=== PATIENT | female | born 1990 | race African-American/Black ===

== ENCOUNTER 2017-05-09 09:21 | Emergency (ER) | payer OTHER ==
[~2017-05-09] VITALS: Ht 172.7 cm; Wt 90.7 kg
[~2017-05-09 09:21] MED LIST: HYDR-971 PO; HYDR12.58 PO; TRAM50TA PO
--- NOTE | 2017-05-09 09:47 | PHYS DOC ---
Past History Past Medical History: Hypertension, Other Past Surgical History: Other Smoking: Cigarettes Alcohol Use: Occasionally Drug Use: None Adult General HPI HPI Patient is a 26-year-old female who was walking down stairs in the dark and slipped and fell and landed on her bottom and then fell all the way down 10 steps on her bottom. She is G1 approximately 18 weeks and is following with Dr. Franco as her OB. She says that her right lower back hurts and that she feels pelvic cramping. She denies any loss of fluids vaginal bleeding dysuria hematuria nausea vomiting. She has no difficulty ambulating and no unilateral weakness numbness or tingling. She has a history of hypertension for which she takes nifedipine for. She also has a history of trigeminal neuralgia and says that it has been hurting the left side of her face more. She has been taking Tylenol without much relief in symptoms. Review of Systems Review of Systems Constitutional: Denies fever or chills [] Eyes: Denies change in visual acuity, redness, or eye pain [] Respiratory: Denies cough or shortness of breath [] Cardiovascular: No chest pain GI: Denies abdominal pain, nausea, vomiting, bloody stools or diarrhea [] : Denies dysuria or hematuria [] Musculoskeletal: Denies back pain or joint pain [] Integument: Denies abrasion or laceration Neurologic: Denies headache, focal weakness or sensory changes [] Allergies Allergies Allergies Coded Allergies Type Severity Reaction Last Updated Verified Milk Containing Products Allergy Unknown 01/27/16 Yes lisinopril Allergy Unknown 01/27/16 No Physical Exam Physical Exam Constitutional: Well developed, well nourished, no acute distress, non-toxic appearance. [] HENT: Normocephalic, atraumatic, bilateral external ears normal, oropharynx moist, no oral exudates, nose normal. [] Eyes: PERRLA, EOMI, conjunctiva normal, no discharge. [] Neck: Normal range of motion, no tenderness, supple, no stridor. [] Cardiovascular:Heart rate regular rhythm, no murmur [] Lungs & Thorax: Bilateral breath sounds clear to auscultation [] Abdomen: Bowel sounds normal, soft, no tenderness, no masses, no pulsatile masses. [] Skin: Warm, dry, no erythema, no rash. [] Back: No tenderness, no CVA tenderness. [] Extremities: No tenderness, no cyanosis, no clubbing, ROM intact, no edema. [] Neurologic: Alert and oriented X 3, normal motor function, normal sensory function, no focal deficits noted. [] Psychologic: Affect normal, judgement normal, mood normal. [] EKG EKG [] Radiology/Procedures Radiology/Procedures [] Course & Med Decision Making Course & Med Decision Making Patient has mild right lumbar tenderness to palpation. No abdominal tenderness on examination and she has a normal bedside ultrasound. I spoke to Dr. Henderson who is on-call for patient's OB and he said if there is no bleeding that patient could be discharged with reassurance. He looked up her blood type and it is O+. I will refer patient to neurology for her trigeminal neuralgia and provide her Tylenol with Codeine for her pain for now. Patient aware and agreeable with plan for discharge and verbalized understanding of the need for short-term follow-up in the strict ER return precautions discussed worsening pain bleeding or other general concerns. Dragon Disclaimer Dragon Disclaimer This chart was dictated in whole or in part using Voice Recognition software in a busy, high-work load, and often noisy Emergency Department environment. It may contain unintended and wholly unrecognized errors or omissions. Departure Departure: Impression: Primary Impression: Lumbar strain Additional Impression: Trigeminal neuralgia Disposition: 01 HOME, SELF-CARE Condition: GOOD Referrals: PCP,CHRIS (PCP) Barby OLIVEIRA MD Patient Instructions: Abdominal Pain During Scripts Acetaminophen With Codeine (TYLENOL WITH CODEINE #3 TABLET) 1 Each Tablet 1 TAB PO Q6HRS Y for PAIN, #20 TAB Prov: BENJA TURNER DO 05/09/17 Acetaminophen With Codeine (TYLENOL WITH CODEINE #3 TABLET) 1 Each Tablet 1 TAB PO Q6HRS Y for PAIN, #20 TAB Prov: BENJA TURNER DO 05/09/17 Problem Qualifiers Primary Impression: Lumbar strain Encounter type: initial encounter Qualified Codes: S39.012A - Strain of muscle, fascia and tendon of lower back, initial encounter BENJA TURNER DO May 09, 2017 09:47
[2017-05-09] MEDS ORDERED: ACET-704 PO ×2 (10:03→10:08)
[2017-05-09 10:20] VITALS: BP 157/100
[2017-05-09] MEDS ORDERED: ACETAMINOPHEN/CODEINE 300/30MG TABLET PO ONE (10:30)
== END 2017-05-09 10:20 | disposition home or self-care (01) ==
LOC: ER 09:21
DX: O9A.212 Injury, poisoning and certain other consequences of external causes complicating pregnancy, second trimester (principal); S39.012A Strain of muscle, fascia and tendon of lower back, initial encounter; O99.352 Diseases of the nervous system complicating pregnancy, second trimester; O16.2 Unspecified maternal hypertension, second trimester; G50.0 Trigeminal neuralgia; O99.332 Smoking (tobacco) complicating pregnancy, second trimester; Z3A.18 18 weeks gestation of pregnancy; Z88.8 Allergy status to other drugs, medicaments and biological substances; Z91.011 Allergy to milk products; W10.8XXA Fall (on) (from) other stairs and steps, initial encounter; Y93.01 Activity, walking, marching and hiking; Y99.8 Other external cause status; Y92.89 Other specified places as the place of occurrence of the external cause
CPT/HCPCS: 99283

== ENCOUNTER 2017-10-17 12:56 | Emergency (ER) | payer OTHER ==
[~2017-10-17] VITALS: Ht 160 cm; Wt 94.3 kg
[~2017-10-17 12:56] MED LIST changes: +ACET-704 PO
[2017-10-17] MEDS ORDERED: IPRATRPIUM/ALBUTEROL 0.5/2.5MG 3 ML NEBU. NEB ONE (13:45)
--- NOTE | 2017-10-17 13:49 | RAD ---
Chest, 2 views, 10/17/2017: History: Cough, back pain Comparison is made to a study from 09/01/2014. The heart size and pulmonary vascularity are normal. There is a surgical clip projected over the right hilum. No pulmonary infiltrate is seen. There is no evidence of pleural fluid. There is a mild right convexity thoracic scoliosis. IMPRESSION: No acute cardiopulmonary abnormality is detected.
--- NOTE | 2017-10-17 13:53 | RAD ---
Lumbar spine, 3 views, 10/17/2017: History: Back pain The lumbar vertebral heights and intervertebral disc spaces are well-maintained. No fracture or dislocation is evident. There is a mild left convexity thoracolumbar scoliosis. There is a small radiopacity projected over the right paraspinous region at the renal level. The appearance raises the possibility of an intrarenal calculus. This was also evident on the 07/13/2016 exam. IMPRESSION: 1. Mild lumbar scoliosis. 2. No acute lumbar spine abnormality is detected. 3. Persistent right paraspinous calcification raising the possibility of a urinary tract calculus versus a phlebolith.
--- NOTE | 2017-10-17 14:05 | PHYS DOC ---
Past History Past Medical History: Hypertension, Other Past Surgical History: Other Smoking: Non-smoker Alcohol Use: Occasionally Drug Use: None Adult General Chief Complaint Chief Complaint: MULTIPLE COMPLAINTS, BACK PAIN, COUGH HPI HPI 27-year-old female patient with normal vaginal delivery 4 weeks ago at [facility] states she had an accidental fall while she was at Hospital and was told that everything was fine but her chronic back pain getting worse since she was discharged from hospital. Patient states she had another accidental fall while was at shower and since then her back pain getting worse. Patient denies radiation of pain and states her pain is sharp without neurodeficit and urine and bowel incontinence. Patient also complaining of productive cough for the last one week and earache and nasal congestion and subjective fever. Patient complaining of pain in bilateral side of her chest during episodes of cough and rated her pain 9/10 as a sharp pain. Patient denied sick contacts at home, shortness of breath, severe vaginal bleeding or discharge. Patient currently is not breast-feeding her baby. Review of Systems Review of Systems Constitutional: Reports fever and chills [] Eyes: Denies change in visual acuity, redness, or eye pain [] HENT: Reports nasal congestion, denies sore throat [] Respiratory: Denies shortness of breath, reports cough [] Cardiovascular: No additional information not addressed in HPI [] GI: Denies abdominal pain, nausea, vomiting, bloody stools or diarrhea [] : Denies dysuria or hematuria [] Musculoskeletal: Reports back pain, denies joint pain [] Integument: Denies rash or skin lesions [] Neurologic: Denies headache, focal weakness or sensory changes [] Endocrine: Denies polyuria or polydipsia [] All other systems were reviewed and found to be within normal limits, except as documented in this note. Current Medications Current Medications Current Medications Medications (Trade) Dose Ordered Sig/Andrzej Start Time Stop Time Status Last Admin Dose Admin Albuterol/ Ipratropium (Duoneb) 3 ml 1X ONCE 10/17/17 13:45 10/17/17 13:46 UNV Allergies Allergies Allergies Coded Allergies Type Severity Reaction Last Updated Verified Milk Containing Products Allergy Unknown 01/27/16 Yes lisinopril Allergy Unknown 01/27/16 No Physical Exam Physical Exam Constitutional: Well nourished, mild distress, non-toxic appearance,looks depress. [] HENT: Normocephalic, atraumatic, bilateral external ears normal, oropharynx moist, no oral exudates, nose normal. [] Eyes: PERRLA, EOMI, conjunctiva normal, no discharge. [] Neck: Normal range of motion, no tenderness, supple, no stridor. [] Cardiovascular:Heart rate regular rhythm, no murmur [] Lungs & Thorax: Bilateral breath sounds clear to auscultation [] Abdomen: Bowel sounds normal, soft, no tenderness, no masses, no pulsatile masses. [] Skin: Warm, dry, no erythema, no rash. [] Back: No tenderness, no CVA tenderness. [] Extremities: No tenderness, no cyanosis, no clubbing, ROM intact, no edema. [] Neurologic: Alert and oriented X 3, normal motor function, normal sensory function, no focal deficits noted. [] Psychologic: Affect normal, judgement normal, depressed mood. EKG EKG [] Radiology/Procedures Radiology/Procedures X-ray of lumbar spine and chest x-ray did not show acute finding.[] Course & Med Decision Making Course & Med Decision Making Pertinent Imaging studies reviewed. (See chart for details) Evaluation of patient in ER showed 27-year-old female patient with complaining of several medical problems including chronic back pain exacerbation and cough with pain in her chest during episodes of cough. Patient had unremarkable physical exam except for depression but denies suicidal and homicidal ideation or hallucination. Lumbar x-ray was unremarkable except for possible phlebitis or kidney stone. Patient did not have hematuria or history of kidney stone and her pain was chronic for almost one month without concern for kidney stone. Patient felt better with treatment in ER. Plan discharge patient home with diagnosis of bronchitis and chronic back pain exacerbation. [] Dragon Disclaimer Dragon Disclaimer This electronic medical record was generated, in whole or in part, using a voice recognition dictation system. Departure Departure: Impression: Primary Impression: Exacerbation of chronic back pain Additional Impressions: Acute bronchiolitis Uncontrolled hypertension Fall at home Disposition: HOME, SELF-CARE (At 1425) Condition: IMPROVED Referrals: PCP,NO (PCP) Patient Instructions: Back Pain, Adult, Bronchitis Additional Instructions: Apply ice on your back Getting plenty of liquids Scripts Benzonatate (TESSALON PERLE) 100 Mg Capsule 1 CAP PO TID, #21 CAP Prov: GABE ALBA MD 10/17/17 Naproxen (NAPROSYN) 500 Mg Tablet 500 MG PO BID Y for PAIN, #14 TAB Prov: GABE ALBA MD 10/17/17 Azithromycin (ZITHROMAX) 250 Mg Tablet 1 PKG PO UD, #6 TAB Prov: GABE ALBA MD 10/17/17 Problem Qualifiers GABE ALBA MD Oct 17, 2017 14:05
[2017-10-17 14:10] VITALS: BP 158/95
[2017-10-17] MEDS ORDERED: AZIT250T PO (14:29)
[2017-10-17] MEDS ORDERED: BENZ100C PO (14:29)
[2017-10-17] MEDS ORDERED: NAPR-683 PO (14:29)
== END 2017-10-17 14:34 | disposition home or self-care (01) ==
LOC: ER 12:56
DX: O90.89 Other complications of the puerperium, not elsewhere classified (principal); O99.53 Diseases of the respiratory system complicating the puerperium; M54.89 Other dorsalgia; G89.29 Other chronic pain; J21.9 Acute bronchiolitis, unspecified; I10 Essential (primary) hypertension; W19.XXXA Unspecified fall, initial encounter; Y93.89 Activity, other specified; Y99.8 Other external cause status; Y92.89 Other specified places as the place of occurrence of the external cause
CPT/HCPCS: 71020; 72100; 94640; 99284; J7620

== ENCOUNTER 2019-05-15 14:21 | Emergency (ER) | payer OTHER ==
[~2019-05-15] VITALS: Ht 160 cm; Wt 79.5 kg
[~2019-05-15 14:21] MED LIST changes: +AZIT250T PO; +BENZ100C PO; +HYDR-3165 PO; -HYDR-971 PO; +NAPR-683 PO
[2019-05-15 14:35] VITALS: BP 128/77
[2019-05-15 15:07] LABS: AMPHETAMINE/METHAMPHETAMINE NEG (NEG); BARBITURATES NEG (NEG); BENZODIAZEPINES NEG (NEG); CANNABINOIDS NEG (NEG); COCAINE NEG (NEG); METHADONE NEG (NEG); OPIATES NEG (NEG); PHENCYCLIDINE NEG (NEG)
[2019-05-15 15:12] LABS: AMORPHOUS SEDIMENT,UR PRESENT /HPF; BACTERIA,URINE FEW /HPF (0-FEW); BILIRUBIN,URINE NEG (NEG); CLARITY,URINE TURBID; COLOR,URINE AMBER; GLUCOSE,URINE NEG (NEG); NITRITE,URINE NEG (NEG); RBC,URINE OCC /HPF (0-2); SQUAMOUS EPITHELIAL CELL,UR FEW /LPF; UROBILINOGEN,URINE 4 mg/dL (0.2 mg/dL)
[2019-05-15 15:13] LABS: BASO % 1 % (0-3); EOS % 0 % (0-3); HEMATOCRIT 36.6 % (36.0-47.0); HEMOGLOBIN 12.1 g/dL (12.0-15.5); LYMPH # 0.9 x10^3/uL (1.0-4.8); LYMPH % 23 % (24-48); MEAN CORPUSCULAR HEMOGLOBIN 29 pg (25-35); MEAN CORPUSCULAR HGB CONC 33 g/dL (31-37); MEAN CORPUSCULAR VOLUME 87 fL (79-100); MONO # 0.4 x10^3/uL (0.0-1.1); MONO % 10 % (0-9); NEUT # 2.5 x10^3uL (1.8-7.7); NEUT % 66 % (31-73); PLATELET COUNT 190 x10^3/uL (140-400); RED BLOOD COUNT 4.19 x10^6/uL (3.50-5.40); RED CELL DISTRIBUTION WIDTH 14.5 % (11.5-14.5); WHITE BLOOD COUNT 3.8 x10^3/uL (4.0-11.0)
--- NOTE | 2019-05-15 15:19 | PHYS DOC ---
Past History Past Medical History: Anxiety, Depression, Hypertension (KAUSHAL BOWER Jr., DO) Past Surgical History: Other (KAUSHAL BOWER Jr., DO) Smoking: Non-smoker Alcohol Use: Occasionally Drug Use: None (KAUSHAL BOWER Jr., DO) Adult General Chief Complaint Chief Complaint: PSYCH EVALUATION HPI HPI Patient is a 29-year-old female who presents with report of severe anxiety and history of auditory hallucinations. She indicates that she is not been having any hallucinations today. She states that she had gone over to the [facility] and would like to be admitted for mental health evaluation and management. She denies any suicidal or homicidal ideations.[] (KAUSHAL BOWER Jr., DO) Review of Systems Review of Systems Constitutional: Denies fever or chills [] Respiratory: Denies cough or shortness of breath [] Cardiovascular: No additional information not addressed in HPI [] GI: Denies abdominal pain, nausea, vomiting, bloody stools or diarrhea [] Musculoskeletal: Admits to chronic back pain [] Integument: Denies rash or skin lesions [] All other systems were reviewed and found to be within normal limits, except as documented in this note. (KAUSHAL BOWER Jr., DO) Allergies Allergies Allergies Coded Allergies Type Severity Reaction Last Updated Verified Milk Containing Products Allergy Unknown 01/27/16 Yes lisinopril Allergy Unknown 01/27/16 No (KAUSHAL BOWER Jr., DO) Physical Exam Physical Exam Constitutional: Well developed, well nourished, no acute distress, non-toxic appearance. [] HENT: Normocephalic, atraumatic, bilateral external ears normal, oropharynx moist, no oral exudates, nose normal. [] Eyes: PERRLA, EOMI, conjunctiva normal, no discharge. [] Neck: Normal range of motion, no tenderness, supple, no stridor. [] Cardiovascular:Heart rate regular rhythm, no murmur [] Lungs & Thorax: Bilateral breath sounds clear to auscultation [] Abdomen: Bowel sounds normal, soft. [] Skin: Warm, dry, no erythema, no rash. [] Extremities: No tenderness, no cyanosis, no clubbing, ROM intact, no edema. [] Neurologic: Alert and oriented X 3, no focal deficits noted. [] Psychologic: Flattened affect with depressed mood. [] (KAUSHAL BOWER Jr. DO) Current Patient Data Vital Signs Vital Signs Date Time Temp Pulse Resp B/P (MAP) Pulse Ox O2 Delivery O2 Flow Rate FiO2 05/15/19 14:35 98.2 100 18 98 Room Air Lab Results Laboratory Tests Test 05/15/19 14:44 Urine Collection Type Unknown Urine Color Hort[place]ia Urine Clarity Turbid Urine pH 8.0 Urine Specific [place] 1.020 Urine Protein 30 mg/dl (NEG-TRACE) Urine Glucose (UA) Neg mg/dL (NEG) Urine Ketones (Stick) Trace mg/dL (NEG) Urine Blood Neg (NEG) Urine Nitrite Neg (NEG) Urine Bilirubin Neg (NEG) Urine Urobilinogen Dipstick 4 mg/dL (0.2 mg/dL) Urine Leukocyte Esterase Neg (NEG) Urine RBC Occ /HPF (0-2) Urine WBC 1-4 /HPF (0-4) Urine Squamous Epithelial Cells Few /LPF Urine Amorphous Sediment Present /HPF Urine Bacteria Few /HPF (0-FEW) Urine Mucus Slight /LPF Urine Opiates Screen Neg (NEG) Urine Methadone Screen Neg (NEG) Urine Barbiturates Neg (NEG) Urine Phencyclidine Screen Neg (NEG) Urine Amphetamine/Methamphetamine Neg (NEG) Urine Benzodiazepines Screen Neg (NEG) Urine Cocaine Screen Neg (NEG) Urine Cannabinoids Screen Neg (NEG) Urine Ethyl Alcohol Neg (NEG) (KAUSHAL BOWER Jr. DO) EKG EKG [] (KAUSHAL BOWER Jr. DO) Radiology/Procedures Radiology/Procedures [] (KAUSHAL BOWER Jr., DO) Course & Med Decision Making Course & Med Decision Making Pertinent Labs and Imaging studies reviewed. (See chart for details) Patient moved to room upon arrival was evaluated by your medical staff after which mental health workup has been initiated on this patient. Upon completion of workup, patient cleared medically and Norberto from [facility] has come to evaluate patient. Patient is requesting voluntary admission for further management of her anxiety and hallucinations. At this time, we are awaiting accepting facility and patient is being signed out to oncoming ER physician at 6:00 PM. (KAUSHAL BOWER Jr., DO) Course & Med Decision Making Impression: 1. Anxiety Disorder 2. Schizoaffective Disorder 3. Hallucinations Wanting for placement - 1800 Waiting for placement- request crackers and a drink. Very flat affect. 1900 hrs. 2000 hrs. unable to find placement for pt. [facility] requested pt to be discharge and to follow with them lst thing in the AM . Discussed this plan with pt. Pt. denies any suicidal or suicidal ideation. Pt. states the voices are not telling her to do " anything bad". They are just irritating. Pt. does agree to on low dose of Zyprexa before discharge. (TRAM HOWARD MD) Dragon Disclaimer Dragon Disclaimer This electronic medical record was generated, in whole or in part, using a voice recognition dictation system. (KAUSHAL BOWER Jr. DO) Departure Departure: Impression: Primary Impression: Hallucinations Disposition: HOME, SELF-CARE Condition: STABLE Referrals: ALBERTO COLON (PCP) Discharge Summary Visit Information Final Diagnosis Problems Medical Problems: (1) Hallucinations Status: Acute (TRAM HOWARD MD) Final Diagnosis Problems Medical Problems: (1) Hallucinations Status: Acute (KAUSHAL BOWER Jr., DO) Brief Hospital Course Allergies Allergies Coded Allergies Type Severity Reaction Last Updated Verified Milk Containing Products Allergy Unknown 01/27/16 Yes lisinopril Allergy Unknown 01/27/16 No Vital Signs Vital Signs Date Time Temp Pulse Resp B/P (MAP) Pulse Ox O2 Delivery O2 Flow Rate FiO2 05/15/19 14:35 98.2 100 18 98 Room Air Lab Results Laboratory Tests Test 05/15/19 14:44 05/15/19 15:00 Urine Collection Type Unknown Urine Color Hort[place]ia Urine Clarity Turbid Urine pH 8.0 Urine Specific [place] 1.020 Urine Protein 30 mg/dl (NEG-TRACE) Urine Glucose (UA) Neg mg/dL (NEG) Urine Ketones (Stick) Trace mg/dL (NEG) Urine Blood Neg (NEG) Urine Nitrite Neg (NEG) Urine Bilirubin Neg (NEG) Urine Urobilinogen Dipstick 4 mg/dL (0.2 mg/dL) Urine Leukocyte Esterase Neg (NEG) Urine RBC Occ /HPF (0-2) Urine WBC 1-4 /HPF (0-4) Urine Squamous Epithelial Cells Few /LPF Urine Amorphous Sediment Present /HPF Urine Bacteria Few /HPF (0-FEW) Urine Mucus Slight /LPF Urine Opiates Screen Neg (NEG) Urine Methadone Screen Neg (NEG) Urine Barbiturates Neg (NEG) Urine Phencyclidine Screen Neg (NEG) Urine Amphetamine/Methamphetamine Neg (NEG) Urine Benzodiazepines Screen Neg (NEG) Urine Cocaine Screen Neg (NEG) Urine Cannabinoids Screen Neg (NEG) Urine Ethyl Alcohol Neg (NEG) White Blood Count 3.8 x10^3/uL (4.0-11.0) Red Blood Count 4.19 x10^6/uL (3.50-5.40) Hemoglobin 12.1 g/dL (12.0-15.5) Hematocrit 36.6 % (36.0-47.0) Mean Corpuscular Volume 87 fL (79-100) Mean Corpuscular Hemoglobin 29 pg (25-35) Mean Corpuscular Hemoglobin Concent 33 g/dL (31-37) Red Cell Distribution Width 14.5 % (11.5-14.5) Platelet Count 190 x10^3/uL (140-400) Neutrophils (%) (Auto) 66 % (31-73) Lymphocytes (%) (Auto) 23 % (24-48) Monocytes (%) (Auto) 10 % (0-9) Eosinophils (%) (Auto) 0 % (0-3) Basophils (%) (Auto) 1 % (0-3) Neutrophils # (Auto) 2.5 x10^3uL (1.8-7.7) Lymphocytes # (Auto) 0.9 x10^3/uL (1.0-4.8) Monocytes # (Auto) 0.4 x10^3/uL (0.0-1.1) Eosinophils # (Auto) 0.0 x10^3/uL (0.0-0.7) Basophils # (Auto) 0.0 x10^3/uL (0.0-0.2) Sodium Level 142 mmol/L (136-145) Potassium Level 3.5 mmol/L (3.5-5.1) Chloride Level 107 mmol/L (98-107) Carbon Dioxide Level 28 mmol/L (21-32) Anion Gap 7 (6-14) Blood Urea Nitrogen 9 mg/dL (7-20) Creatinine 0.8 mg/dL (0.6-1.0) Estimated GFR (Cockcroft-Gault) 103.3 BUN/Creatinine Ratio 11 (6-20) Glucose Level 103 mg/dL (70-99) Calcium Level 8.9 mg/dL (8.5-10.1) Magnesium Level 2.0 mg/dL (1.8-2.4) Total Bilirubin 0.5 mg/dL (0.2-1.0) Aspartate Amino Transf (AST/SGOT) 10 U/L (15-37) Alanine Aminotransferase (ALT/SGPT) 20 U/L (14-59) Alkaline Phosphatase 63 U/L (46-116) Total Protein 7.1 g/dL (6.4-8.2) Albumin 3.7 g/dL (3.4-5.0) Albumin/Globulin Ratio 1.1 (1.0-1.7) Ethyl Alcohol Level < 10 mg/dL (0-10) Brief Hospital Course Ms. Herbert is a 29 old female who presented with anxiety and schizoaffective disorder. Discharged home with follow up in AM at [facility]. Pt. has establish care at the clinic. (TRAM HOWARD MD) Allergies Allergies Coded Allergies Type Severity Reaction Last Updated Verified Milk Containing Products Allergy Unknown 01/27/16 Yes lisinopril Allergy Unknown 01/27/16 No Vital Signs Vital Signs Date Time Temp Pulse Resp B/P (MAP) Pulse Ox O2 Delivery O2 Flow Rate FiO2 05/15/19 14:35 98.2 100 18 98 Room Air Lab Results Laboratory Tests Test 05/15/19 14:44 05/15/19 15:00 Urine Collection Type Unknown Urine Color [place]ia Urine Clarity Turbid Urine pH 8.0 Urine Specific [place] 1.020 Urine Protein 30 mg/dl (NEG-TRACE) Urine Glucose (UA) Neg mg/dL (NEG) Urine Ketones (Stick) Trace mg/dL (NEG) Urine Blood Neg (NEG) Urine Nitrite Neg (NEG) Urine Bilirubin Neg (NEG) Urine Urobilinogen Dipstick 4 mg/dL (0.2 mg/dL) Urine Leukocyte Esterase Neg (NEG) Urine RBC Occ /HPF (0-2) Urine WBC 1-4 /HPF (0-4) Urine Squamous Epithelial Cells Few /LPF Urine Amorphous Sediment Present /HPF Urine Bacteria Few /HPF (0-FEW) Urine Mucus Slight /LPF Urine Opiates Screen Neg (NEG) Urine Methadone Screen Neg (NEG) Urine Barbiturates Neg (NEG) Urine Phencyclidine Screen Neg (NEG) Urine Amphetamine/Methamphetamine Neg (NEG) Urine Benzodiazepines Screen Neg (NEG) Urine Cocaine Screen Neg (NEG) Urine Cannabinoids Screen Neg (NEG) Urine Ethyl Alcohol Neg (NEG) White Blood Count 3.8 x10^3/uL (4.0-11.0) Red Blood Count 4.19 x10^6/uL (3.50-5.40) Hemoglobin 12.1 g/dL (12.0-15.5) Hematocrit 36.6 % (36.0-47.0) Mean Corpuscular Volume 87 fL (79-100) Mean Corpuscular Hemoglobin 29 pg (25-35) Mean Corpuscular Hemoglobin Concent 33 g/dL (31-37) Red Cell Distribution Width 14.5 % (11.5-14.5) Platelet Count 190 x10^3/uL (140-400) Neutrophils (%) (Auto) 66 % (31-73) Lymphocytes (%) (Auto) 23 % (24-48) Monocytes (%) (Auto) 10 % (0-9) Eosinophils (%) (Auto) 0 % (0-3) Basophils (%) (Auto) 1 % (0-3) Neutrophils # (Auto) 2.5 x10^3uL (1.8-7.7) Lymphocytes # (Auto) 0.9 x10^3/uL (1.0-4.8) Monocytes # (Auto) 0.4 x10^3/uL (0.0-1.1) Eosinophils # (Auto) 0.0 x10^3/uL (0.0-0.7) Basophils # (Auto) 0.0 x10^3/uL (0.0-0.2) Sodium Level 142 mmol/L (136-145) Potassium Level 3.5 mmol/L (3.5-5.1) Chloride Level 107 mmol/L (98-107) Carbon Dioxide Level 28 mmol/L (21-32) Anion Gap 7 (6-14) Blood Urea Nitrogen 9 mg/dL (7-20) Creatinine 0.8 mg/dL (0.6-1.0) Estimated GFR (Cockcroft-Gault) 103.3 BUN/Creatinine Ratio 11 (6-20) Glucose Level 103 mg/dL (70-99) Calcium Level 8.9 mg/dL (8.5-10.1) Magnesium Level 2.0 mg/dL (1.8-2.4) Total Bilirubin 0.5 mg/dL (0.2-1.0) Aspartate Amino Transf (AST/SGOT) 10 U/L (15-37) Alanine Aminotransferase (ALT/SGPT) 20 U/L (14-59) Alkaline Phosphatase 63 U/L (46-116) Total Protein 7.1 g/dL (6.4-8.2) Albumin 3.7 g/dL (3.4-5.0) Albumin/Globulin Ratio 1.1 (1.0-1.7) Ethyl Alcohol Level < 10 mg/dL (0-10) Brief Hospital Course Ms. Herbert is a 29 old [sex] who presented with [ ] (KAUSHAL BOWER Jr. DO) Discharge Information Condition at Discharge: Improved, Stable Disposition/Orders: D/C to Home Dischare Medications Current Medications Olanzapine (ZyPREXA) 2.5 mg 1X ONCE PO Last administered on 05/15/19at 20:42; Start 05/15/19 at 20:45; Stop 05/15/19 at 20:46; Status DC Active Scripts Active Tessalon Perle (Benzonatate) 100 Mg Capsule 1 Cap PO TID Naprosyn (Naproxen) 500 Mg Tablet 500 Mg PO BID PRN Zithromax (Azithromycin) 250 Mg Tablet 1 Pkg PO UD Tylenol With Codeine #3 Tablet (Acetaminophen With Codeine) 1 Each Tablet 1 Tab PO Q6HRS PRN Tylenol With Codeine #3 Tablet (Acetaminophen With Codeine) 1 Each Tablet 1 Tab PO Q6HRS PRN Tramadol Hcl (Tramadol HCl) 50 Mg Tablet 50 Mg PO PRN Q6HRS PRN (TRAM HOWARD MD) Dischare Medications Current Medications Olanzapine (ZyPREXA) 2.5 mg 1X ONCE PO Last administered on 05/15/19at 20:42; Start 05/15/19 at 20:45; Stop 05/15/19 at 20:46; Status DC Active Scripts Active Tessalon Perle (Benzonatate) 100 Mg Capsule 1 Cap PO TID Naprosyn (Naproxen) 500 Mg Tablet 500 Mg PO BID PRN Zithromax (Azithromycin) 250 Mg Tablet 1 Pkg PO UD Tylenol With Codeine #3 Tablet (Acetaminophen With Codeine) 1 Each Tablet 1 Tab PO Q6HRS PRN Tylenol With Codeine #3 Tablet (Acetaminophen With Codeine) 1 Each Tablet 1 Tab PO Q6HRS PRN Tramadol Hcl (Tramadol HCl) 50 Mg Tablet 50 Mg PO PRN Q6HRS PRN (AKUSHAL BOWER Jr. DO) Dragon Disclaimer This chart was dictated in whole or in part using Voice Recognition software in a busy, high-work load, and often noisy Emergency Department environment. It may contain unintended and wholly unrecognized errors or omissions. (TRAM HOWARD MD) Dragon Disclaimer This chart was dictated in whole or in part using Voice Recognition software in a busy, high-work load, and often noisy Emergency Department environment. It may contain unintended and wholly unrecognized errors or omissions. (KAUSHAL BOWER Jr. DO) KAUSHAL BOWER Jr., DO May 15, 2019 15:19 TRAM HOWARD MD May 15, 2019 18:13
[2019-05-15 15:29] LABS: ALBUMIN 3.7 g/dL (3.4-5.0); ALBUMIN/GLOBULIN RATIO 1.1 (1.0-1.7); CALCIUM 8.9 mg/dL (8.5-10.1); CREATININE 0.8 mg/dL (0.6-1.0); GFR 103.3; POTASSIUM 3.5 mmol/L (3.5-5.1); TOTAL BILIRUBIN 0.5 mg/dL (0.2-1.0); TOTAL PROTEIN 7.1 g/dL (6.4-8.2)
[2019-05-15] MEDS ORDERED: OLANZapine 2.5 MG TABLET PO ONE (20:45)
== END 2019-05-15 21:17 | disposition home or self-care (01) ==
LOC: ER 14:21
DX: F20.9 Schizophrenia, unspecified (principal); F41.9 Anxiety disorder, unspecified; G89.29 Other chronic pain; M54.89 Other dorsalgia; F32.9 Major depressive disorder, single episode, unspecified; I10 Essential (primary) hypertension; Z88.8 Allergy status to other drugs, medicaments and biological substances; Z91.011 Allergy to milk products
CPT/HCPCS: 36415; 80053; 80307; 81001; 83735; 85025; 99284; G0480

== ENCOUNTER 2019-05-20 09:12 | Emergency (ER) | payer OTHER ==
[2019-05-20 10:05] LABS: BASO % 1 % (0-3); EOS % 1 % (0-3); HEMATOCRIT 38.7 % (36.0-47.0); HEMOGLOBIN 12.8 g/dL (12.0-15.5); LYMPH # 0.9 x10^3/uL (1.0-4.8); LYMPH % 24 % (24-48); MEAN CORPUSCULAR HEMOGLOBIN 29 pg (25-35); MEAN CORPUSCULAR HGB CONC 33 g/dL (31-37); MEAN CORPUSCULAR VOLUME 88 fL (79-100); MONO # 0.3 x10^3/uL (0.0-1.1); MONO % 9 % (0-9); NEUT # 2.4 x10^3uL (1.8-7.7); NEUT % 65 % (31-73); PLATELET COUNT 201 x10^3/uL (140-400); RED BLOOD COUNT 4.41 x10^6/uL (3.50-5.40); RED CELL DISTRIBUTION WIDTH 14.6 % (11.5-14.5); WHITE BLOOD COUNT 3.7 x10^3/uL (4.0-11.0)
[2019-05-20 10:14] LABS: AMPHETAMINE/METHAMPHETAMINE NEG (NEG); BARBITURATES NEG (NEG); BENZODIAZEPINES NEG (NEG); CANNABINOIDS NEG (NEG); COCAINE NEG (NEG); METHADONE NEG (NEG); OPIATES NEG (NEG); PHENCYCLIDINE NEG (NEG)
[2019-05-20 10:17] LABS: BACTERIA,URINE FEW /HPF (0-FEW); BILIRUBIN,URINE SMALL (NEG); CLARITY,URINE HAZY; COLOR,URINE YELLOW; GLUCOSE,URINE NEG (NEG); NITRITE,URINE NEG (NEG); SQUAMOUS EPITHELIAL CELL,UR MANY /LPF; UROBILINOGEN,URINE 2 mg/dL (0.2 mg/dL)
[2019-05-20 10:18] LABS: ALBUMIN 3.8 g/dL (3.4-5.0); CALCIUM 8.7 mg/dL (8.5-10.1); CREATININE 0.7 mg/dL (0.6-1.0); DIRECT BILIRUBIN 0.1 mg/dL (0.0-0.2); GFR 120.6; POTASSIUM 3.7 mmol/L (3.5-5.1); TOTAL BILIRUBIN 0.3 mg/dL (0.2-1.0); TOTAL PROTEIN 7.4 g/dL (6.4-8.2)
[2019-05-20 10:18] LABS: AMORPHOUS SEDIMENT,UR PRESENT /HPF; U PREG PATIENT NEGATIVE (NEG)
[2019-05-20] MEDS ORDERED: ACETAMINOPHEN 500 MG TABLET PO ONE (16:15)
--- NOTE | 2019-05-20 16:47 | PHYS DOC ---
Past History Past Medical History: Anxiety, Depression (GABE ALBA MD) Past Surgical History: No Surgical History (GABE ALBA MD) Smoking: Non-smoker Alcohol Use: None Drug Use: None (GABE ALBA MD) Adult General Chief Complaint Chief Complaint: ANXIETY/PANIC ATTACK HPI HPI Patient is a 29 year old female who presents with complaining of anxiety. Patient complaining of slightly for the last 2 years that getting worse gradually and she states he has" mental health emergency" and needs to come to the hospital. She denies suicidal and homicidal ideation and hallucination but states she feels hopeless. Patient states she was admitted to [facility] for the same problem on May and discharged home with prescription for Paxil and blood pressure medication. Patient denies history of suicidal ideation or attempt regnancy, using drugs or alcohol. (GABE ALBA MD) Review of Systems Review of Systems Constitutional: Denies fever or chills [] Eyes: Denies change in visual acuity, redness, or eye pain [] HENT: Denies nasal congestion or sore throat [] Respiratory: Denies cough or shortness of breath [] Cardiovascular: No additional information not addressed in HPI [] GI: Denies abdominal pain, nausea, vomiting, bloody stools or diarrhea [] : Denies dysuria or hematuria [] Musculoskeletal: Reports chronic back pain, denies joint pain [] Integument: Denies rash or skin lesions [] Neurologic: Denies headache, focal weakness or sensory changes [] Endocrine: Denies polyuria or polydipsia [] All other systems were reviewed and found to be within normal limits, except as documented in this note. (GABE ALBA MD) Current Medications Current Medications Current Medications Medications (Trade) Dose Ordered Sig/Andrzej Start Time Stop Time Status Last Admin Dose Admin Acetaminophen (Tylenol) 1,000 mg 1X ONCE 05/20/19 16:15 05/20/19 16:16 DC (GABE ALBA MD) Allergies Allergies Allergies Coded Allergies Type Severity Reaction Last Updated Verified Milk Containing Products Allergy Unknown 01/27/16 Yes lisinopril Allergy Unknown 01/27/16 No (GABE ALBA MD) Physical Exam Physical Exam Constitutional: Well nourished, no acute distress, non-toxic appearance, avoid eye contact. [] HENT: Normocephalic, atraumatic, bilateral external ears normal, oropharynx moist, no oral exudates, nose normal. [] Eyes: PERRLA, EOMI, conjunctiva normal, no discharge. [] Neck: Normal range of motion, no tenderness, supple, no stridor. [] Cardiovascular:Heart rate regular rhythm, no murmur [] Lungs & Thorax: Bilateral breath sounds clear to auscultation [] Abdomen: Bowel sounds normal, soft, no tenderness, no masses, no pulsatile masses. [] Skin: Warm, dry, no erythema, no rash. [] Back: No tenderness, no CVA tenderness. [] Extremities: No tenderness, no cyanosis, no clubbing, ROM intact, no edema. [] Neurologic: Alert and oriented X 3, normal motor function, normal sensory function, no focal deficits noted. [] Psychologic: Affect depressed, judgement normal, mood normal. [] (GABE ALBA MD) Current Patient Data Vital Signs Vital Signs Date Time Temp Pulse Resp B/P (MAP) Pulse Ox O2 Delivery O2 Flow Rate FiO2 05/20/19 09:38 87 18 100 Room Air Lab Results Laboratory Tests Test 05/20/19 09:30 05/20/19 09:53 Urine Collection Type Unknown Urine Color Yellow Urine Clarity Hazy Urine pH 7.5 Urine Specific [place] 1.020 Urine Protein 30 mg/dl (NEG-TRACE) Urine Glucose (UA) Neg mg/dL (NEG) Urine Ketones (Stick) Trace mg/dL (NEG) Urine Blood Neg (NEG) Urine Nitrite Neg (NEG) Urine Bilirubin Small (NEG) Urine Urobilinogen Dipstick 2 mg/dL (0.2 mg/dL) Urine Leukocyte Esterase Trace (NEG) Urine RBC 1-2 /HPF (0-2) Urine WBC 1-4 /HPF (0-4) Urine Squamous Epithelial Cells Many /LPF Urine Amorphous Sediment Present /HPF Urine Bacteria Few /HPF (0-FEW) Urine Mucus Marked /LPF Urine Test Negative (NEG) Urine Opiates Screen Neg (NEG) Urine Methadone Screen Neg (NEG) Urine Barbiturates Neg (NEG) Urine Phencyclidine Screen Neg (NEG) Urine Amphetamine/Methamphetamine Neg (NEG) Urine Benzodiazepines Screen Neg (NEG) Urine Cocaine Screen Neg (NEG) Urine Cannabinoids Screen Neg (NEG) Urine Ethyl Alcohol Neg (NEG) White Blood Count 3.7 x10^3/uL (4.0-11.0) L Red Blood Count 4.41 x10^6/uL (3.50-5.40) Hemoglobin 12.8 g/dL (12.0-15.5) Hematocrit 38.7 % (36.0-47.0) Mean Corpuscular Volume 88 fL (79-100) Mean Corpuscular Hemoglobin 29 pg (25-35) Mean Corpuscular Hemoglobin Concent 33 g/dL (31-37) Red Cell Distribution Width 14.6 % (11.5-14.5) H Platelet Count 201 x10^3/uL (140-400) Neutrophils (%) (Auto) 65 % (31-73) Lymphocytes (%) (Auto) 24 % (24-48) Monocytes (%) (Auto) 9 % (0-9) Eosinophils (%) (Auto) 1 % (0-3) Basophils (%) (Auto) 1 % (0-3) Neutrophils # (Auto) 2.4 x10^3uL (1.8-7.7) Lymphocytes # (Auto) 0.9 x10^3/uL (1.0-4.8) L Monocytes # (Auto) 0.3 x10^3/uL (0.0-1.1) Eosinophils # (Auto) 0.0 x10^3/uL (0.0-0.7) Basophils # (Auto) 0.0 x10^3/uL (0.0-0.2) Sodium Level 142 mmol/L (136-145) Potassium Level 3.7 mmol/L (3.5-5.1) Chloride Level 107 mmol/L (98-107) Carbon Dioxide Level 26 mmol/L (21-32) Anion Gap 9 (6-14) Blood Urea Nitrogen 14 mg/dL (7-20) Creatinine 0.7 mg/dL (0.6-1.0) Estimated GFR (Cockcroft-Gault) 120.6 Glucose Level 90 mg/dL (70-99) Calcium Level 8.7 mg/dL (8.5-10.1) Total Bilirubin 0.3 mg/dL (0.2-1.0) Direct Bilirubin 0.1 mg/dL (0.0-0.2) Aspartate Amino Transferase (AST) 11 U/L (15-37) L Alanine Aminotransferase (ALT) 28 U/L (14-59) Alkaline Phosphatase 89 U/L (46-116) Total Protein 7.4 g/dL (6.4-8.2) Albumin 3.8 g/dL (3.4-5.0) Ethyl Alcohol Level < 10 mg/dL (0-10) (GABE ALBA MD) EKG EKG [] (GABE ALBA MD) Radiology/Procedures Radiology/Procedures [] (GABE ALBA MD) Course & Med Decision Making Course & Med Decision Making Pertinent Labs reviewed. (See chart for details) Evaluation of patient in ER showed 29-year-old female patient with complaining of anxiety and hopelessness without suicidal and homicidal ideation. Patient had unremarkable physical exam and labs. Patient was evaluated by [facility] staff who contacted her mother and her mother was concerned that she is not eating and doesn't do anything and locks herself inside a room. She has criteria for inpatient treatment. Waiting for involuntary placement. Sign out given to at 1800 for further evaluation and final disposition. Discussed current findings and plan with patient and family, who acknowledge understanding and agreement. (GABE ALBA MD) Course & Med Decision Making 2330: Took over care of patient at 1800. Awaiting confirmation of bed at OSH. Patient with complaint of back soreness. Given Tylenol and Ibuprofen in the ED for treatment. Vital signs stable. 0553: Patient remains in stable condition and cooperative. Care of patient signed out to [facility]. (POLLO RAMIREZ MD) Course & Med Decision Making I spoke with Dr. Tian at [facility] and he has accepted the patient. She will be transferred by ambulance. (DONNIE SHELTON DO) Dragon Disclaimer Dragon Disclaimer This electronic medical record was generated, in whole or in part, using a voice recognition dictation system. (GABE ALBA MD) Departure Departure: Impression: Primary Impression: Hopelessness Referrals: ALBERTO COLON (PCP) GABE ALBA MD May 20, 2019 16:47 POLLO RAMIREZ MD May 20, 2019 23:32 DONNIE SHELTON DO May 21, 2019 10:12
[2019-05-20] MEDS ORDERED: IBUPROFEN 600 MG TABLET. PO ONE (23:15)
[2019-05-21 09:24] VITALS: BP 137/76
== END 2019-05-21 11:25 ==
LOC: ER 09:12
DX: R45.89 Other symptoms and signs involving emotional state (principal); F41.9 Anxiety disorder, unspecified; F32.9 Major depressive disorder, single episode, unspecified; Z88.8 Allergy status to other drugs, medicaments and biological substances; Z91.011 Allergy to milk products
CPT/HCPCS: 36415; 80048; 80076; 80307; 81001; 81025; 85025; 87086; 99285; G0480

== ENCOUNTER 2019-06-26 13:41 | Emergency (ER) | payer MEDICAID, OTHER ==
[~2019-06-26] VITALS: Ht 160 cm; Wt 79.5 kg
[2019-06-26 14:13] VITALS: BP 135/100
--- NOTE | 2019-06-26 14:21 | PHYS DOC ---
Past History Past Medical History: Anxiety, Depression Past Surgical History: No Surgical History Smoking: Non-smoker Alcohol Use: None Drug Use: None Adult General Chief Complaint Chief Complaint: BACK PAIN OR INJURY HPI HPI Patient is a 29-year-old female presents complaining of right-sided low back pain after falling in the bathtub last night she also complains of bilateral knee pain. She has been able to walk on her own feet. No loss of bowel or bladder control. No syncopal episode. No chest pain or palpitations. No nausea or vomiting. No home medicines been taken. Increased pain with movement. Pain is getting worse over time. Pain is moderate in intensity.[] Review of Systems Review of Systems Constitutional: Denies fever or chills [] Eyes: Denies change in visual acuity, redness, or eye pain [] HENT: Denies nasal congestion or sore throat [] Respiratory: No difficulty breathing or cough[] Cardiovascular: No chest pain or palpitations[] GI: Denies abdominal pain, nausea, vomiting, bloody stools or diarrhea [] : Denies dysuria or hematuria [] Musculoskeletal: See history of present illness[] Integument: Denies rash or skin lesions [] Neurologic: Denies headache, focal weakness or sensory changes [] Endocrine: Denies polyuria or polydipsia [] All other systems were reviewed and found to be within normal limits, except as documented in this note. Allergies Allergies Allergies Coded Allergies Type Severity Reaction Last Updated Verified Milk Containing Products Allergy Unknown 01/27/16 Yes lisinopril Allergy Unknown 01/27/16 No Physical Exam Physical Exam Constitutional: Well developed, well nourished, no acute distress, non-toxic appearance. [] HENT: Normocephalic, atraumatic, bilateral external ears normal, oropharynx moist, no oral exudates, nose normal. [] Eyes: PERRLA, EOMI, conjunctiva normal, no discharge. [] Neck: Normal range of motion, no tenderness, supple, no stridor. [] Cardiovascular:Heart rate regular rhythm, no murmur [] Lungs & Thorax: Bilateral breath sounds clear to auscultation [] Abdomen: Bowel sounds normal, soft, no tenderness, no masses, no pulsatile masses. [] Skin: Warm, dry, no erythema, no rash. [] Back: Tenderness of the left sided paraspinal musculature. Normal gait, slightly decreased range of motion with rotation and side bending to the right. Normal rotation and side bending to the left as well as forward bending. Normal gait, no CVA tenderness. [] Extremities: Bilateral knees have diffuse tenderness, no focal bony tenderness, no varus or valgus laxity, negative drawer, negative Mirella test. A joint above and a joined below were evaluated and were normal. Distally Neurovascularly int act The other 2 extremities show: No tenderness, no cyanosis, no clubbing, ROM intact, no edema. [] Neurologic: Alert and oriented X 3, normal motor function, normal sensory function, no focal deficits noted. [] Psychologic: Affect normal, judgement normal, mood normal. [] Current Patient Data Vital Signs Vital Signs Date Time Temp Pulse Resp B/P (MAP) Pulse Ox O2 Delivery O2 Flow Rate FiO2 06/26/19 14:13 101.7 90 18 98 Room Air EKG EKG [] Radiology/Procedures Radiology/Procedures [] Course & Med Decision Making Course & Med Decision Making Pertinent Labs and Imaging studies reviewed. (See chart for details) ED course and medical decision making: Patient arrived, was placed in bed, and tolerated exam well. She was able to provide a urine sample and will treat for UTI based on this. There is no evidence of a fracture or neurologic compromise either in her back nor her knees. We will treat with outpatient pain medicines as well as antibiotics for the urinary tract infection. There is no evidence of pyelonephritis. Findings were discussed with the patient voiced understanding. All questions were answered. She was discharged in improved condition.[] Dragon Disclaimer Dragon Disclaimer This electronic medical record was generated, in whole or in part, using a voice recognition dictation system. Departure Departure: Impression: Primary Impression: Back contusion Additional Impressions: Urinary tract infection Knee contusion Disposition: 01 HOME, SELF-CARE Condition: IMPROVED Referrals: ALBERTO COLON (PCP) Follow-up in 2 days Patient Instructions: Contusion, Urinary Tract Infection Additional Instructions: Drink plenty of fluids. Take medication as prescribed. Follow-up with your regular doctor in 2 days. Return to the ER if worsening pain, loss of bowel or bladder control, or any other concerns. Scripts Orphenadrine Citrate (ORPHENADRINE CITRATE) 100 Mg Tablet.er 100 MG PO BID for BACK PAIN, #20 TAB.SR Prov: RAFAEL ABBOTT DO 06/26/19 Meloxicam (MELOXICAM) 7.5 Mg Tablet 7.5 MG PO DAILY for PAIN, #20 TAB Prov: RAFAEL ABBOTT DO 06/26/19 Cephalexin (KEFLEX) 500 Mg Capsule 500 MG PO TID for UTI for 10 Days, #30 CAP Prov: RAFAEL ABBOTT DO 06/26/19 Problem Qualifiers Primary Impression: Back contusion Encounter type: initial encounter Laterality: left Qualified Codes: S20.222A - Contusion of left back wall of thorax, initial encounter Additional Impressions: Urinary tract infection Urinary tract infection type: site unspecified Hematuria presence: without hematuria Qualified Codes: N39.0 - Urinary tract infection, site not specified Knee contusion Encounter type: initial encounter Laterality: unspecified laterality Qualified Codes: S80.00XA - Contusion of unspecified knee, initial encounter RAFAEL ABBOTT DO Jun 26, 2019 14:21
[2019-06-26] MEDS ORDERED: MELO7.5T29 PO (14:57)
[2019-06-26] MEDS ORDERED: CEPH-264 PO (14:57)
[2019-06-26] MEDS ORDERED: ORPH-16 PO (14:57)
[2019-06-26 15:06] LABS: BILIRUBIN,URINE NEG (NEG); CLARITY,URINE CLEAR; COLOR,URINE YELLOW; GLUCOSE,URINE NEG (NEG); NITRITE,URINE NEG (NEG); UROBILINOGEN,URINE 1 mg/dL (0.2 mg/dL)
== END 2019-06-26 15:12 | disposition home or self-care (01) ==
LOC: ER 13:41
DX: S30.0XXA Contusion of lower back and pelvis, initial encounter (principal); S80.02XA Contusion of left knee, initial encounter; S80.01XA Contusion of right knee, initial encounter; N39.0 Urinary tract infection, site not specified; W18.2XXA Fall in (into) shower or empty bathtub, initial encounter; Y93.89 Activity, other specified; Y92.89 Other specified places as the place of occurrence of the external cause; Y99.8 Other external cause status
CPT/HCPCS: 81003; 81025; 99283

== ENCOUNTER 2019-08-26 11:20 | Emergency (ER) | payer MEDICAID ==
[~2019-08-26] VITALS: Ht 160 cm; Wt 79.5 kg
[~2019-08-26 11:20] MED LIST changes: +CEPH-264 PO; +MELO7.5T29 PO; +ORPH-16 PO
[2019-08-26] MEDS ORDERED: IV NORMAL SALINE 1,000ML 1,000 ML IV SCH (11:58)
[2019-08-26] MEDS ORDERED: ONDANSETRON PF 4 MG/2 ML VIAL. IVP ONE (12:00)
[2019-08-26 12:40] LABS: BACTERIA,URINE FEW /HPF (0-FEW); BILIRUBIN,URINE NEG (NEG); CLARITY,URINE CLOUDY; COLOR,URINE YELLOW; GLUCOSE,URINE NEG (NEG); NITRITE,URINE NEG (NEG); RBC,URINE OCC /HPF (0-2); SQUAMOUS EPITHELIAL CELL,UR MANY /LPF; UROBILINOGEN,URINE 0.2 mg/dL (0.2 mg/dL)
[2019-08-26 12:41] LABS: AMORPHOUS SEDIMENT,UR PRESENT /HPF
[2019-08-26 12:55] LABS: BASO % 1 % (0-3); EOS % 1 % (0-3); HEMATOCRIT 43.1 % (36.0-47.0); HEMOGLOBIN 14.4 g/dL (12.0-15.5); LYMPH # 1.3 x10^3/uL (1.0-4.8); LYMPH % 34 % (24-48); MEAN CORPUSCULAR HEMOGLOBIN 30 pg (25-35); MEAN CORPUSCULAR HGB CONC 33 g/dL (31-37); MEAN CORPUSCULAR VOLUME 90 fL (79-100); MONO # 0.4 x10^3/uL (0.0-1.1); MONO % 10 % (0-9); NEUT # 2.2 x10^3uL (1.8-7.7); NEUT % 55 % (31-73); PLATELET COUNT 156 x10^3/uL (140-400); RED BLOOD COUNT 4.81 x10^6/uL (3.50-5.40); RED CELL DISTRIBUTION WIDTH 16.1 % (11.5-14.5)
[2019-08-26 12:57] LABS: ALBUMIN 3.7 g/dL (3.4-5.0); CALCIUM 8.7 mg/dL (8.5-10.1); CREATININE 0.7 mg/dL (0.6-1.0); GFR 120.6; POTASSIUM 4.1 mmol/L (3.5-5.1); TOTAL BILIRUBIN 0.5 mg/dL (0.2-1.0); TOTAL PROTEIN 7.3 g/dL (6.4-8.2)
[2019-08-26] MEDS ORDERED: IOHEXOL 300 MG/ML 75 ML VIAL. IV ONE (13:30)
--- NOTE | 2019-08-26 14:55 | RAD ---
CT ABD PELV W/ IV CONTRST ONLY Indication: Lower abdominal pain. Exposure: One or more of the following individualized dose reduction techniques were utilized for this examination: 1. Automated exposure control 2. Adjustment of the mA and/or kV according to patient size 3. Use of iterative reconstruction technique. Technique: Intravenous contrast was given. No oral contrast per request. Comparison: August 24, 2014. FINDINGS: Small pleural effusions are identified in lung bases as well as mild atelectasis. The upper dome of the right lobe of liver is not included in the [id number]. Visualized liver appears unremarkable spleen unremarkable. Spleen borderline enlarged measuring 12.2 cm length. Pancreas difficult to distinguish from adjacent unopacified bowel loops but no definite acute finding. No evidence of adrenal mass. Kidneys demonstrate symmetric enhancement without mass lesion or hydronephrosis. Tiny nonobstructive calculus in the upper pole the right kidney. No calcified gallstone. Aorta is nonaneurysmal. Mildly enlarged retroperitoneal aortocaval lymph nodes are identified as well as mildly enlarged mesenteric lymph nodes. These measure up to 1 cm in short axis. Overall these appear similar to the prior study. Mildly enlarged iliac lymph nodes are identified bilaterally measuring up to 12 mm in short axis. These appear roughly similar as prior. Mildly enlarged inguinal lymph nodes are identified. Right inguinal lymph node measures 12 mm diameter, slightly larger than prior study at which time it measured 9 mm. No significant small bowel distention. No evidence of acute colitis. The appendix appears within normal limits, and contains some gas within the lumen. Mild free pelvic fluid. Cystic lesion or lesions within the right adnexa. Largest of these measures 5.5 cm diameter, and 23 Hounsfield units, slightly greater than would be expected with a simple cyst. There is also mild irregular noncystic density within the inferior aspect of the larger lesion. There may be a several very small left adnexal cystic structures. Urinary bladder appears unremarkable. Vertebral body height and alignment appears stable as does a thoracic scoliosis with sclerotic density within the T8 vertebral body. IMPRESSION: 1. Small pleural effusions. 2. Mild pelvic free fluid. Lesions within the right adnexa, could represent complex/hemorrhagic cysts, versus cystic mass. Recommend pelvic ultrasound for further evaluation. 3. Mildly enlarged mesenteric, retroperitoneal, iliac and inguinal lymph nodes. For the most part this appears similar to the study of 2013 although some nodes may be slightly larger. Correlate for any clinical history or clinical signs to suggest neoplastic etiology, otherwise these could be of chronic reactive nature. 4. Tiny nonobstructive right renal calculus. Electronically signed by: José Miguel Ramirez MD (08/26/2019 2:52 PM) [id number]
--- NOTE | 2019-08-26 15:04 | PHYS DOC ---
Past History Past Medical History: Anxiety, Depression, Hypertension Past Surgical History: Other Additional Past Surgical Histo: lymph node removed right lung Smoking: Non-smoker Alcohol Use: None Drug Use: None Adult General Chief Complaint Chief Complaint: BACK PAIN OR INJURY [facility] HPI Patient is a 29-year-old female who presents with complaint of chronic lower back pain and an acute onset of lower abdominal pain that started a couple of days ago. Patient rates her pain to be a 9 out of 10. She denies any nausea, vomiting or diarrhea. She indicates that the pain in her lower abdomen as sharp and stabbing in nature. She states that the pain in her back is like a deep ache. She states the pain in her back is worsened with bending over. She states that nothing is improving her symptoms.[] Review of Systems Review of Systems Constitutional: Denies fever or chills [] Respiratory: Denies cough or shortness of breath [] Cardiovascular: No additional information not addressed in HPI [] GI: Complains of lower abdominal pain without vomiting or diarrhea [] : Denies dysuria or hematuria [] Musculoskeletal: Complains of lower back pain [] All other systems were reviewed and found to be within normal limits, except as documented in this note. Current Medications Current Medications Current Medications Medications (Trade) Dose Ordered Sig/Andrzej Start Time Stop Time Status Last Admin Dose Admin Fentanyl Citrate (Fentanyl 2ml Vial) 25 mcg PRN Q15MIN PRN 08/26/19 12:00 08/27/19 11:59 08/26/19 14:01 25 MCG Iohexol (Omnipaque 300 Mg/ml) 75 ml 1X ONCE 08/26/19 13:30 08/26/19 13:35 DC 08/26/19 13:47 75 ML Ondansetron HCl (Zofran) 4 mg 1X ONCE 08/26/19 12:00 08/26/19 12:05 DC 08/26/19 12:35 4 MG Sodium Chloride 1,000 ml @ 1,000 mls/hr Q1H 08/26/19 11:58 08/26/19 12:57 DC 08/26/19 12:34 1,000 MLS/HR Allergies Allergies Allergies Coded Allergies Type Severity Reaction Last Updated Verified Milk Containing Products Allergy Unknown 08/26/19 Yes lisinopril Allergy Unknown 08/26/19 No Physical Exam Physical Exam Constitutional: Well developed, well nourished, no acute distress, non-toxic appearance. [] HENT: Normocephalic, atraumatic, bilateral external ears normal, oropharynx moist, no oral exudates, nose normal. [] Eyes: PERRLA, EOMI, conjunctiva normal, no discharge. [] Neck: Normal range of motion, no tenderness, supple. [] Cardiovascular: Regular rate and rhythm[] Lungs & Thorax: Bilateral breath sounds clear to auscultation [] Abdomen: Bowel sounds normal, soft, with suprapubic and right sided adnexal tenderness. [] Skin: Warm, dry, no erythema, no rash. [] Back: There is tenderness to palpation in the bilateral lumbar paraspinal musc ulature. [] Extremities: No tenderness, no cyanosis, no clubbing, ROM intact. [] Neurologic: Alert and oriented X 3, no focal deficits noted. [] Current Patient Data Vital Signs Vital Signs Date Time Temp Pulse Resp B/P (MAP) Pulse Ox O2 Delivery O2 Flow Rate FiO2 08/26/19 14:03 62 16 157/112 (127) 100 Room Air 08/26/19 11:49 98.8 Lab Results Laboratory Tests Test 08/26/19 12:10 08/26/19 12:19 08/26/19 12:31 Urine Collection Type Void Urine Color Yellow Urine Clarity Cloudy Urine pH 8.0 Urine Specific [place] 1.015 Urine Protein Neg (NEG-TRACE) Urine Glucose (UA) Neg mg/dL (NEG) Urine Ketones (Stick) Neg mg/dL (NEG) Urine Blood Neg (NEG) Urine Nitrite Neg (NEG) Urine Bilirubin Neg (NEG) Urine Urobilinogen Dipstick 0.2 mg/dL (0.2 mg/dL) Urine Leukocyte Esterase Neg (NEG) Urine RBC Occ /HPF (0-2) Urine WBC 1-4 /HPF (0-4) Urine Squamous Epithelial Cells Many /LPF Urine Amorphous Sediment Present /HPF Urine Bacteria Few /HPF (0-FEW) Urine Mucus Slight /LPF POC Urine HCG, Qualitative hcg negative (Negative) White Blood Count 4.0 x10^3/uL (4.0-11.0) Red Blood Count 4.81 x10^6/uL (3.50-5.40) Hemoglobin 14.4 g/dL (12.0-15.5) Hematocrit 43.1 % (36.0-47.0) Mean Corpuscular Volume 90 fL (79-100) Mean Corpuscular Hemoglobin 30 pg (25-35) Mean Corpuscular Hemoglobin Concent 33 g/dL (31-37) Red Cell Distribution Width 16.1 % (11.5-14.5) H Platelet Count 156 x10^3/uL (140-400) Neutrophils (%) (Auto) 55 % (31-73) Lymphocytes (%) (Auto) 34 % (24-48) Monocytes (%) (Auto) 10 % (0-9) H Eosinophils (%) (Auto) 1 % (0-3) Basophils (%) (Auto) 1 % (0-3) Neutrophils # (Auto) 2.2 x10^3uL (1.8-7.7) Lymphocytes # (Auto) 1.3 x10^3/uL (1.0-4.8) Monocytes # (Auto) 0.4 x10^3/uL (0.0-1.1) Eosinophils # (Auto) 0.0 x10^3/uL (0.0-0.7) Basophils # (Auto) 0.0 x10^3/uL (0.0-0.2) Sodium Level 139 mmol/L (136-145) Potassium Level 4.1 mmol/L (3.5-5.1) Chloride Level 104 mmol/L (98-107) Carbon Dioxide Level 28 mmol/L (21-32) Anion Gap 7 (6-14) Blood Urea Nitrogen 8 mg/dL (7-20) Creatinine 0.7 mg/dL (0.6-1.0) Estimated GFR (Cockcroft-Gault) 120.6 BUN/Creatinine Ratio 11 (6-20) Glucose Level 79 mg/dL (70-99) Calcium Level 8.7 mg/dL (8.5-10.1) Total Bilirubin 0.5 mg/dL (0.2-1.0) Aspartate Amino Transferase (AST) 17 U/L (15-37) Alanine Aminotransferase (ALT) 19 U/L (14-59) Alkaline Phosphatase 66 U/L (46-116) Total Protein 7.3 g/dL (6.4-8.2) Albumin 3.7 g/dL (3.4-5.0) Albumin/Globulin Ratio 1.0 (1.0-1.7) Lipase 63 U/L (73-393) L EKG EKG [] Radiology/Procedures Radiology/Procedures [] Impressions: PROCEDURE: CT ABD PELV W/ IV CONTRST ONLY CT ABD PELV W/ IV CONTRST ONLY Indication: Lower abdominal pain. Exposure: One or more of the following individualized dose reduction techniques were utilized for this examination: 1. Automated exposure control 2. Adjustment of the mA and/or kV according to patient size 3. Use of iterative reconstruction technique. Technique: Intravenous contrast was given. No oral contrast per request. Comparison: August 24, 2014. FINDINGS: Small pleural effusions are identified in lung bases as well as mild atelectasis. The upper dome of the right lobe of liver is not included in the [id number]. Visualized liver appears unremarkable spleen unremarkable. Spleen borderline enlarged measuring 12.2 cm length. Pancreas difficult to distinguish from adjacent unopacified bowel loops but no definite acute finding. No evidence of adrenal mass. Kidneys demonstrate symmetric enhancement without mass lesion or hydronephrosis. Tiny nonobstructive calculus in the upper pole the right kidney. No calcified gallstone. Aorta is nonaneurysmal. Mildly enlarged retroperitoneal aortocaval lymph nodes are identified as well as mildly enlarged mesenteric lymph nodes. These measure up to 1 cm in short axis. Overall these appear similar to the prior study. Mildly enlarged iliac lymph nodes are identified bilaterally measuring up to 12 mm in short axis. These appear roughly similar as prior. Mildly enlarged inguinal lymph nodes are identified. Right inguinal lymph node measures 12 mm diameter, slightly larger than prior study at which time it measured 9 mm. No significant small bowel distention. No evidence of acute colitis. The appendix appears within normal limits, and contains some gas within the lumen. Mild free pelvic fluid. Cystic lesion or lesions within the right adnexa. Largest of these measures 5.5 cm diameter, and 23 Hounsfield units, slightly greater than would be expected with a simple cyst. There is also mild irregular noncystic density within the inferior aspect of the larger lesion. There may be a several very small left adnexal cystic structures. Urinary bladder appears unremarkable. Vertebral body height and alignment appears stable as does a thoracic scoliosis with sclerotic density within the T8 vertebral body. IMPRESSION: 1. Small pleural effusions. 2. Mild pelvic free fluid. Lesions within the right adnexa, could represent complex/hemorrhagic cysts, versus cystic mass. Recommend pelvic ultrasound for further evaluation. 3. Mildly enlarged mesenteric, retroperitoneal, iliac and inguinal lymph nodes. For the most part this appears similar to the study of 2014 although some nodes may be slightly larger. Correlate for any clinical history or clinical signs to suggest neoplastic etiology, otherwise these could be of chronic reactive nature. 4. Tiny nonobstructive right renal calculus. Electronically signed by: José Miguel Ramirez MD (08/26/2019 2:52 PM) [facility] DICTATED AND SIGNED BY: JOSÉ MIGUEL RAMIREZ MD DATE: 08/26/19 1453 CC: KAUSHAL BOWER Jr. DO; ALBERTO COLON ~ PROCEDURE: PELVIS COMPLETE Exam: Ultrasound pelvis Indication: Low back pain, pelvic pain for one month Technique: Real-time grayscale and color Doppler images of the pelvis were obtained by the department chairman & ceo. Transabdominal images only. Comparisons: CT same day FINDINGS: Uterus measures 7.6 x 3.6 x 4.2 cm. Endometrium measures 7 mm in thickness. Right ovary measures 9.1 x 4.7 x 7.0 cm. Blood flow is noted within the right ovary. Within the right ovary there is a 5.1 x 4.9 cm complex cystic lesion. Left ovary measures 3.3 x 2.0 x 2.7 cm. Blood flow is noted within the left ovary. No free fluid. IMPRESSION: 1. Within the right ovary there is a 5.1 x 4.9 cm complex cystic lesion, favored represent hemorrhagic cyst based off of sonographic appearance. Follow-up sonogram in 6-12 weeks is recommended. 2. Otherwise, normal sonographic appearance of the uterus and ovaries. Electronically signed by: Hector Barnes MD (08/26/2019 4:11 PM) [facility] Course & Med Decision Making Course & Med Decision Making Pertinent Labs and Imaging studies reviewed. (See chart for details) [] Dragon Disclaimer Dragon Disclaimer This electronic medical record was generated, in whole or in part, using a voice recognition dictation system. Departure Departure: Impression: Primary Impression: Chronic back pain Additional Impression: Hemorrhagic cyst of right ovary Disposition: 01 HOME, SELF-CARE Condition: STABLE Referrals: ALBERTO COLON (PCP) Patient Instructions: Chronic Back Pain, Ovarian Cyst Scripts Ondansetron Hcl (ZOFRAN) 4 Mg Tablet 4 MG PO Q6HRS PRN for NAUSEA, #12 TAB Prov: KAUSHAL BOWER Jr. DO 08/26/19 Hydrocodone Bit/Acetaminophen (NORCO 7.5-325 TABLET) 1 Each Tablet 1 TAB PO PRN Q6HRS PRN for PAIN, #12 TAB 0 Refills Prov: KAUSHAL BOWER Jr. DO 08/26/19 Problem Qualifiers Primary Impression: Chronic back pain Back pain location: low back pain Back pain laterality: unspecified Sciatica presence: without sciatica Qualified Codes: M54.5 - Low back p ain; G89.29 - Other chronic pain KAUSHAL BOWER Jr. DO Aug 26, 2019 15:04
--- NOTE | 2019-08-26 16:14 | RAD ---
Exam: Ultrasound pelvis Indication: Low back pain, pelvic pain for one month Technique: Real-time grayscale and color Doppler images of the pelvis were obtained by the department early childhood. Transabdominal images only. Comparisons: CT same day FINDINGS: Uterus measures 7.6 x 3.6 x 4.2 cm. Endometrium measures 7 mm in thickness. Right ovary measures 9.1 x 4.7 x 7.0 cm. Blood flow is noted within the right ovary. Within the right ovary there is a 5.1 x 4.9 cm complex cystic lesion. Left ovary measures 3.3 x 2.0 x 2.7 cm. Blood flow is noted within the left ovary. No free fluid. IMPRESSION: 1. Within the right ovary there is a 5.1 x 4.9 cm complex cystic lesion, favored represent hemorrhagic cyst based off of sonographic appearance. Follow-up sonogram in 6-12 weeks is recommended. 2. Otherwise, normal sonographic appearance of the uterus and ovaries. Electronically signed by: Hector Barnes MD (08/26/2019 4:11 PM) [facility]
[2019-08-26] MEDS ORDERED: HYDR-3166 PO (16:43)
[2019-08-26] MEDS ORDERED: ONDA4TAB7 PO (16:43)
[2019-08-26 17:15] VITALS: BP 174/109
== END 2019-08-26 17:15 | disposition home or self-care (01) ==
LOC: ER 11:20
DX: N83.201 Unspecified ovarian cyst, right side (principal); G89.29 Other chronic pain; I10 Essential (primary) hypertension; Z91.018 Allergy to other foods; Z88.8 Allergy status to other drugs, medicaments and biological substances
CPT/HCPCS: 36415; 74177; 76856; 80053; 81001; 81025; 83690; 85025; 96374; 96375; 99285; J2405; J3010; Q9967; J7030

== ENCOUNTER 2019-08-28 21:29 | Emergency (ER) | payer MEDICAID ==
[~2019-08-28] VITALS: Ht 160 cm; Wt 79.5 kg
[~2019-08-28 21:29] MED LIST changes: +HYDR-3166 PO; +ONDA4TAB7 PO
[2019-08-28 21:56] VITALS: BP 160/105
--- NOTE | 2019-08-28 21:57 | PHYS DOC ---
Past History Past Medical History: Anxiety, Depression, Hypertension Additional Past Medical Histor: Castleman's disease Past Surgical History: Other Additional Past Surgical Histo: lymph node removed right lung Smoking: Non-smoker Alcohol Use: None Drug Use: None Adult General Chief Complaint Chief Complaint: ABDOMINAL PAIN HPI HPI Patient is a 29-year-old female who presents to the emergency department for evaluation. She states the past month she has been having right-sided back and pelvic pain, on and off, which has gradually been worsening. She was seen in the emergency department here 2 days ago, and had a CT scan and a pelvic ultrasound, reports of which have been reviewed, as have the ER records. She states that the pain got worse over the past 24 hours, and is sharp, which is what caused her to come to the emergency department. She has not had any vaginal discharge, dysuria, she does admit to having some nausea or vomiting. There are no alleviating or exacerbating factors to her symptoms. Patient states she was prescribed #12 hydrocodone pills during her last ER visit, which have not really been managing her pain very well. Review of Systems Review of Systems Constitutional: Denies fever or chills [] Eyes: Denies change in visual acuity, redness, or eye pain [] HENT: Denies nasal congestion or sore throat [] Respiratory: Denies cough or shortness of breath [] Cardiovascular: The patient denies any shortness of breath, chest pain, palpitations, or orthopnea [] GI: No additional information not addressed in HPI[] : Denies dysuria or hematuria [] Musculoskeletal: Denies back pain or joint pain, other than as noted in the history of present illness [] Integument: Denies rash or skin lesions [] Neurologic: Denies headache, focal weakness or sensory changes [] Endocrine: Denies polyuria or polydipsia [] All other systems were reviewed and found to be within normal limits, except as documented in this note. Allergies Allergies Allergies Coded Allergies Type Severity Reaction Last Updated Verified Milk Containing Products Allergy Unknown 08/26/19 Yes lisinopril Allergy Unknown 08/26/19 No Physical Exam Physical Exam PHYSICAL EXAM: CONSTITUTIONAL: Well developed, well nourished HEAD: normocephalic, atraumatic EENT: PERRL, EOMI. Conjunctivae normal color, sclerae non-icteric; moist mucous membranes. NECK: Supple, non-tender; no meningismus. LUNGS: Lungs CTA, breathing even and unlabored. Normal air movement. HEART: Regular rate and rhythm, no murmur CHEST: No deformity; non-tender ABDOMEN: The abdomen is soft, there is tenderness to palpation diffusely in the right mid and lower abdomen, just superior to the pelvic brim without any definite pelvic tenderness, without rebound or guarding. The remainder the abdomen is soft and non-tender, no masses or bruits. EXTREM: Normal ROM; no deformity, no calf tenderness. Normal pulses palpable in all extremities. There is no pedal edema. SKIN: No rash; no diaphoresis NEURO: Alert; normal speech and cognition; CN's grossly intact; strength grossly intact without focal deficit. BACK: No CVA TTP. PELVIC EXAM: Normal external genitalia. There is a small amount of thin white frothy vaginal discharge, the cervix otherwise appears normal. There is no significant cervical motion tenderness. There is tenderness to palpation in the right adnexa with there is a slight sensation of a mass present, the patient's body habitus does limit the exam somewhat. Exam was performed in the presence of ER nurse, Amanda. Current Patient Data Lab Results Laboratory Tests Test 08/28/19 21:36 08/28/19 22:00 Urine Collection Type Unknown Urine Color Straw Urine Clarity Hazy Urine pH 6.5 Urine Specific [place] 1.020 Urine Protein Neg Urine Glucose (UA) Neg mg/dL Urine Ketones (Stick) Neg mg/dL Urine Blood Trace Urine Nitrite Neg Urine Bilirubin Neg Urine Urobilinogen Dipstick 0.2 mg/dL Urine Leukocyte Esterase Small Urine RBC Occ /HPF Urine WBC 1-4 /HPF Urine Squamous Epithelial Cells Mod /LPF Urine Bacteria Many /HPF Urine Test Negative Current Medications Medications (Trade) Dose Ordered Sig/Andrzej Route PRN Reason Start Time Stop Time Status Last Admin Dose Admin Oxycodone/ Acetaminophen (Percocet 5/325) 1 tab 1X ONCE PO 08/28/19 22:15 08/28/19 22:16 DC 08/28/19 22:10 WET PREP Final YEAST NONE SEEN TRICHOMONAS NONE SEEN CLUE CELLS CLUE CELLS PRESENT ALTERED SHAQUILLE ALTERED SHAQUILLE PRESENT SUGGESTIVE OF BACTERIAL VAGINOSIS WBCS FEW RBCS MODERATE SQUAMOUS EPS MODERATE EKG EKG [] Radiology/Procedures Radiology/Procedures [] Course & Med Decision Making Course & Med Decision Making Pertinent Labs and Imaging studies reviewed. (See chart for details) []10:35 AM: The patient's condition remains stable. Awaiting wet prep results. I discussed the possibility of repeating an ultrasound for her at this ER visit, we discussed the differential diagnosis to include ovarian torsion although the clinical suspicion that this is present is very low, and thus the yield of ultrasound was felt to be low. After discussing this the patient and I both agreed that doing another ultrasound 2 days after her initial ultrasound was not warranted at this time. This seems to have been ongoing for quite some time with the patient and I discussed importance of close gynecological follow-up, and return precautions were discussed in detail. She will be given additional pain medication, and possible antibiotics pending the wet prep result which will be reviewed when available. Dragon Disclaimer Dragon Disclaimer This electronic medical record was generated, in whole or in part, using a voice recognition dictation system. Departure Departure: Impression: Primary Impression: Pelvic pain in female Additional Impression: Bacterial vaginosis Disposition: HOME, SELF-CARE Condition: STABLE Referrals: ALBERTO COLON (PCP) Patient Instructions: Bacterial Vaginosis, Ovarian Cyst, Pelvic Pain, Female Additional Instructions: Follow-up with a special client bus driver is important for further diagnostic evaluation and treatment of your condition. Please call Dr. Vigil, at [phone] tomorrow m ornivan to schedule follow-up appointment. Scripts Oxycodone Hcl/Acetaminophen (PERCOCET 5-325 MG TABLET ) 1 Each Tablet 1 TAB PO Q6HRS PRN for PAIN MDD 2 Tablet(s), #15 TAB 0 Refills Prov: BENJA ENCINAS MD 08/28/19 Metronidazole (FLAGYL) 500 Mg Tablet 1 TAB PO BID for -, #14 TAB Prov: BENJA ENCINAS MD 08/28/19 Problem Qualifiers BENJA ENCINAS MD Aug 28, 2019 21:57
[2019-08-28 22:12] LABS: BILIRUBIN,URINE NEG (NEG); CLARITY,URINE HAZY; COLOR,URINE STRAW; GLUCOSE,URINE NEG (NEG)
[2019-08-28 22:13] LABS: BACTERIA,URINE MANY /HPF (0-FEW); NITRITE,URINE NEG (NEG); RBC,URINE OCC /HPF (0-2); SQUAMOUS EPITHELIAL CELL,UR MOD /LPF; UROBILINOGEN,URINE 0.2 mg/dL (0.2 mg/dL)
[2019-08-28 22:15] LABS: U PREG PATIENT NEGATIVE (NEG)
[2019-08-28] MEDS ORDERED: oxyCODONE/APAP 5/325 1 TAB TABLET PO ONE (22:15)
[2019-08-28] MEDS ORDERED: METR500T PO (22:40)
[2019-08-28] MEDS ORDERED: OXYC1TAB15 PO (22:40)
[2019-09-01 16:07] LABS: CHLAMYDIA PROBE Negative (Negative)
== END 2019-08-28 22:45 | disposition home or self-care (01) ==
LOC: ER 21:29
DX: N76.0 Acute vaginitis (principal); B96.89 Other specified bacterial agents as the cause of diseases classified elsewhere; I10 Essential (primary) hypertension; Z88.8 Allergy status to other drugs, medicaments and biological substances; Z91.011 Allergy to milk products
CPT/HCPCS: 36415; 81001; 81025; 87086; 87491; 87591; 99284; Q0111

== ENCOUNTER 2019-09-07 21:18 | Emergency (ER) | payer MEDICAID ==
[~2019-09-07] VITALS: Ht 160 cm; Wt 104.0 kg
[~2019-09-07 21:18] MED LIST changes: +METR500T PO; +OXYC1TAB15 PO
--- NOTE | 2019-09-07 21:23 | ED.ADGEN ---
Past History Past Medical History: Anxiety, Depression, Hypertension, Ovarian Cyst Additional Past Medical Histor: Castleman's disease Past Surgical History: Other Additional Past Surgical Histo: lymph node removed right lung Smoking: Non-smoker Alcohol Use: None Drug Use: None, Marijuana Adult General Chief Complaint Chief Complaint ".. I know I got an Ovarian cyst.. I been follow with Dr. Vigil.. he says I need surgery.. and we are to schedule .. it... but my pain got a lot worse tonight...".." I was to see him lst thing this coming morning.. .but my pain is so much worse.." HPI HPI Patient is a 29 year old female who presents with above hx and complaints severe diffuse burning abdomen pain. Some localization to Rt. at site of prior diagnosed ovarian cyst. Pt. rate her pain as 9-10/10. Nothing makes the pain better. Pt. denies and trauma. No vaginal discharge. No history of STDs. 4 -5 lifetime sexual partners. Did have a full Sunday meal at 1400 hrs.. The patient states her pain became quite severe acutely tonight. Patient has had previous CT and ultrasound and has planned surgery this coming week or 2 for her complex ovarian cysts. 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 Patient denies any history of immunosuppression. Denies travel or specific ill contacts. Review of Systems Review of Systems Constitutional: Denies fever or chills [] Eyes: Denies change in visual acuity, redness, or eye pain [] HENT: Denies nasal congestion or sore throat [] Respiratory: Denies cough or shortness of breath [] Cardiovascular: No additional information not addressed in HPI [] GI:Complaints of severe abdominal pain, nausea,. Denies vomiting, bloody stools or diarrhea [] : Denies dysuria or hematuria [] Musculoskeletal: Denies back pain or joint pain [] Integument: Denies rash or skin lesions [] Neurologic: Denies headache, focal weakness or sensory changes [] Endocrine: Denies polyuria or polydipsia [] All other systems were reviewed and found to be within normal limits, except as documented in this note. Family History Family History Noncontributory Current Medications Current Medications Current Medications Medications (Trade) Dose Ordered Sig/Andrzej Start Time Stop Time Status Last Admin Dose Admin Famotidine (Pepcid Vial) 20 mg 1X ONCE 09/07/19 22:30 09/07/19 22:31 DC 09/07/19 22:28 20 MG Ketorolac Tromethamine (Toradol 30mg Vial) 30 mg 1X ONCE 09/07/19 22:00 09/07/19 22:27 DC 09/07/19 22:27 30 MG Lactated Ringer's 1,000 ml @ 1,000 mls/hr Q1H 09/07/19 22:15 09/07/19 23:14 DC 09/07/19 23:09 1,000 MLS/HR Lidocaine HCl (Xylocaine 2% Topical 5gm Tube) 5 gloria STK-MED ONCE 09/08/19 00:58 09/08/19 00:58 DC Morphine Sulfate (Morphine 10mg Syringe) 10 mg 1X ONCE 09/08/19 00:30 09/08/19 00:32 DC 09/08/19 01:06 10 MG Ondansetron HCl (Zofran) 8 mg 1X ONCE 09/07/19 22:30 09/07/19 22:31 DC 09/07/19 22:28 8 MG Allergies Allergies Allergies Coded Allergies Type Severity Reaction Last Updated Verified Milk Containing Products Allergy Unknown 08/26/19 Yes lisinopril Allergy Unknown 08/26/19 No Physical Exam Physical Exam Constitutional: in acute distress, non-toxic appearance. [] HENT: Normocephalic, atraumatic, bilateral external ears normal, oropharynx moist, no oral exudates, nose normal. [] Eyes: PERRLA, EOMI, conjunctiva normal, no discharge. [] Neck: Normal range of motion, no tenderness, supple, no stridor. [] Cardiovascular:Heart rate regular rhythm, no murmur [] Lungs & Thorax: Bilateral breath sounds equal at apexes with few scattered wheeze on auscultation [] Old surgery scar. Abdomen: Bowel sounds decreased, soft, diffuse tenderness, no masses, no pulsatile masses. [] Some localization to Rt on rebound. Skin: Warm, dry, no erythema, no rash. [] Back: No tenderness, Rt. CVA tenderness. [] Extremities: No tenderness, no cyanosis, no clubbing, ROM intact, no edema. [] Mild psoas on Rt. Neurologic: Alert and oriented X 3, normal motor function, normal sensory function, no focal deficits noted. [] Psychologic: Affect anxious, judgement normal, mood normal. [] Current Patient Data Vital Signs Vital Signs Date Time Temp Pulse Resp B/P (MAP) Pulse Ox O2 Delivery O2 Flow Rate FiO2 09/08/19 01:06 16 96 09/07/19 22:39 98.8 103 Room Air Lab Results Laboratory Tests Test 09/07/19 22:05 09/07/19 22:15 09/07/19 23:09 Urine Collection Type Unknown Urine Color Yellow Urine Clarity Hazy Urine pH 7.0 Urine Specific [place] 1.015 Urine Protein Neg (NEG-TRACE) Urine Glucose (UA) Neg mg/dL (NEG) Urine Ketones (Stick) Neg mg/dL (NEG) Urine Blood Neg (NEG) Urine Nitrite Neg (NEG) Urine Bilirubin Neg (NEG) Urine Urobilinogen Dipstick 0.2 mg/dL (0.2 mg/dL) Urine Leukocyte Esterase Small (NEG) Urine RBC Occ /HPF (0-2) Urine WBC 1-4 /HPF (0-4) Urine Squamous Epithelial Cells Many /LPF Urine Bacteria 0 /HPF (0-FEW) Urine Opiates Screen Neg (NEG) Urine Methadone Screen Neg (NEG) Urine Barbiturates Neg (NEG) Urine Phencyclidine Screen Neg (NEG) Urine Amphetamine/Methamphetamine Neg (NEG) Urine Benzodiazepines Screen Neg (NEG) Urine Cocaine Screen Neg (NEG) Urine Cannabinoids Screen Pos (NEG) Urine Ethyl Alcohol Neg (NEG) White Blood Count 4.8 x10^3/uL (4.0-11.0) Red Blood Count 4.38 x10^6/uL (3.50-5.40) Hemoglobin 13.4 g/dL (12.0-15.5) Hematocrit 39.7 % (36.0-47.0) Mean Corpuscular Volume 91 fL (79-100) Mean Corpuscular Hemoglobin 31 pg (25-35) Mean Corpuscular Hemoglobin Concent 34 g/dL (31-37) Red Cell Distribution Width 15.7 % (11.5-14.5) H Platelet Count 146 x10^3/uL (140-400) Neutrophils (%) (Auto) 58 % (31-73) Lymphocytes (%) (Auto) 32 % (24-48) Monocytes (%) (Auto) 8 % (0-9) Eosinophils (%) (Auto) 1 % (0-3) Basophils (%) (Auto) 1 % (0-3) Neutrophils # (Auto) 2.8 x10^3uL (1.8-7.7) Lymphocytes # (Auto) 1.5 x10^3/uL (1.0-4.8) Monocytes # (Auto) 0.4 x10^3/uL (0.0-1.1) Eosinophils # (Auto) 0.1 x10^3/uL (0.0-0.7) Basophils # (Auto) 0.0 x10^3/uL (0.0-0.2) Prothrombin Time 10.2 SEC (9.4-11.4) Prothrombin Time INR 1.0 (0.9-1.1) Activated Partial Thromboplast Time 23 SEC (23-33) Sodium Level 141 mmol/L (136-145) Potassium Level 3.6 mmol/L (3.5-5.1) Chloride Level 106 mmol/L (98-107) Carbon Dioxide Level 28 mmol/L (21-32) Anion Gap 7 (6-14) Blood Urea Nitrogen 13 mg/dL (7-20) Creatinine 0.8 mg/dL (0.6-1.0) Estimated GFR (Cockcroft-Gault) 103.3 Glucose Level 87 mg/dL (70-99) Calcium Level 8.0 mg/dL (8.5-10.1) L Total Bilirubin 0.3 mg/dL (0.2-1.0) Direct Bilirubin 0.1 mg/dL (0.0-0.2) Aspartate Amino Transferase (AST) 18 U/L (15-37) Alanine Aminotransferase (ALT) 27 U/L (14-59) Alkaline Phosphatase 62 U/L (46-116) Total Protein 6.8 g/dL (6.4-8.2) Albumin 3.4 g/dL (3.4-5.0) Amylase Level 56 U/L (25-115) Lipase 71 U/L (73-393) L POC Urine HCG, Qualitative hcg negative (Negative) EKG EKG My interpretation EKG shows a sinus rhythm at 93 bpm. No findings acute STEMI of contralateral changes.[] Radiology/Procedures Radiology/Procedures [][address], [place], [place] [id number] IMAGING REPORT Signed PATIENT: SYDE OAKLEY ACCOUNT: [id number] : 1990 LOCATION: ER AGE: 29 SEX: F EXAM STATUS: REG ER ORD. PHYSICIAN: TRAM HOWARD MD REASON: Hx. of large Ovarian cyst.--Rt. PROCEDURE: TRANSVAGINAL Exam: Ultrasound pelvis Indication: Ovarian cyst Technique: Real-time grayscale and color Doppler images of the pelvis were obtained by the department surveillance inspector. Comparisons: 06/26/2019 FINDINGS: Uterus measures 7.7 x 4.7 x 3.5 cm. Endometrium measures 6 mm in thickness. Right ovary measures 4.2 x 2.8 x 2.5 cm. Left ovary measures 2.6 x 2.1 x 2.0 cm. Flow is noted within the ovaries bilaterally. IMPRESSION: 1. Previously seen hemorrhagic cyst within the right ovary has resolved. 2. Normal sonographic appearance of the uterus and ovaries. Electronically signed by: Hector Moreland MD (09/07/2019 11:15 PM) [facility] DICTATED AND SIGNED BY: HECTOR MORELAND MD DATE: 09/07/19 0911 CC: TRAM HOWARD MD; ALBERTO COLON ~ Course & Med Decision Making Course & Med Decision Making Pertinent Labs and Imaging studies reviewed. (See chart for details) Discussed presentation, testing and tx. plan with Dr. Alberto.. will accept pt. at [facility]. Consult with Dr. Donaldson. [] Final Impression Final Impression 1. Severe Abdomen Pain 2. Hx. of ovarian cysts Dragon Disclaimer Dragon Disclaimer This electronic medical record was generated, in whole or in part, using a voice recognition dictation system. TRAM HOWARD MD Sep 07, 2019 21:22
[2019-09-07] MEDS ORDERED: KETOROLAC 30 MG/ML VIAL. IVP ONE (22:00)
--- NOTE | 2019-09-07 22:13 | EKG ---
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
[2019-09-07] MEDS ORDERED: IV RINGERS SOLUTION,LACTATED 1,000 ML IV SCH (22:15)
[2019-09-07] MEDS ORDERED: FAMOTIDINE 20 MG/2 ML VIAL IVP ONE (22:30)
[2019-09-07] MEDS ORDERED: ONDANSETRON PF 4 MG/2 ML VIAL. IVP ONE (22:30)
[2019-09-07 22:33] LABS: BASO % 1 % (0-3); EOS # 0.1 x10^3/uL (0.0-0.7); EOS % 1 % (0-3); HEMATOCRIT 39.7 % (36.0-47.0); HEMOGLOBIN 13.4 g/dL (12.0-15.5); LYMPH # 1.5 x10^3/uL (1.0-4.8); LYMPH % 32 % (24-48); MEAN CORPUSCULAR HEMOGLOBIN 31 pg (25-35); MEAN CORPUSCULAR HGB CONC 34 g/dL (31-37); MEAN CORPUSCULAR VOLUME 91 fL (79-100); MONO # 0.4 x10^3/uL (0.0-1.1); MONO % 8 % (0-9); NEUT # 2.8 x10^3uL (1.8-7.7); NEUT % 58 % (31-73); PLATELET COUNT 146 x10^3/uL (140-400); RED BLOOD COUNT 4.38 x10^6/uL (3.50-5.40); RED CELL DISTRIBUTION WIDTH 15.7 % (11.5-14.5); WHITE BLOOD COUNT 4.8 x10^3/uL (4.0-11.0)
[2019-09-07 22:39] VITALS: BP 150/117
[2019-09-07 22:41] LABS: BACTERIA,URINE 0 /HPF (0-FEW); BILIRUBIN,URINE NEG (NEG); CLARITY,URINE HAZY; COLOR,URINE YELLOW; GLUCOSE,URINE NEG (NEG); NITRITE,URINE NEG (NEG); RBC,URINE OCC /HPF (0-2); SQUAMOUS EPITHELIAL CELL,UR MANY /LPF; UROBILINOGEN,URINE 0.2 mg/dL (0.2 mg/dL)
[2019-09-07 22:42] LABS: BARBITURATES NEG (NEG); BENZODIAZEPINES NEG (NEG); CANNABINOIDS POS (NEG); COCAINE NEG (NEG); METHADONE NEG (NEG); OPIATES NEG (NEG); PHENCYCLIDINE NEG (NEG)
[2019-09-07 22:43] LABS: AMPHETAMINE/METHAMPHETAMINE NEG (NEG)
[2019-09-07 22:45] LABS: ALBUMIN 3.4 g/dL (3.4-5.0); CREATININE 0.8 mg/dL (0.6-1.0); DIRECT BILIRUBIN 0.1 mg/dL (0.0-0.2); GFR 103.3; POTASSIUM 3.6 mmol/L (3.5-5.1); TOTAL BILIRUBIN 0.3 mg/dL (0.2-1.0); TOTAL PROTEIN 6.8 g/dL (6.4-8.2)
--- NOTE | 2019-09-07 23:00 | RAD ---
Three-view acute abdominal series. HISTORY: Pain, history right ovarian cyst 3 views were taken for an acute abdominal series. Lungs are clear. Heart is normal in size. There is no pleural effusion. There is mild scoliosis. There is no free air under the diaphragms. There are no abnormal air-fluid levels. There is a calcification on the right side of the abdomen possibly a renal or ureteral calculus versus a gallstone. Bowel pattern is normal. There are phleboliths on the left side of the pelvis. IMPRESSION: 1. Rounded gallstone versus calculus at the renal pelvis or proximal ureter. Electronically signed by: Toan Sparrow MD (09/07/2019 10:56 PM) [facility]
--- NOTE | 2019-09-07 23:18 | RAD ---
Exam: Ultrasound pelvis Indication: Ovarian cyst Technique: Real-time grayscale and color Doppler images of the pelvis were obtained by the department peoplesoft analyst. Comparisons: 06/26/2019 FINDINGS: Uterus measures 7.7 x 4.7 x 3.5 cm. Endometrium measures 6 mm in thickness. Right ovary measures 4.2 x 2.8 x 2.5 cm. Left ovary measures 2.6 x 2.1 x 2.0 cm. Flow is noted within the ovaries bilaterally. IMPRESSION: 1. Previously seen hemorrhagic cyst within the right ovary has resolved. 2. Normal sonographic appearance of the uterus and ovaries. Electronically signed by: Hector Barnes MD (09/07/2019 11:15 PM) [facility]
[2019-09-08] MEDS ORDERED: MORPHINE SULFATE 10 MG/ML SYRINGE. SQ ONE (00:30)
[2019-09-08] MEDS ORDERED: LIDOCAINE 2% TOPICAL JELLY 5GM TUBE. TP ONE (00:58)
== END 2019-09-08 01:25 | disposition short-term general hospital (02) ==
LOC: ER 21:18
DX: R10.84 Generalized abdominal pain (principal); R11.0 Nausea; I10 Essential (primary) hypertension; F41.9 Anxiety disorder, unspecified; F32.9 Major depressive disorder, single episode, unspecified; Z88.8 Allergy status to other drugs, medicaments and biological substances; Z91.011 Allergy to milk products
CPT/HCPCS: 36415; 74022; 76830; 80048; 80076; 80307; 81001; 81025; 82150; 83690; 85025; 85610; 85730; 87086; 93005; 96372; 96374; 96375; 99285; J1885; J2270; J2405; J3490; J7120

== ENCOUNTER 2019-10-03 23:30 | Emergency (ER) | payer MEDICAID ==
[~2019-10-03] VITALS: Ht 160 cm; Wt 105.5 kg
--- NOTE | 2019-10-03 23:34 | PHYS DOC ---
Past History Past Medical History: Anxiety, Depression, Hypertension, Ovarian Cyst Additional Past Medical Histor: Castleman's disease, Lymphoproliferateive disorder Past Surgical History: Oophorectomy, Other Additional Past Surgical Histo: lymph node removed right lung Past Surgical History Rt Ovary cyst and mass removed 09/09/18 Smoking: Non-smoker Alcohol Use: None Drug Use: None, Marijuana Adult General Chief Complaint Chief Complaint: ".. I had surgery on my Rt. side... for my ovrian and lymph node.. Dr. Vigil.. but now I am having problems on my Lt. side... and flank.. 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 flank and abdomen pain. Pt. has hx of Lymphoproliferative - Casteman syndrome. Pt. was seen by me on and was transfer to [facility] Dr. Vigil for surgery on 09/09 for Rt. Ovarian cyst and mass. Patient has had previous pulmonary surgery for a adenopathy mass at [facility] when she was a child. She rates her pain from 9-10/10 out of 10. Nothing makes the pain better. Patient been persistent throughout the day. Patient denies any trauma. Patient denies any specific ill contacts. Patient denies history history of immunosuppression. No recent travel or specific ill contacts. Patient has had 1 previous and one vaginal delivery. Hx 5 lifetime sexual partners. No history of trauma.. Denies bad food. Pt. did eat prior to arrival. Normally follows Dr. Waldron and Dr. Vigil. Review of Systems Review of Systems Constitutional: Denies fever or chills [] Eyes: Denies change in visual acuity, redness, or eye pain [] HENT: Denies nasal congestion or sore throat [] Respiratory: Denies cough or shortness of breath [] Cardiovascular: No additional information not addressed in HPI [] GI: Complaints of Lt flank abdominal pain,. Pt. denies nausea., vomiting, bloody stools or diarrhea [] : Denies dysuria or hematuria [] Musculoskeletal: Complaints of Lt flank back pain Integument: Denies rash or skin lesions [] Neurologic: Denies headache, focal weakness or sensory changes [] Endocrine: Denies polyuria or polydipsia [] All other systems were reviewed and found to be within normal limits, except as documented in this note. Family History Family History Noncontributory Current Medications Current Medications See nursing for home meds Allergies Allergies Allergies Coded Allergies Type Severity Reaction Last Updated Verified Milk Containing Products Allergy Unknown 08/26/19 Yes lisinopril Allergy Unknown 08/26/19 No Physical Exam Physical Exam Constitutional: Moderate acute distress, non-toxic appearance. [] HENT: Normocephalic, atraumatic, bilateral external ears normal, oropharynx moist, no oral exudates, nose normal. [] Eyes: PERRLA, EOMI, conjunctiva normal, no discharge. [] Neck: Normal range of motion, no tenderness, supple, no stridor. [] Cardiovascular:Heart rate regular rhythm, no murmur [] Lungs & Thorax: Bilateral breath sounds clear to auscultation [. Patient has]old surgery scar. Abdomen: Bowel sounds normal, soft, left upper quadrant tenderness, no masses, no pulsatile masses. [] Old surgery scars. Mild distention. Rebound to left upper quadrant. Patient declines rectal pelvic exam this time. Skin: Warm, dry, no erythema, no rash. [] Back: No tenderness, left CVA CVA tenderness. [] Extremities: No tenderness, no cyanosis, no clubbing, ROM intact, no edema. [] No psoas sign. Neurologic: Alert and oriented X 3, normal motor function, normal sensory function, no focal deficits noted. [] Psychologic: Affect flat, judgement normal, mood normal. [] EKG EKG [] Radiology/Procedures Radiology/Procedures [][address] [address] IMAGING REPORT Signed PATIENT: SYED OAKLEY ACCOUNT: [id number] : 1990 LOCATION: ER AGE: 29 SEX: F EXAM STATUS: REG ER ORD. PHYSICIAN: TRAM HOWARD MD REASON: Omni 300,75ml IV.Omni 240,30ml PO.Lt flank,low abd pain PROCEDURE: CT ABD PELV W/ORAL&IV CONTRAST INDICATION: Abdomen pain COMPARISON: August 26, 2019 TECHNIQUE: Axial CT images obtained through the abdomen and pelvis with contrast. One or more of the following individualized dose reduction techniques were utilized for this examination: 1. Automated exposure control; 2. Adjustment of the mA and/or kV according to patient size; 3. Use of iterative reconstruction technique. FINDINGS: Trace right pleural effusion. Abdominal aorta is not aneurysmal. No intrahepatic bile duct dilation. No peripancreatic fluid collection. Spleen unremarkable. No left-sided hydronephrosis. Urinary bladder is largely decompressed with minimal urine within. No right-sided hydronephrosis. Calcifications in left hemipelvis again seen and could be phleboliths. Tiny nonobstructive right renal stone. Scattered prominent lymph nodes are again seen. For example right external iliac region measuring 22 x 12 mm. The appendix does not appear inflamed. Previously identified cystic lesions of the right adnexa have improved when compared to prior. Small free fluid in the pelvis. There is a possible complex cystic lesion within the left adnexa with a hematocrit fluid level. Scattered sclerotic foci in the osseous structures. IMPRESSION: * No evidence of appendicitis. * Decrease in right adnexal cystic lesions compared to prior with a suspected lesion within the left adnexa now seen with a fluid hematocrit level. Could be from causes such as hemorrhagic cyst but if more accurate clarification is desired pelvic ultrasound could further evaluate. * Scattered sclerotic foci are again seen within the osseous structures. Could be related to bone island formation unless the patient has a history of neoplasm. This is more than typically seen. Electronically signed by: Divina Gardiner MD (10/04/2019 2:58 AM) [facility] DICTATED AND SIGNED BY: DIVINA GARDINER MD DATE: 10/04/19 0258 CC: TRAM HOWARD MD; ALBERTO COLON ~ Course & Med Decision Making Course & Med Decision Making Pertinent Labs and Imaging studies reviewed. (See chart for details) Patient's stay on clear fluid diet for the next 2 days. Must allow bowel rest. Patient push fluids. Patient follow-up primary care. Patient follow-up with [facility] Dr. Vigil. . Patient for marked pain may take Vicoprofen up 4 times a day. Patient may treat nausea with Zofran 8 mg up 4 times a day. Follow-up primary care. Follow-up OB. Return if any concerns. Impression: 1. Abdomen Pain 2. Left hemorrhagic cyst 3. Hx. of Lymphoproliferative Disorder- Castleman Dz 4. HTN [] Dragon Disclaimer Dragon Disclaimer This electronic medical record was generated, in whole or in part, using a voice recognition dictation system. Departure Departure: Disposition: 01 HOME/RESIDENCE PRIOR TO ADM Condition: STABLE Referrals: ALBERTO COLON (PCP) Scripts Hydrocodone/Ibuprofen (HYDROCODONE-IBUPROFEN 7.5-200 ) 1 Each Tablet 1 TAB PO PRN Q6HRS PRN for PAIN, #30 TAB 0 Refills Prov: TRAM HOWARD MD 10/04/19 Ondansetron Hcl (ZOFRAN) 8 Mg Tablet 8 MG PO QIDPRN PRN for NAUSEA/VOMITING, #30 BOTTLE Prov: TRAM HOWARD MD 10/04/19 Yuriy Disclaimer This chart was dictated in whole or in part using Voice Recognition software in a busy, high-work load, and often noisy Emergency Department environment. It may contain unintended and wholly unrecognized errors or omissions. Dragon Disclaimer This chart was dictated in whole or in part using Voice Recognition software in a busy, high-work load, and often noisy Emergency Department environment. It may contain unintended and wholly unrecognized errors or omissions. TRAM HOWARD MD Oct 03, 2019 23:34
[2019-10-03] MEDS ORDERED: IV RINGERS SOLUTION,LACTATED 1,000 ML IV SCH (23:55)
[2019-10-04] MEDS ORDERED: FAMOTIDINE 20 MG/2 ML VIAL IVP ONE
[2019-10-04] MEDS ORDERED: ONDANSETRON PF 4 MG/2 ML VIAL. IVP ONE
[2019-10-04] MEDS ORDERED: metoprolol (00:21)
[2019-10-04] MEDS ORDERED: MORPHINE SULFATE 10 MG/ML SYRINGE. SQ ONE ×2 (00:30→04:00)
[2019-10-04] MEDS ORDERED: KETOROLAC 30 MG/ML VIAL. IVP ONE (00:30)
[2019-10-04 00:44] LABS: BARBITURATES NEG (NEG); BASO % 1 % (0-3); BENZODIAZEPINES NEG (NEG); CANNABINOIDS NEG (NEG); COCAINE NEG (NEG); EOS # 0.1 x10^3/uL (0.0-0.7); EOS % 2 % (0-3); HEMATOCRIT 42.2 % (36.0-47.0); HEMOGLOBIN 14.3 g/dL (12.0-15.5); LYMPH % 42 % (24-48); MEAN CORPUSCULAR HEMOGLOBIN 31 pg (25-35); MEAN CORPUSCULAR HGB CONC 34 g/dL (31-37); MEAN CORPUSCULAR VOLUME 91 fL (79-100); METHADONE NEG (NEG); MONO # 0.4 x10^3/uL (0.0-1.1); MONO % 9 % (0-9); NEUT # 2.2 x10^3uL (1.8-7.7); NEUT % 47 % (31-73); OPIATES NEG (NEG); PHENCYCLIDINE NEG (NEG); PLATELET COUNT 163 x10^3/uL (140-400); RED BLOOD COUNT 4.65 x10^6/uL (3.50-5.40); RED CELL DISTRIBUTION WIDTH 14.2 % (11.5-14.5); WHITE BLOOD COUNT 4.7 x10^3/uL (4.0-11.0)
[2019-10-04 00:47] LABS: ALBUMIN 3.7 g/dL (3.4-5.0); CREATININE 1.2 mg/dL (0.6-1.0); DIRECT BILIRUBIN 0.1 mg/dL (0.0-0.2); GFR 64.7; POTASSIUM 3.5 mmol/L (3.5-5.1); TOTAL BILIRUBIN 0.3 mg/dL (0.2-1.0); TOTAL PROTEIN 7.1 g/dL (6.4-8.2)
[2019-10-04 00:50] LABS: AMPHETAMINE/METHAMPHETAMINE NEG (NEG)
[2019-10-04 00:51] LABS: BACTERIA,URINE FEW /HPF (0-FEW); BILIRUBIN,URINE NEG (NEG); CLARITY,URINE HAZY; COLOR,URINE YELLOW; GLUCOSE,URINE NEG (NEG); NITRITE,URINE NEG (NEG); RBC,URINE >40 /HPF (0-2); UROBILINOGEN,URINE 0.2 mg/dL (0.2 mg/dL); WBC,URINE 0 /HPF (0-4)
[2019-10-04 00:52] LABS: SQUAMOUS EPITHELIAL CELL,UR OCC /LPF
[2019-10-04] MEDS ORDERED: IOHEXOL 240 MG/ML 50ML VIAL. PO ONE (01:00)
[2019-10-04] MEDS ORDERED: CONTRAST GIVEN MC PRN (01:00)
[2019-10-04] MEDS ORDERED: IOHEXOL 300 MG/ML 75 ML VIAL. IV ONE (01:00)
--- NOTE | 2019-10-04 03:01 | RAD ---
INDICATION: Abdomen pain COMPARISON: August 26, 2019 TECHNIQUE: Axial CT images obtained through the abdomen and pelvis with contrast. One or more of the following individualized dose reduction techniques were utilized for this examination: 1. Automated exposure control; 2. Adjustment of the mA and/or kV according to patient size; 3. Use of iterative reconstruction technique. FINDINGS: Trace right pleural effusion. Abdominal aorta is not aneurysmal. No intrahepatic bile duct dilation. No peripancreatic fluid collection. Spleen unremarkable. No left-sided hydronephrosis. Urinary bladder is largely decompressed with minimal urine within. No right-sided hydronephrosis. Calcifications in left hemipelvis again seen and could be phleboliths. Tiny nonobstructive right renal stone. Scattered prominent lymph nodes are again seen. For example right external iliac region measuring 22 x 12 mm. The appendix does not appear inflamed. Previously identified cystic lesions of the right adnexa have improved when compared to prior. Small free fluid in the pelvis. There is a possible complex cystic lesion within the left adnexa with a hematocrit fluid level. Scattered sclerotic foci in the osseous structures. IMPRESSION: * No evidence of appendicitis. * Decrease in right adnexal cystic lesions compared to prior with a suspected lesion within the left adnexa now seen with a fluid hematocrit level. Could be from causes such as hemorrhagic cyst but if more accurate clarification is desired pelvic ultrasound could further evaluate. * Scattered sclerotic foci are again seen within the osseous structures. Could be related to bone island formation unless the patient has a history of neoplasm. This is more than typically seen. Electronically signed by: Steven Gardiner MD (10/04/2019 2:58 AM) [facility]
[2019-10-04] MEDS ORDERED: ONDA8TAB9 PO (04:01)
[2019-10-04] MEDS ORDERED: HYDR-1179 PO (04:01)
[2019-10-04] MEDS ORDERED: cloNIDine TTS-2 1 PATCH PATCH TD ONE ×2 (04:20→04:30)
[2019-10-04] MEDS ORDERED: cloNIDine HCL 0.1 MG TABLET ONE (04:21)
[2019-10-04] MEDS ORDERED: cloNIDine HCL 0.1 MG TABLET PO ONE (04:30)
[2019-10-04 05:15] VITALS: BP 163/100
--- NOTE | 2019-10-04 07:27 | RAD ---
INDICATION: Abdomen pain COMPARISON: September 07, 2019 IMPRESSION: 4 views of the chest and abdomen obtained. Hypoexpanded examination of the lungs. There is a linear high density structure at the right hilum again seen. Possible cause would include surgical clip if the patient has had a procedure to the region. No definite focal airspace consolidation. Cardiac silhouette is similar to prior. No intraperitoneal free air. Air scattered throughout the large and small bowel in a grossly nonobstructive pattern. Moderate stool within the colon. Mild scoliotic curvature of the spine Electronically signed by: Steven Gardiner MD (10/04/2019 7:24 AM) [facility]
== END 2019-10-04 05:20 | disposition home or self-care (01) ==
LOC: ER 23:30
DX: N83.202 Unspecified ovarian cyst, left side (principal); I10 Essential (primary) hypertension; Z90.721 Acquired absence of ovaries, unilateral; Z88.8 Allergy status to other drugs, medicaments and biological substances; Z91.011 Allergy to milk products
CPT/HCPCS: 36415; 74022; 74177; 80048; 80076; 80307; 81001; 81025; 83690; 85025; 85610; 85730; 96372; 96374; 96375; 99285; J1885; J2270; J2405; J3490; J7120; Q9967

== ENCOUNTER 2019-10-09 00:28 | Emergency (ER) | payer MEDICAID ==
[~2019-10-09] VITALS: Ht 160 cm; Wt 111.3 kg
[~2019-10-09 00:28] MED LIST changes: +HYDR-1179 PO; +ONDA8TAB9 PO; +metoprolol
[2019-10-09 01:44] LABS: BASO % 1 % (0-3); EOS # 0.1 x10^3/uL (0.0-0.7); EOS % 2 % (0-3); HEMATOCRIT 42.1 % (36.0-47.0); HEMOGLOBIN 14.3 g/dL (12.0-15.5); LYMPH # 1.7 x10^3/uL (1.0-4.8); LYMPH % 43 % (24-48); MEAN CORPUSCULAR HEMOGLOBIN 31 pg (25-35); MEAN CORPUSCULAR HGB CONC 34 g/dL (31-37); MEAN CORPUSCULAR VOLUME 91 fL (79-100); MONO # 0.4 x10^3/uL (0.0-1.1); MONO % 10 % (0-9); NEUT # 1.8 x10^3uL (1.8-7.7); NEUT % 45 % (31-73); PLATELET COUNT 153 x10^3/uL (140-400); RED BLOOD COUNT 4.62 x10^6/uL (3.50-5.40); RED CELL DISTRIBUTION WIDTH 14.2 % (11.5-14.5); WHITE BLOOD COUNT 3.9 x10^3/uL (4.0-11.0)
[2019-10-09] MEDS ORDERED: MORPHINE SULFATE 4 MG/ML DISP.SYRIN. IV ONE (01:45)
[2019-10-09] MEDS ORDERED: ONDANSETRON PF 4 MG/2 ML VIAL. IVP ONE (01:45)
[2019-10-09] MEDS ORDERED: IV NORMAL SALINE 1,000ML 1,000 ML IV ONE (01:45)
[2019-10-09 01:53] LABS: ALBUMIN 3.4 g/dL (3.4-5.0); CALCIUM 8.3 mg/dL (8.5-10.1); CREATININE 0.7 mg/dL (0.6-1.0); GFR 120.6; POTASSIUM 3.8 mmol/L (3.5-5.1); TOTAL BILIRUBIN 0.2 mg/dL (0.2-1.0); TOTAL PROTEIN 6.8 g/dL (6.4-8.2)
[2019-10-09 01:54] LABS: BACTERIA,URINE 0 /HPF (0-FEW); BILIRUBIN,URINE NEG (NEG); CLARITY,URINE CLEAR; COLOR,URINE YELLOW; GLUCOSE,URINE NEG (NEG); NITRITE,URINE NEG (NEG); RBC,URINE 0 /HPF (0-2); SQUAMOUS EPITHELIAL CELL,UR OCC /LPF; UROBILINOGEN,URINE 0.2 mg/dL (0.2 mg/dL); WBC,URINE OCC /HPF (0-4)
[2019-10-09 01:55] LABS: U PREG PATIENT NEGATIVE (NEG)
[2019-10-09] MEDS ORDERED: HYDR-3165 PO (02:37)
--- NOTE | 2019-10-09 02:37 | PHYS DOC ---
Past History Past Medical History: Anxiety, Depression, Hypertension, Ovarian Cyst, Other Additional Past Medical Histor: Castleman's disease, Lymphoproliferateive disorder Past Surgical History: Oophorectomy, Other Additional Past Surgical Histo: lymph node removed right lung; mass removed on rt by the rt ovary Smoking: Non-smoker Alcohol Use: None Drug Use: Marijuana Adult General Chief Complaint Chief Complaint: ABDOMINAL PAIN HPI HPI Patient is a 29 year old female who presents with complaint of lower abdominal and pelvic pain. Patient has been seen in the emergency department with similar complaints within the last 2 months of pelvic pain. On September 08, 2019, the patient was transferred to [facility] and underwent surgical removal of the right ovary and fallopian tube by Dr. Vigil. Patient had been previously diagnosed with an ovarian cyst prompting a scheduled laparoscopic surgery, but due to worsening pain symptoms she was accepted for transfer at that time. The right ovary and fallopian tube were removed which showed cystic lesions but no other significant findings. On October 03, 2019 the patient presented back to the emergency department with complaints of left sided pelvic pain. Patient underwent blood work and CT imaging. Patient was noted to have a left ovarian cyst that was not previously noted on her imaging. Patient was treated with oral pain medication and advised follow-up with Dr. Vigil as an outpatient. Patient states she has not followed up with Dr. Vigil, and states that her pain was well controlled until running out of her prescribed pain medicine from her previous emergency department visit. Notes the pain is sharp and in her pelvis with radiation towards her back. Denies any associated fever, vomiting, or loose stools and has had no abnormal vaginal bleeding. Due to return of pain she came to the emergency department for further evaluation. Review of Systems Review of Systems Constitutional: Denies fever or chills [] Eyes: Denies change in visual acuity, redness, or eye pain [] HENT: Denies nasal congestion or sore throat [] Respiratory: Denies cough or shortness of breath [] Cardiovascular: Denies chest pain or edema[] GI: Denies abdominal pain, nausea, vomiting, bloody stools or diarrhea [] : Pelvic pain, denies dysuria or vaginal bleeding[] Musculoskeletal: Denies back pain or joint pain [] Integument: Denies rash or skin lesions [] Neurologic: Denies headache, focal weakness or sensory changes [] All other systems were reviewed and found to be within normal limits, except as documented in this note. Current Medications Current Medications Current Medications Medications (Trade) Dose Ordered Sig/Andrzej Start Time Stop Time Status Last Admin Dose Admin Morphine Sulfate (Morphine 4mg Syringe) 4 mg 1X ONCE 10/09/19 01:45 10/09/19 02:00 DC 10/09/19 01:48 4 MG Ondansetron HCl (Zofran) 4 mg 1X ONCE 10/09/19 01:45 10/09/19 02:00 DC 10/09/19 01:47 4 MG Sodium Chloride 1,000 ml @ 1,000 mls/hr 1X ONCE 10/09/19 01:45 10/09/19 02:44 10/09/19 01:47 1,000 MLS/HR Allergies Allergies Allergies Coded Allergies Type Severity Reaction Last Updated Verified Milk Containing Products Allergy Unknown 10/04/19 Yes lisinopril Allergy Unknown 10/04/19 No Physical Exam Physical Exam Constitutional: Well developed, well nourished, no acute distress, non-toxic appearance. [] HENT: Normocephalic, atraumatic, bilateral external ears normal, oropharynx moist, no oral exudates, nose normal. [] Eyes: PERRLA, EOMI, conjunctiva normal, no discharge. [] Neck: Normal range of motion, no tenderness, supple, no stridor. [] Cardiovascular:Heart rate regular rhythm, no murmur [] Lungs & Thorax: Bilateral breath sounds clear to auscultation [] Abdomen: Bowel sounds normal, soft, mild suprapubic and left lower quadrant tenderness with no guarding or rebound tenderness present, no masses, no pulsatile masses. [] Skin: Warm, dry, no erythema, no rash. [] Back: No tenderness, no CVA tenderness. [] Extremities: No tenderness, no cyanosis, no clubbing, ROM intact, no edema. [] Neurologic: Alert and oriented X 3, normal motor function, normal sensory function, no focal deficits noted. [] Current Patient Data Vital Signs Vital Signs Date Time Temp Pulse Resp B/P (MAP) Pulse Ox O2 Delivery O2 Flow Rate FiO2 10/09/19 01:48 18 100 Room Air 10/09/19 00:34 98.2 74 Lab Results Laboratory Tests Test 10/09/19 00:52 10/09/19 01:05 Urine Collection Type Void Urine Color Yellow Urine Clarity Clear Urine pH 7.0 Urine Specific [place] 1.010 Urine Protein Neg (NEG-TRACE) Urine Glucose (UA) Neg mg/dL (NEG) Urine Ketones (Stick) Neg mg/dL (NEG) Urine Blood Neg (NEG) Urine Nitrite Neg (NEG) Urine Bilirubin Neg (NEG) Urine Urobilinogen Dipstick 0.2 mg/dL (0.2 mg/dL) Urine Leukocyte Esterase Neg (NEG) Urine RBC 0 /HPF (0-2) Urine WBC Occ /HPF (0-4) Urine Squamous Epithelial Cells Occ /LPF Urine Bacteria 0 /HPF (0-FEW) Urine Test Negative (NEG) White Blood Count 3.9 x10^3/uL (4.0-11.0) L Red Blood Count 4.62 x10^6/uL (3.50-5.40) Hemoglobin 14.3 g/dL (12.0-15.5) Hematocrit 42.1 % (36.0-47.0) Mean Corpuscular Volume 91 fL (79-100) Mean Corpuscular Hemoglobin 31 pg (25-35) Mean Corpuscular Hemoglobin Concent 34 g/dL (31-37) Red Cell Distribution Width 14.2 % (11.5-14.5) Platelet Count 153 x10^3/uL (140-400) Neutrophils (%) (Auto) 45 % (31-73) Lymphocytes (%) (Auto) 43 % (24-48) Monocytes (%) (Auto) 10 % (0-9) H Eosinophils (%) (Auto) 2 % (0-3) Basophils (%) (Auto) 1 % (0-3) Neutrophils # (Auto) 1.8 x10^3uL (1.8-7.7) Lymphocytes # (Auto) 1.7 x10^3/uL (1.0-4.8) Monocytes # (Auto) 0.4 x10^3/uL (0.0-1.1) Eosinophils # (Auto) 0.1 x10^3/uL (0.0-0.7) Basophils # (Auto) 0.0 x10^3/uL (0.0-0.2) Sodium Level 140 mmol/L (136-145) Potassium Level 3.8 mmol/L (3.5-5.1) Chloride Level 105 mmol/L (98-107) Carbon Dioxide Level 27 mmol/L (21-32) Anion Gap 8 (6-14) Blood Urea Nitrogen 15 mg/dL (7-20) Creatinine 0.7 mg/dL (0.6-1.0) Estimated GFR (Cockcroft-Gault) 120.6 BUN/Creatinine Ratio 21 (6-20) H Glucose Level 82 mg/dL (70-99) Calcium Level 8.3 mg/dL (8.5-10.1) L Total Bilirubin 0.2 mg/dL (0.2-1.0) Aspartate Amino Transferase (AST) 14 U/L (15-37) L Alanine Aminotransferase (ALT) 24 U/L (14-59) Alkaline Phosphatase 69 U/L (46-116) Total Protein 6.8 g/dL (6.4-8.2) Albumin 3.4 g/dL (3.4-5.0) Albumin/Globulin Ratio 1.0 (1.0-1.7) EKG EKG Not performed[] Radiology/Procedures Radiology/Procedures Not performed[] Course & Med Decision Making Course & Med Decision Making Pertinent Labs and Imaging studies reviewed. (See chart for details) Patient was given morphine and Zofran as well as IV fluids in the emergency department. The patient's blood work appears stable at this time. Patient's vital signs are stable and patient does not appear in acute distress at this time. Patient shows no signs for acute surgical process based off of examination and lab work done. Condition is stable at this time and patient is appropriate for outpatient follow-up. I have agreed to prescribe patient a short course of Evans and advised patient to follow-up with Dr. Vigil in the next 2 days for reevaluation. Advised return to emergency department for any worsening symptoms per the patient was understanding and in agreement with treatment plan. Dragon Disclaimer Dragon Disclaimer This electronic medical record was generated, in whole or in part, using a voice recognition dictation system. Departure Departure: Impression: Primary Impression: Pelvic pain Additional Impression: Ovarian cyst Disposition: 01 HOME, SELF-CARE Condition: STABLE Referrals: ALBERTO COLON (PCP) Patient Instructions: Ovarian Cyst, Pelvic Pain, Female Additional Instructions: Follow-up with Dr. Vigil in the next 2 days for reevaluation. Return to the emergency department for any worsening symptoms. Scripts Hydrocodone Bit/Acetaminophen (NORCO 5-325 TABLET) 1 Each Tablet 1 TAB PO Q6HRS PRN for PAIN, #12 TAB 0 Refills Prov: POLLO RAMIREZ MD 10/09/19 Problem Qualifiers Additional Impression: Ovarian cyst Laterality: left Qualified Codes: N83.202 - Unspecified ovarian cyst, left side POLLO RAMRIEZ MD Oct 09, 2019 02:37
[2019-10-09 02:45] VITALS: BP 155/107
== END 2019-10-09 02:49 | disposition home or self-care (01) ==
LOC: ER 00:28
DX: N83.202 Unspecified ovarian cyst, left side (principal); I10 Essential (primary) hypertension; Z90.721 Acquired absence of ovaries, unilateral; Z88.8 Allergy status to other drugs, medicaments and biological substances; Z91.011 Allergy to milk products
CPT/HCPCS: 36415; 80053; 81001; 81025; 85025; 96374; 96375; 99284; J2270; J2405; J7030

== ENCOUNTER 2019-11-22 14:25 | Emergency (ER) | payer MEDICAID ==
[~2019-11-22] VITALS: Ht 160 cm; Wt 111.3 kg
[2019-11-22] MEDS ORDERED: ONDANSETRON PF 4 MG/2 ML VIAL. IV ONE (15:00)
[2019-11-22] MEDS ORDERED: IV NORMAL SALINE 1,000ML 1,000 ML IV ONE (15:00)
[2019-11-22] MEDS ORDERED: DICYCLOMINE HCL 20 MG TABLET PO ONE (15:30)
[2019-11-22 16:29] LABS: BASO % 1 % (0-3); EOS # 0.1 x10^3/uL (0.0-0.7); EOS % 1 % (0-3); HEMATOCRIT 41.4 % (36.0-47.0); HEMOGLOBIN 14.6 g/dL (12.0-15.5); LYMPH # 1.3 x10^3/uL (1.0-4.8); LYMPH % 27 % (24-48); MEAN CORPUSCULAR HEMOGLOBIN 31 pg (25-35); MEAN CORPUSCULAR HGB CONC 35 g/dL (31-37); MEAN CORPUSCULAR VOLUME 90 fL (79-100); MONO # 0.3 x10^3/uL (0.0-1.1); MONO % 7 % (0-9); NEUT # 3.1 x10^3uL (1.8-7.7); NEUT % 64 % (31-73); PLATELET COUNT 154 x10^3/uL (140-400); RED BLOOD COUNT 4.63 x10^6/uL (3.50-5.40); RED CELL DISTRIBUTION WIDTH 13.3 % (11.5-14.5); WHITE BLOOD COUNT 4.8 x10^3/uL (4.0-11.0)
[2019-11-22 16:41] LABS: CALCIUM 8.3 mg/dL (8.5-10.1); CREATININE 0.7 mg/dL (0.6-1.0); GFR 120.6; POTASSIUM 3.8 mmol/L (3.5-5.1)
[2019-11-22 16:45] LABS: BACTERIA,URINE 0 /HPF (0-FEW); BILIRUBIN,URINE NEG (NEG); CLARITY,URINE CLEAR; COLOR,URINE YELLOW; GLUCOSE,URINE NEG (NEG); NITRITE,URINE NEG (NEG); SQUAMOUS EPITHELIAL CELL,UR MOD /LPF; U PREG PATIENT NEGATIVE (NEG); UROBILINOGEN,URINE 0.2 mg/dL (0.2 mg/dL)
[2019-11-22 16:47] LABS: ALBUMIN 3.8 g/dL (3.4-5.0); ALBUMIN/GLOBULIN RATIO 1.2 (1.0-1.7); TOTAL BILIRUBIN 0.5 mg/dL (0.2-1.0); TOTAL PROTEIN 7.1 g/dL (6.4-8.2)
--- NOTE | 2019-11-22 16:54 | RAD ---
Transabdominal and transvaginal sonography of the pelvis Clinical indications: Left lower quadrant abdominal pain. History of surgical removal of the right ovary. Transabdominal sonography: Uterus is anteverted in position. The longitudinal and AP and transverse dimensions of the uterus are 8.8 cm and 3.8 cm and 4.8 cm respectively. The endometrial canal is poorly visualized and therefore transvaginal sonography will be performed. No uterine mass or fibroid is seen. No adnexal mass is evident. The left ovary is normal and measures 3.2 cm and 2.1 cm and 3.3 cm in size. Color Doppler flow is seen within the left ovary. The right ovary is surgically absent. Transvaginal sonography: The endometrial canal measures 7.5 mm in thickness and is normal. No uterine mass is seen. Small amount of free fluid is seen within the cul-de-sac and anterior to the uterus. The right ovary is surgically absent. The left ovary is normal. Color flow is seen within the left ovary. No adnexal mass is seen. IMPRESSION: Left ovary is normal. Small amount of free fluid. Electronically signed by: Agustin Snyder MD (11/22/2019 4:50 PM) [facility] [place]
[2019-11-22] MEDS ORDERED: KETOROLAC 15 MG/ML VIAL. IVP ONE (17:30)
--- NOTE | 2019-11-22 17:33 | PHYS DOC ---
Past History Past Medical History: Anxiety, Hypertension Additional Past Medical Histor: Castleman's disease, Lymphoproliferateive disorder (MARCELA ARANA MD) Past Surgical History: Other Additional Past Surgical Histo: right follopian tube and right ovary removed in september (MARCELA ARANA MD) Smoking: Non-smoker Alcohol Use: None Drug Use: None (MARCELA ARANA MD) Adult General Chief Complaint Chief Complaint: ABDOMINAL PAIN HPI HPI Patient is a 29-year-old female presenting with chief complaint of abdominal pain vomiting and diarrhea she said loose stool she is having left-sided abdominal pain she says it feels similar to when she had to have her right ovary removed late last year. No fever that she knows of she just feels weak and tired and the pain is coming and going its crampy in nature. No urinary problems no vaginal discharge (MARCELA ARANA MD) Review of Systems Review of Systems Constitutional: Denies fever or chills [] Eyes: Denies change in visual acuity, redness, or eye pain [] HENT: Denies nasal congestion or sore throat [] Respiratory: Denies cough or shortness of breath [] Neurologic: Denies headache, focal weakness or sensory changes [] Endocrine: Denies polyuria or polydipsia [] All other systems were reviewed and found to be within normal limits, except as documented in this note. (MARCELA ARANA MD) Current Medications Current Medications Current Medications Medications (Trade) Dose Ordered Sig/Andrzej Start Time Stop Time Status Last Admin Dose Admin Dicyclomine HCl (Bentyl) 20 mg 1X ONCE 11/22/19 15:30 11/22/19 15:31 DC 11/22/19 15:59 20 MG Fentanyl Citrate (Fentanyl 2ml Vial) 50 mcg 1X ONCE 11/22/19 15:00 11/22/19 15:01 DC 11/22/19 15:59 50 MCG Ondansetron HCl (Zofran) 4 mg 1X ONCE 11/22/19 15:00 11/22/19 15:01 DC 11/22/19 15:59 4 MG Sodium Chloride 1,000 ml @ 1,000 mls/hr 1X ONCE 11/22/19 15:00 11/22/19 15:59 DC 11/22/19 16:00 1,000 MLS/HR (MARCELA ARANA MD) Allergies Allergies Allergies Coded Allergies Type Severity Reaction Last Updated Verified Milk Containing Products Allergy Unknown 10/04/19 Yes lisinopril Allergy Unknown 10/04/19 No (MARCELA ARANA MD) Physical Exam Physical Exam Constitutional: Well developed, well nourished, no acute distress, non-toxic appearance. [] HENT: Normocephalic, atraumatic, bilateral external ears normal, oropharynx moist, no oral exudates, nose normal. [] Eyes: PERRLA, EOMI, conjunctiva normal, no discharge. [] Neck: Normal range of motion, no tenderness, supple, no stridor. [] Cardiovascular:Heart rate regular rhythm, no murmur [] Lungs & Thorax: Bilateral breath sounds clear to auscultation [] Abdomen: Bowel sounds normal, soft, llq ttp noted. Skin: Warm, dry, no erythema, no rash. [] Back: No tenderness, no CVA tenderness. [] Extremities: No tenderness, no cyanosis, no clubbing, ROM intact, no edema. [] Neurologic: Alert and oriented X 3, normal motor function, normal sensory fun ction, no focal deficits noted. [] Psychologic: Affect normal, judgement normal, mood normal. [] (MARCELA ARANA MD) Current Patient Data Vital Signs Vital Signs Date Time Temp Pulse Resp B/P (MAP) Pulse Ox O2 Delivery O2 Flow Rate FiO2 11/22/19 16:18 86 18 100 Room Air Lab Results Laboratory Tests Test 11/22/19 15:48 11/22/19 16:03 Urine Collection Type Unknown Urine Color Yellow Urine Clarity Clear Urine pH 6.5 Urine Specific [place] 1.015 Urine Protein Neg (NEG-TRACE) Urine Glucose (UA) Neg mg/dL (NEG) Urine Ketones (Stick) Neg mg/dL (NEG) Urine Blood Neg (NEG) Urine Nitrite Neg (NEG) Urine Bilirubin Neg (NEG) Urine Urobilinogen Dipstick 0.2 mg/dL (0.2 mg/dL) Urine Leukocyte Esterase Small (NEG) Urine RBC 1-2 /HPF (0-2) Urine WBC 5-10 /HPF (0-4) Urine Squamous Epithelial Cells Mod /LPF Urine Bacteria 0 /HPF (0-FEW) Urine Mucus Slight /LPF Urine Test Negative (NEG) White Blood Count 4.8 x10^3/uL (4.0-11.0) Red Blood Count 4.63 x10^6/uL (3.50-5.40) Hemoglobin 14.6 g/dL (12.0-15.5) Hematocrit 41.4 % (36.0-47.0) Mean Corpuscular Volume 90 fL (79-100) Mean Corpuscular Hemoglobin 31 pg (25-35) Mean Corpuscular Hemoglobin Concent 35 g/dL (31-37) Red Cell Distribution Width 13.3 % (11.5-14.5) Platelet Count 154 x10^3/uL (140-400) Neutrophils (%) (Auto) 64 % (31-73) Lymphocytes (%) (Auto) 27 % (24-48) Monocytes (%) (Auto) 7 % (0-9) Eosinophils (%) (Auto) 1 % (0-3) Basophils (%) (Auto) 1 % (0-3) Neutrophils # (Auto) 3.1 x10^3uL (1.8-7.7) Lymphocytes # (Auto) 1.3 x10^3/uL (1.0-4.8) Monocytes # (Auto) 0.3 x10^3/uL (0.0-1.1) Eosinophils # (Auto) 0.1 x10^3/uL (0.0-0.7) Basophils # (Auto) 0.0 x10^3/uL (0.0-0.2) Sodium Level 140 mmol/L (136-145) Potassium Level 3.8 mmol/L (3.5-5.1) Chloride Level 104 mmol/L (98-107) Carbon Dioxide Level 24 mmol/L (21-32) Anion Gap 12 (6-14) Blood Urea Nitrogen 7 mg/dL (7-20) Creatinine 0.7 mg/dL (0.6-1.0) Estimated GFR (Cockcroft-Gault) 120.6 BUN/Creatinine Ratio 10 (6-20) Glucose Level 84 mg/dL (70-99) Calcium Level 8.3 mg/dL (8.5-10.1) L Total Bilirubin 0.5 mg/dL (0.2-1.0) Aspartate Amino Transferase (AST) 18 U/L (15-37) Alanine Aminotransferase (ALT) 22 U/L (14-59) Alkaline Phosphatase 66 U/L (46-116) Total Protein 7.1 g/dL (6.4-8.2) Albumin 3.8 g/dL (3.4-5.0) Albumin/Globulin Ratio 1.2 (1.0-1.7) Lipase 99 U/L (73-393) (MARCELA ARANA MD) EKG EKG [] (MARCELA ARANA MD) Radiology/Procedures Radiology/Procedures [] Impressions: Transabdominal sonography: Uterus is anteverted in position. The longitudinal and AP and transverse dimensions of the uterus are 8.8 cm and 3.8 cm and 4.8 cm respectively. The endometrial canal is poorly visualized and therefore transvaginal sonography will be performed. No uterine mass or fibroid is seen. No adnexal mass is evident. The left ovary is normal and measures 3.2 cm and 2.1 cm and 3.3 cm in size. Color Doppler flow is seen within the left ovary. The right ovary is surgically absent. Transvaginal sonography: The endometrial canal measures 7.5 mm in thickness and is normal. No uterine mass is seen. Small amount of free fluid is seen within the cul-de-sac and anterior to the uterus. The right ovary is surgically absent. The left ovary is normal. Color flow is seen within the left ovary. No adnexal mass is seen. IMPRESSION: Left ovary is normal. Small amount of free fluid. Electronically signed by: Cameron Snyder MD (11/22/2019 4:50 PM) [facility] [place] DICTATED AND SIGNED BY: CAMERON SNYDER MD DATE: 11/22/19 165 CC: MARCELA ARANA MD; ALBERTO COLON ~ (MARCELA ARANA MD) Impressions: Exam: CT abdomen and pelvis with contrast INDICATION: Left lower quadrant pain, rule out diverticulitis TECHNIQUE: Sequential axial images through the abdomen and pelvis obtained following the administration of 75 mL of Omni 300 IV contrast. Sagittal and coronal reformatted images were reconstructed from the axial data and reviewed. Comparisons: 10/04/2019 FINDINGS: Heart size is normal. No pericardial effusion. Visualized lung bases are clear. No pleural effusion. Liver, spleen, pancreas, gallbladder and adrenals are unremarkable. Kidneys demonstrate symmetric enhancement. No perinephric inflammation or hydronephrosis. No renal or ureteral calculi are identified. Bladder is distended and appears thin-walled. Uterus is not enlarged. No abnormal adnexal mass. Mild bowel wall thickening involving the transverse colon. The remainder of the large and small bowel are unremarkable. No obstruction. No free intra-abdominal air or fluid. Abdominal aorta has a normal course and caliber. Abdominal vasculature is patent. No enlarged intra-abdominal lymph nodes are identified. No suspicious osseous lesions or acute fractures. IMPRESSION: Wall thickening involving the transverse colon, favored represent colitis, may be infectious or inflammatory in etiology. Exposure: One or more of the following in the visualized dose reduction techniques were utilized for this examination: 1. Automated exposure control 2. Adjustment of the MA and/or KV according to patient size 3. Use of iterative of reconstructive technique Electronically signed by: Hector Moreland MD (11/22/2019 6:57 PM) [facility] [id number] DICTATED AND SIGNED BY: HECTOR MORELAND MD DATE: 11/22/191856 CC: MARCELA ARANA MD; ALBERTO COLON ~ (DONNIE SHELTON DO) Course & Med Decision Making Course & Med Decision Making Pertinent Labs and Imaging studies reviewed. (See chart for details) []29-year-old female who is presenting with nausea vomiting diarrhea and some abdominal discomfort and left lower quadrant tenderness we started with an ultrasound to evaluate the ovary due to her recent history that was normal. On reevaluation she was still having sharp left lower quadrant tenderness to palpation so that a CT abdomen and pelvis. Noted the urinalysis I gave a dose of ceftriaxone she is not having any dysuria however. Care will be signed over to Dr. Shelton at 1800 (MARCELA ARANA MD) Course & Med Decision Making The patient's CT of the abdomen and pelvis shows colitis of the transverse colon. I will treat her with Augmentin for 7 days. She is stable for discharge at this time. (DONNIE SHELTON DO) Dragon Disclaimer Dragon Disclaimer This electronic medical record was generated, in whole or in part, using a voice recognition dictation system. (MARCELA ARANA MD) Departure Departure: Impression: Primary Impression: Pain in the abdomen Additional Impression: Colitis Disposition: HOME/RESIDENCE PRIOR TO ADM Condition: STABLE Referrals: ALBERTO COLON (PCP) Patient Instructions: Colitis Scripts Amoxicillin/Potassium Clav (AUGMENTIN 875-125 TABLET) 1 Each Tablet 1 TAB PO BID for colitis for 7 Days, #14 TAB 0 Refills Prov: DONNIE SHELTON DO 11/22/19 Problem Qualifiers MARCELA ARANA MD Nov 22, 2019 17:33 DONNIE SHELTON DO Nov 22, 2019 19:07
[2019-11-22] MEDS ORDERED: cefTRIAXone SODIUM 1 GM VIAL ONE (17:50)
[2019-11-22] MEDS ORDERED: IV NORMAL SALINE 50ML 50 ML ONE (17:50)
[2019-11-22] MEDS ORDERED: CONTRAST GIVEN MC PRN (18:15)
[2019-11-22] MEDS ORDERED: IOHEXOL 300 MG/ML 75 ML VIAL. IV ONE (18:15)
--- NOTE | 2019-11-22 19:00 | RAD ---
Exam: CT abdomen and pelvis with contrast INDICATION: Left lower quadrant pain, rule out diverticulitis TECHNIQUE: Sequential axial images through the abdomen and pelvis obtained following the administration of 75 mL of Omni 300 IV contrast. Sagittal and coronal reformatted images were reconstructed from the axial data and reviewed. Comparisons: 10/04/2019 FINDINGS: Heart size is normal. No pericardial effusion. Visualized lung bases are clear. No pleural effusion. Liver, spleen, pancreas, gallbladder and adrenals are unremarkable. Kidneys demonstrate symmetric enhancement. No perinephric inflammation or hydronephrosis. No renal or ureteral calculi are identified. Bladder is distended and appears thin-walled. Uterus is not enlarged. No abnormal adnexal mass. Mild bowel wall thickening involving the transverse colon. The remainder of the large and small bowel are unremarkable. No obstruction. No free intra-abdominal air or fluid. Abdominal aorta has a normal course and caliber. Abdominal vasculature is patent. No enlarged intra-abdominal lymph nodes are identified. No suspicious osseous lesions or acute fractures. IMPRESSION: Wall thickening involving the transverse colon, favored represent colitis, may be infectious or inflammatory in etiology. Exposure: One or more of the following in the visualized dose reduction techniques were utilized for this examination: 1. Automated exposure control 2. Adjustment of the MA and/or KV according to patient size 3. Use of iterative of reconstructive technique Electronically signed by: Hector Barnes MD (11/22/2019 6:57 PM) [facility]
[2019-11-22] MEDS ORDERED: AMOX1TAB61 PO (19:06)
[2019-11-22 19:30] VITALS: BP 176/115
[2019-11-22] MEDS ORDERED: AMOXICILLIN/K CLAV 875/125MG TABLET. PO ONE (19:30)
[2019-11-22] MEDS ORDERED: HYDR-3165 PO (19:32)
[2019-11-22] MEDS ORDERED: HYDROcodone/APAP 7.5/325MG 1 TAB TABLET PO ONE (19:45)
== END 2019-11-22 19:40 | disposition home or self-care (01) ==
LOC: ER 14:25
DX: K52.9 Noninfective gastroenteritis and colitis, unspecified (principal); I10 Essential (primary) hypertension; Z91.011 Allergy to milk products; Z88.8 Allergy status to other drugs, medicaments and biological substances
CPT/HCPCS: 36415; 74177; 76830; 76856; 80053; 81001; 81025; 83690; 85025; 87086; 96361; 96365; 96375; 99285; J0696; J1885; J2405; J3010; Q9967; J7030

== ENCOUNTER 2019-11-27 11:42 | Emergency (ER) | payer MEDICAID ==
[~2019-11-27] VITALS: Ht 160 cm; Wt 106.6 kg
[~2019-11-27 11:42] MED LIST changes: +AMOX1TAB61 PO
[2019-11-27] MEDS ORDERED: ONDANSETRON PF 4 MG/2 ML VIAL. IVP ONE (12:15)
[2019-11-27] MEDS ORDERED: KETOROLAC 30 MG/ML VIAL. IVP ONE (12:15)
[2019-11-27] MEDS ORDERED: FAMOTIDINE 20 MG/2 ML VIAL IVP ONE (12:15)
[2019-11-27 12:33] LABS: BASO % 1 % (0-3); EOS # 0.1 x10^3/uL (0.0-0.7); EOS % 2 % (0-3); HEMATOCRIT 39.4 % (36.0-47.0); HEMOGLOBIN 13.5 g/dL (12.0-15.5); LYMPH # 1.3 x10^3/uL (1.0-4.8); LYMPH % 34 % (24-48); MEAN CORPUSCULAR HEMOGLOBIN 32 pg (25-35); MEAN CORPUSCULAR HGB CONC 34 g/dL (31-37); MEAN CORPUSCULAR VOLUME 92 fL (79-100); MONO # 0.3 x10^3/uL (0.0-1.1); MONO % 7 % (0-9); NEUT # 2.3 x10^3uL (1.8-7.7); NEUT % 56 % (31-73); PLATELET COUNT 169 x10^3/uL (140-400); RED BLOOD COUNT 4.29 x10^6/uL (3.50-5.40)
--- NOTE | 2019-11-27 12:43 | PHYS DOC ---
Past History Past Medical History: Anxiety, Hypertension Additional Past Medical Histor: Castleman's disease, Lymphoproliferateive disorder Past Surgical History: Other Additional Past Surgical Histo: right follopian tube and right ovary removed in september Smoking: Non-smoker Alcohol Use: None Drug Use: None Adult General Chief Complaint Chief Complaint: ABDOMINAL PAIN HPI HPI Patient is a 29-year-old female who presents for recheck on her colitis. Patient was seen here recently and diagnosed with colitis and was sent home with antibiotics and pain medication. Patient states that she saw her primary care doctor today who had given her a prescription for the cramping but she states that that prescription is not strong enough. She states that she told her doctor that she would be coming back to the ER for more management of her pain. Patient specifically asked nurse if she was given a be prescribed something stronger during visit. Patient states that pain is a 9 out of 10. She states that she feels feverish. She states that she has some nausea but no vomiting. She does admit to loose stools.[] Review of Systems Review of Systems Constitutional: Complains of feeling feverish[] Respiratory: Denies cough or shortness of breath [] Cardiovascular: No additional information not addressed in HPI [] GI: Complains of abdominal pain with nausea and diarrhea [] Integument: Denies rash or skin lesions [] Neurologic: Denies headache, focal weakness or sensory changes [] All other systems were reviewed and found to be within normal limits, except as documented in this note. Current Medications Current Medications Current Medications Medications (Trade) Dose Ordered Sig/Andrzej Start Time Stop Time Status Last Admin Dose Admin Famotidine (Pepcid Vial) 20 mg 1X ONCE 11/27/19 12:15 11/27/19 12:18 DC 11/27/19 12:28 20 MG Fentanyl Citrate (Fentanyl 2ml Vial) 50 mcg PRN Q15MIN PRN 11/27/19 12:15 11/28/19 12:14 Ketorolac Tromethamine (Toradol 30mg Vial) 30 mg 1X ONCE 11/27/19 12:15 11/27/19 12:18 DC 11/27/19 12:30 30 MG Ondansetron HCl (Zofran) 4 mg 1X ONCE 11/27/19 12:15 11/27/19 12:18 DC 11/27/19 12:32 4 MG Allergies Allergies Allergies Coded Allergies Type Severity Reaction Last Updated Verified Milk Containing Products Allergy Unknown 10/04/19 Yes lisinopril Allergy Unknown 10/04/19 No Physical Exam Physical Exam Constitutional: Well developed, well nourished, no acute distress, non-toxic appearance. [] HENT: Normocephalic, atraumatic, bilateral external ears normal, oropharynx moist, no oral exudates, nose normal. [] Eyes: PERRLA, EOMI, conjunctiva normal, no discharge. [] Neck: Normal range of motion, no tenderness, supple. [] Cardiovascular: Regular rate and rhythm[] Lungs & Thorax: Bilateral breath sounds clear to auscultation [] Abdomen: Bowel sounds normal, soft, with diffuse reported tenderness. [] Skin: Warm, dry, no erythema, no rash. [] Extremities: No tenderness, no cyanosis, no clubbing, ROM intact. [] Neurologic: Alert and oriented X 3, no focal deficits noted. [] Current Patient Data Vital Signs Vital Signs Date Time Temp Pulse Resp B/P (MAP) Pulse Ox O2 Delivery O2 Flow Rate FiO2 11/27/19 11:53 98.7 89 18 159/109 (126) 97 Room Air Lab Results Laboratory Tests Test 11/27/19 12:20 White Blood Count 4.0 x10^3/uL (4.0-11.0) Red Blood Count 4.29 x10^6/uL (3.50-5.40) Hemoglobin 13.5 g/dL (12.0-15.5) Hematocrit 39.4 % (36.0-47.0) Mean Corpuscular Volume 92 fL (79-100) Mean Corpuscular Hemoglobin 32 pg (25-35) Mean Corpuscular Hemoglobin Concent 34 g/dL (31-37) Red Cell Distribution Width 14.0 % (11.5-14.5) Platelet Count 169 x10^3/uL (140-400) Neutrophils (%) (Auto) 56 % (31-73) Lymphocytes (%) (Auto) 34 % (24-48) Monocytes (%) (Auto) 7 % (0-9) Eosinophils (%) (Auto) 2 % (0-3) Basophils (%) (Auto) 1 % (0-3) Neutrophils # (Auto) 2.3 x10^3uL (1.8-7.7) Lymphocytes # (Auto) 1.3 x10^3/uL (1.0-4.8) Monocytes # (Auto) 0.3 x10^3/uL (0.0-1.1) Eosinophils # (Auto) 0.1 x10^3/uL (0.0-0.7) Basophils # (Auto) 0.0 x10^3/uL (0.0-0.2) EKG EKG [] Radiology/Procedures Radiology/Procedures [] Course & Med Decision Making Course & Med Decision Making Pertinent Labs and Imaging studies reviewed. (See chart for details) [] Dragon Disclaimer Dragon Disclaimer This electronic medical record was generated, in whole or in part, using a voice recognition dictation system. Departure Departure: Impression: Primary Impression: Abdominal pain Disposition: HOME, SELF-CARE Condition: STABLE Referrals: ALBERTO COLON (PCP) Patient Instructions: Abdominal Pain Additional Instructions: Continue taking medications that have already been prescribed. For additional pain management, he will need to follow-up with your primary care provider. Problem Qualifiers Primary Impression: Abdominal pain Abdominal location: generalized Qualified Codes: R10.84 - Generalized abdominal pain KAUSHAL BOWER Jr. DO Nov 27, 2019 12:43
[2019-11-27 13:12] LABS: CALCIUM 7.7 mg/dL (8.5-10.1); CREATININE 0.7 mg/dL (0.6-1.0); GFR 120.6; POTASSIUM 3.8 mmol/L (3.5-5.1)
[2019-11-27 13:17] LABS: ALBUMIN 3.4 g/dL (3.4-5.0); ALBUMIN/GLOBULIN RATIO 1.1 (1.0-1.7); TOTAL BILIRUBIN 0.1 mg/dL (0.2-1.0); TOTAL PROTEIN 6.4 g/dL (6.4-8.2)
[2019-11-27 14:03] VITALS: BP 155/115
== END 2019-11-27 14:01 | disposition home or self-care (01) ==
LOC: ER 11:42
DX: R10.84 Generalized abdominal pain (principal); R19.7 Diarrhea, unspecified; F41.9 Anxiety disorder, unspecified; R11.0 Nausea; I10 Essential (primary) hypertension
CPT/HCPCS: 36415; 80053; 83690; 85025; 96374; 96375; 99284; J1885; J2405; J3490

== ENCOUNTER 2019-12-04 13:37 | Emergency (ER) | payer MEDICAID ==
[~2019-12-04] VITALS: Ht 160 cm; Wt 111.3 kg
--- NOTE | 2019-12-04 14:28 | PHYS DOC ---
Past History Past Medical History: Anxiety, Hypertension Additional Past Medical Histor: Castleman's disease, Lymphoproliferateive disorder Past Surgical History: Other Additional Past Surgical Histo: right follopian tube and right ovary removed in september Smoking: Non-smoker Alcohol Use: None Drug Use: None Adult General Chief Complaint Chief Complaint: COUGH HPI HPI Patient is a 29-year-old female who presents to the emergency department for evaluation. She states for the past 5-6 days, she has had nasal congestion, nonproductive cough, fever, malaise, and myalgias. She states she had a syncopal episode last night, due to not feeling well, as well as one last week. She reports diffuse myalgias but no focal pain. She also does report pain with coughing in her chest, but no other chest pain. She denies any numbness, weakness, focal headache, vision changes, abdominal pain, nausea, vomiting, or diarrhea. She states she did just get over an episode of colitis, with the help of antibiotics. There are no alleviating or exacerbating factors to her symptoms. Review of Systems Review of Systems Constitutional: Denies lethargy or chills [] Eyes: Denies change in visual acuity, redness, or eye pain [] HENT: Denies otalgia or sore throat [] Respiratory: Denies shortness of breath [] Cardiovascular: No additional information not addressed in HPI [] GI: Denies abdominal pain, nausea, vomiting, bloody stools or diarrhea [] : Denies dysuria or hematuria [] Musculoskeletal: Denies back pain or joint pain [] Integument: Denies rash or skin lesions [] Neurologic: Denies headache, focal weakness or sensory changes [] Endocrine: Denies polyuria or polydipsia [] All other systems were reviewed and found to be within normal limits, except as documented in this note. Current Medications Current Medications Current Medications Medications (Trade) Dose Ordered Sig/Andrzej Start Time Stop Time Status Last Admin Dose Admin Ketorolac Tromethamine (Toradol 30mg Vial) 30 mg 1X ONCE 12/04/19 14:30 12/04/19 14:31 UNV Allergies Allergies Allergies Coded Allergies Type Severity Reaction Last Updated Verified Milk Containing Products Allergy Unknown 10/04/19 Yes lisinopril Allergy Unknown 10/04/19 No Physical Exam Physical Exam PHYSICAL EXAM: CONSTITUTIONAL: Well developed, well nourished. Uncomfortable, but nontoxic appearing. HEAD: normocephalic, atraumatic EENT: PERRL, EOMI. Conjunctivae normal color, sclerae non-icteric; moist mucous membranes. The oropharynx is not erythematous. Nasal congestion is present. NECK: Supple, non-tender; no meningismus. LUNGS: Lungs CTA, breathing even and unlabored. Normal air movement. HEART: Regular rate and rhythm, no murmur CHEST: No deformity; non-tender ABDOMEN: The abdomen is soft, and non-tender, no masses or bruits. EXTREM: Normal ROM; no deformity, no calf tenderness. Normal pulses palpable in all extremities. There is no pedal edema. SKIN: No rash; no diaphoresis NEURO: Alert; normal speech and cognition; CN's grossly intact; strength grossly intact without focal deficit. BACK: No CVA TTP. Current Patient Data Vital Signs Vital Signs Date Time Temp Pulse Resp B/P (MAP) Pulse Ox O2 Delivery O2 Flow Rate FiO2 12/04/19 14:16 98.4 99 18 164/98 (120) 99 Room Air Lab Results Laboratory Tests Test 12/04/19 14:40 White Blood Count 3.0 x10^3/uL Red Blood Count 4.82 x10^6/uL Hemoglobin 14.9 g/dL Hematocrit 44.1 % Mean Corpuscular Volume 92 fL Mean Corpuscular Hemoglobin 31 pg Mean Corpuscular Hemoglobin Concent 34 g/dL Red Cell Distribution Width 13.6 % Platelet Count 152 x10^3/uL Neutrophils (%) (Auto) 61 % Lymphocytes (%) (Auto) 27 % Monocytes (%) (Auto) 12 % Eosinophils (%) (Auto) 0 % Basophils (%) (Auto) 0 % Neutrophils # (Auto) 1.8 x10^3uL Lymphocytes # (Auto) 0.8 x10^3/uL Monocytes # (Auto) 0.4 x10^3/uL Eosinophils # (Auto) 0.0 x10^3/uL Basophils # (Auto) 0.0 x10^3/uL Sodium Level 139 mmol/L Potassium Level 3.1 mmol/L Chloride Level 101 mmol/L Carbon Dioxide Level 28 mmol/L Anion Gap 10 Blood Urea Nitrogen 12 mg/dL Creatinine 0.8 mg/dL Estimated GFR (Cockcroft-Gault) 103.3 BUN/Creatinine Ratio 15 Glucose Level 103 mg/dL Calcium Level 7.8 mg/dL Total Bilirubin 0.4 mg/dL Aspartate Amino Transf (AST/SGOT) 23 U/L Alanine Aminotransferase (ALT/SGPT) 23 U/L Alkaline Phosphatase 60 U/L Total Protein 7.4 g/dL Albumin 3.5 g/dL Albumin/Globulin Ratio 0.9 Serum Test, Qualitative Negative Influenza Type A (Rapid) Negative Influenza Type B (Rapid) Negative Current Medications Medications (Trade) Dose Ordered Sig/Andrzej Route PRN Reason Start Time Stop Time Status Last Admin Dose Admin Ketorolac Tromethamine (Toradol 30mg Vial) 30 mg 1X ONCE IVP 12/04/19 14:45 12/04/19 14:46 DC 12/04/19 14:46 Sodium Chloride 1,000 ml @ 1,000 mls/hr 1X ONCE IV 12/04/19 14:30 12/04/19 15:29 12/04/19 14:45 EKG EKG []Sinus tachycardia at a rate of 106 bpm, normal axis, normal intervals. There are no acute ischemic ST/T changes. Radiology/Procedures Radiology/Procedures PROCEDURE: CHEST PA & LATERAL CHEST PA LATERAL History: Cough Comparison: 10/17/2017 2 view chest x-ray exam. Findings: Frontal and lateral view of the chest were obtained. The cardiomediastinal silhouette is normal. Pulmonary vasculature is normal. The lungs are clear. No pleural effusion or pneumothorax is seen. There is no acute bone abnormality. Scoliosis noted. IMPRESSION: No acute cardiopulmonary process. [] Course & Med Decision Making Course & Med Decision Making Pertinent Labs and Imaging studies reviewed. (See chart for details) [] The patient's condition remains stable. I discussed test results in detail, the need for close PCP follow-up, adequate oral hydration, analgesics, and NSAIDs for myalgia and pain relief, and return precautions in detail. Dragon Disclaimer Dragon Disclaimer This electronic medical record was generated, in whole or in part, using a voice recognition dictation system. Departure Departure: Impression: Primary Impression: Upper respiratory infection Additional Impression: Viral syndrome Disposition: 01 HOME, SELF-CARE Condition: STABLE Referrals: ALBERTO COLON (PCP) Patient Instructions: Cough, Adult, Upper Respiratory Infection, Adult, Viral Syndrome Additional Instructions: Make sure to eat a full diet and drink plenty of fluids. [id number]-qqeftrm cough medications, such as NyQuil or DayQuil, as appropriate, may help with symptom relief. Ibuprofen 400-600 mg every 6 hours may help improve fever and pain. Scripts Benzonatate (TESSALON PERLE) 100 Mg Capsule 200 MG PO TID PRN for COUGH, #20 CAP Prov: BENJA ENCINAS MD 12/04/19 Problem Qualifiers BENJA ENCINAS MD Dec 04, 2019 14:28
[2019-12-04] MEDS ORDERED: IV NORMAL SALINE 1,000ML 1,000 ML IV ONE (14:30)
[2019-12-04] MEDS ORDERED: KETOROLAC 30 MG/ML VIAL. IVP ONE (14:45)
[2019-12-04 15:02] LABS: BASO % 0 % (0-3); EOS % 0 % (0-3); HEMATOCRIT 44.1 % (36.0-47.0); HEMOGLOBIN 14.9 g/dL (12.0-15.5); LYMPH # 0.8 x10^3/uL (1.0-4.8); LYMPH % 27 % (24-48); MEAN CORPUSCULAR HEMOGLOBIN 31 pg (25-35); MEAN CORPUSCULAR HGB CONC 34 g/dL (31-37); MEAN CORPUSCULAR VOLUME 92 fL (79-100); MONO # 0.4 x10^3/uL (0.0-1.1); MONO % 12 % (0-9); NEUT # 1.8 x10^3uL (1.8-7.7); NEUT % 61 % (31-73); PLATELET COUNT 152 x10^3/uL (140-400); RED BLOOD COUNT 4.82 x10^6/uL (3.50-5.40); RED CELL DISTRIBUTION WIDTH 13.6 % (11.5-14.5)
[2019-12-04 15:03] LABS: CALCIUM 7.8 mg/dL (8.5-10.1); CREATININE 0.8 mg/dL (0.6-1.0); GFR 103.3; POTASSIUM 3.1 mmol/L (3.5-5.1)
[2019-12-04 15:09] LABS: ALBUMIN 3.5 g/dL (3.4-5.0); ALBUMIN/GLOBULIN RATIO 0.9 (1.0-1.7); TOTAL BILIRUBIN 0.4 mg/dL (0.2-1.0); TOTAL PROTEIN 7.4 g/dL (6.4-8.2)
[2019-12-04 15:11] LABS: PREG TEST PT QUAL NEGATIVE (NEG)
--- NOTE | 2019-12-04 15:13 | RAD ---
CHEST PA LATERAL History: Cough Comparison: 10/17/2017 2 view chest x-ray exam. Findings: Frontal and lateral view of the chest were obtained. The cardiomediastinal silhouette is normal. Pulmonary vasculature is normal. The lungs are clear. No pleural effusion or pneumothorax is seen. There is no acute bone abnormality. Scoliosis noted. IMPRESSION: No acute cardiopulmonary process. Electronically signed by: Chavez Lainez MD (12/04/2019 3:10 PM) [id number]
[2019-12-04 15:14] VITALS: BP 136/92
[2019-12-04 15:24] LABS: INFLUENZA A PATIENT NEGATIVE (NEGATIVE); INFLUENZA B PATIENT NEGATIVE (NEGATIVE)
[2019-12-04] MEDS ORDERED: BENZ100C PO (15:33)
[2019-12-04] MEDS ORDERED: GUAI237L83 PO (16:53)
--- NOTE | 2019-12-04 17:13 | EKG ---
[address] [address] Test Date: 2019-12-04 Test Time: 14:33:15 Pat Name: SYED OAKLEY Department: Room: Gender: F [employer]: : 1990 Requested By: BENJA ENCINAS Order Number: [id number] Reading MD: Measurements Intervals [place] Rate: 106 P: 37 [place]: 140 QRS: 28 QRSD: 76 T: 13 QT: 346 QTc: 461 Interpretive Statements SINUS TACHYCARDIA NO SPECIFIC ECG ABNORMALITIES RI6.01 No previous ECG available for comparison
== END 2019-12-04 15:58 | disposition home or self-care (01) ==
LOC: ER 13:37
DX: J06.9 Acute upper respiratory infection, unspecified (principal); B34.9 Viral infection, unspecified; F41.9 Anxiety disorder, unspecified; I10 Essential (primary) hypertension
CPT/HCPCS: 36415; 71046; 80053; 84703; 85025; 87804; 93005; 96361; 96374; 99285; J1885; J7030

== ENCOUNTER → 2020-02-13 | Outpatient (CLI) | payer MEDICAID ==
[~2020-02-13] MED LIST changes: +GUAI237L83 PO
--- NOTE | 2020-02-13 10:31 | RAD ---
EXAM: Lumbar spine, 3 views. HISTORY: Pain. COMPARISON: CT dated 11/22/2019. FINDINGS: 3 views of the lumbar spine are obtained. There is minimal retrolisthesis of L5 on S1. The vertebral bodies are normal in height and the disc spaces are preserved. There is mild thoracic dextroscoliosis. 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 There are few incidental calcifications overlying the abdomen which are associated with the mesentery on a prior CT. IMPRESSION: 1. No acute osseous finding. 2. Thoracic scoliosis. Electronically signed by: Ethel Abel MD (02/13/2020 10:28 AM) [facility]
== END ==
LOC: PMG 10:04
PROVIDERS: ATTEND Family Medicine
DX: M41.84 Other forms of scoliosis, thoracic region (principal)
CPT/HCPCS: 72100

== ENCOUNTER 2020-03-11 13:56 | Emergency (ER) | payer MEDICAID ==
[~2020-03-11] VITALS: Ht 160 cm; Wt 111.0 kg
[2020-03-11 14:56] LABS: BILIRUBIN,URINE NEG (NEG); CLARITY,URINE HAZY; COLOR,URINE YELLOW; GLUCOSE,URINE NEG (NEG); NITRITE,URINE NEG (NEG)
[2020-03-11 14:57] LABS: BACTERIA,URINE MOD /HPF (0-FEW); SQUAMOUS EPITHELIAL CELL,UR MOD /LPF
--- NOTE | 2020-03-11 14:58 | RAD ---
CHEST AP ONLY History: Shortness of breath, possible COVID Comparison: December 04, 2019 Findings: Single view of the chest is submitted. No significant infiltrate, pleural fluid, or pneumothorax is identified. Patient's hair projects over the right neck and superior chest, associated artifact. There is again reverse S-shaped scoliosis of the thoracic spine. Heart size is stable. Impression: 1. No significant infiltrate is identified by radiograph. Electronically signed by: Hans Najera MD (03/11/2020 2:55 PM) [facility]
[2020-03-11 15:14] LABS: CALCIUM 8.7 mg/dL (8.5-10.1); CREATININE 0.6 mg/dL (0.6-1.0); POTASSIUM 3.4 mmol/L (3.5-5.1)
[2020-03-11 15:21] LABS: ALBUMIN/GLOBULIN RATIO 1.1 (1.0-1.7); TOTAL BILIRUBIN 0.6 mg/dL (0.2-1.0); TOTAL PROTEIN 7.8 g/dL (6.4-8.2)
[2020-03-11 15:24] LABS: BASO % 1 % (0-3); EOS % 1 % (0-3); HEMATOCRIT 44.6 % (36.0-47.0); HEMOGLOBIN 15.3 g/dL (12.0-15.5); LYMPH # 1.2 x10^3/uL (1.0-4.8); LYMPH % 29 % (24-48); MEAN CORPUSCULAR HEMOGLOBIN 31 pg (25-35); MEAN CORPUSCULAR HGB CONC 34 g/dL (31-37); MEAN CORPUSCULAR VOLUME 91 fL (79-100); MONO # 0.4 x10^3/uL (0.0-1.1); MONO % 9 % (0-9); NEUT # 2.6 x10^3uL (1.8-7.7); NEUT % 61 % (31-73); PLATELET COUNT 200 x10^3/uL (140-400); RED BLOOD COUNT 4.89 x10^6/uL (3.50-5.40); RED CELL DISTRIBUTION WIDTH 12.9 % (11.5-14.5); WHITE BLOOD COUNT 4.3 x10^3/uL (4.0-11.0)
[2020-03-11 15:37] VITALS: BP 166/120
[2020-03-11 16:03] LABS: PLT ESTIMATE ADEQUATE (ADEQUATE)
--- NOTE | 2020-03-11 16:15 | PHYS DOC ---
Past History Past Medical History: No Pertinent History Additional Past Medical Histor: Castleman's disease, Lymphoproliferateive disorder Past Surgical History: No Surgical History Additional Past Surgical Histo: right follopian tube and right ovary removed in september Smoking: Non-smoker Alcohol Use: None Drug Use: None General Adult EDM: Chief Complaint: SORE THROAT HPI: HPI: 29-year-old female presents with cough with shortness of breath, body aches, low-grade fever, sore throat and generalized abdominal pain. Patient had the symptoms for 3 or 4 days. 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 Her shortness of breath is worse with exertion. Review of Systems: Review of Systems: Constitutional: Body aches. Low-grade fever Eyes: Denies change in visual acuity HENT: Denies nasal congestion or sore throat Respiratory: Cough with shortness of breath Cardiovascular: Denies chest pain or edema GI: Denies abdominal pain, nausea, vomiting, bloody stools or diarrhea : Denies dysuria Musculoskeletal: Denies back pain or joint pain Integument: Denies rash Neurologic: Denies headache, focal weakness or sensory changes Endocrine: Denies polyuria or polydipsia Lymphatic: Denies swollen glands Psychiatric: Denies depression or anxiety Heart Score: Risk Factors: Risk Factors: DM, Current or recent (<one month) smoker, HTN, HLP, family history of CAD, obesity. Risk Scores: Score 0 - 3: 2.5% MACE over next 6 weeks - Discharge Home Score 4 - 6: 20.3% MACE over next 6 weeks - Admit for Clinical Observation Score 7 - 10: 72.7% MACE over next 6 weeks - Early Invasive Strategies Allergies: Allergies: Allergies Coded Allergies Type Severity Reaction Last Updated Verified Milk Containing Products Allergy Unknown 10/04/19 Yes lisinopril Allergy Unknown 10/04/19 No Physical Exam: PE: Constitutional: Well developed, morbidly obese, well nourished, no acute distress, non-toxic appearance. [] HENT: Normocephalic, atraumatic, bilateral external ears normal, oropharynx moist, no oral exudates, nose normal. [] Eyes: PERRLA, EOMI, conjunctiva normal, no discharge. [] Neck: Normal range of motion, no tenderness, supple, no stridor. [] Cardiovascular: Heart rate regular rhythm, no murmur [] Lungs & Thorax: Deferred due to isolation precautions. [] Abdomen: Bowel sounds normal, soft, no tenderness, no masses, no pulsatile masses. [] Skin: Warm, dry, no erythema, no rash. [] Back: No tenderness, no CVA tenderness. [] Extremities: No tenderness, no cyanosis, no clubbing, ROM intact, no edema. [] Neurologic: Alert and oriented X 3, normal motor function, normal sensory function, no focal deficits noted. [] Psychologic: Affect normal, judgement normal, mood normal. [] Current Patient Data: Labs: Laboratory Tests Test 03/11/20 14:20 03/11/20 14:43 03/11/20 15:32 Urine Collection Type Unknown Urine Color Yellow Urine Clarity Hazy Urine pH 5.5 Urine Specific [place] 1.025 Urine Protein 30 mg/dl (NEG-TRACE) Urine Glucose (UA) Neg mg/dL (NEG) Urine Ketones (Stick) Neg mg/dL (NEG) Urine Blood Neg (NEG) Urine Nitrite Neg (NEG) Urine Bilirubin Neg (NEG) Urine Urobilinogen Dipstick 2.0 mg/dL (0.2 mg/dL) Urine Leukocyte Esterase Small (NEG) Urine RBC 1-2 /HPF (0-2) Urine WBC 5-10 /HPF (0-4) Urine Squamous Epithelial Cells Mod /LPF Urine Bacteria Mod /HPF (0-FEW) Urine Mucus Mod /LPF White Blood Count 4.3 x10^3/uL (4.0-11.0) Red Blood Count 4.89 x10^6/uL (3.50-5.40) Hemoglobin 15.3 g/dL (12.0-15.5) Hematocrit 44.6 % (36.0-47.0) Mean Corpuscular Volume 91 fL (79-100) Mean Corpuscular Hemoglobin 31 pg (25-35) Mean Corpuscular Hemoglobin Concent 34 g/dL (31-37) Red Cell Distribution Width 12.9 % (11.5-14.5) Platelet Count 200 x10^3/uL (140-400) Neutrophils (%) (Auto) 61 % (31-73) Lymphocytes (%) (Auto) 29 % (24-48) Monocytes (%) (Auto) 9 % (0-9) Eosinophils (%) (Auto) 1 % (0-3) Basophils (%) (Auto) 1 % (0-3) Neutrophils # (Auto) 2.6 x10^3uL (1.8-7.7) Lymphocytes # (Auto) 1.2 x10^3/uL (1.0-4.8) Monocytes # (Auto) 0.4 x10^3/uL (0.0-1.1) Eosinophils # (Auto) 0.0 x10^3/uL (0.0-0.7) Basophils # (Auto) 0.0 x10^3/uL (0.0-0.2) Platelet Estimate Adequate (ADEQUATE) Large Platelets Occ Giant Platelets Occ D-Dimer (Sherley) 0.27 mg/L (0.00-0.50) Sodium Level 139 mmol/L (136-145) Potassium Level 3.4 mmol/L (3.5-5.1) L Chloride Level 102 mmol/L (98-107) Carbon Dioxide Level 25 mmol/L (21-32) Anion Gap 12 (6-14) Blood Urea Nitrogen 10 mg/dL (7-20) Creatinine 0.6 mg/dL (0.6-1.0) Estimated GFR (Cockcroft-Gault) 144.0 BUN/Creatinine Ratio 17 (6-20) Glucose Level 91 mg/dL (70-99) Calcium Level 8.7 mg/dL (8.5-10.1) Total Bilirubin 0.6 mg/dL (0.2-1.0) Aspartate Amino Transferase (AST) 9 U/L (15-37) L Alanine Aminotransferase (ALT) 17 U/L (14-59) Alkaline Phosphatase 73 U/L (46-116) Total Protein 7.8 g/dL (6.4-8.2) Albumin 4.0 g/dL (3.4-5.0) Albumin/Globulin Ratio 1.1 (1.0-1.7) Group A Streptococcus Rapid Negative (NEGATIVE) Vital Signs: Vital Signs Date Time Temp Pulse Resp B/P (MAP) Pulse Ox O2 Delivery O2 Flow Rate FiO2 03/11/20 15:37 99.2 83 20 166/120 (135) 97 Room Air EKG: EKG: [] Radiology/Procedures: Radiology/Procedures: [] Impressions: CHEST AP ONLY History: Shortness of breath, possible COVID Comparison: December 04, 2019 Findings: Single view of the chest is submitted. No significant infiltrate, pleural fluid, or pneumothorax is identified. Patient's hair projects over the right neck and superior chest, associated artifact. There is again reverse S-shaped scoliosis of the thoracic spine. Heart size is stable. Impression: 1. No significant infiltrate is identified by radiograph. Electronically signed by: Jatinder Macias MD (03/11/2020 2:55 PM) [facility] DICTATED AND SIGNED BY: JATINDER MACIAS MD DATE: 03/11/20 [id number] CC: DONNIE SHELTON DO; DEX COLON MD ~ Course & Med Decision Making: Course & Med Decision Making Pertinent Labs and Imaging studies reviewed. (See chart for details) The patient's labs are unremarkable. Her rapid strep is negative. Her chest x- ray is negative for acute findings. Her d-dimer is negative. The patient is at risk for COVID-19, though no direct known exposures. I have recommended that she isolate until she is completely well for at least 3 days. She is stable for discharge at this time. [] Dragon Disclaimer: Dragon Disclaimer: This electronic medical record was generated, in whole or in part, using a voice recognition dictation system. Departure Departure: Impression: Primary Impression: Suspected COVID-19 virus infection Disposition: 01 HOME, SELF-CARE Condition: STABLE Referrals: DEX COLON MD (PCP) Patient Instructions: Viral Syndrome DONNIE SHELTON DO March 11, 2020 16:15
== END 2020-03-11 16:39 | disposition home or self-care (01) ==
LOC: ER 13:56
DX: Z20.828 Contact with and (suspected) exposure to other viral communicable diseases (principal); R05 Cough; R50.9 Fever, unspecified; R06.02 Shortness of breath; M79.10 Myalgia, unspecified site; J02.9 Acute pharyngitis, unspecified; R10.84 Generalized abdominal pain; Z91.011 Allergy to milk products; Z88.8 Allergy status to other drugs, medicaments and biological substances
CPT/HCPCS: 36415; 71045; 80053; 81001; 85025; 85379; 87070; 87086; 87880; 99284

== ENCOUNTER 2020-04-30 09:55 | Emergency (ER) | payer MEDICAID ==
[~2020-04-30] VITALS: Ht 160 cm; Wt 105.0 kg
[2020-04-30 10:05] VITALS: BP 188/128
--- NOTE | 2020-04-30 10:31 | PHYS DOC ---
Past History Past Medical History: No Pertinent History Additional Past Medical Histor: Castleman's disease, Lymphoproliferateive disorder Past Surgical History: No Surgical History Additional Past Surgical Histo: right follopian tube and right ovary removed in september Smoking: Non-smoker Alcohol Use: None Drug Use: None General Adult EDM: Chief Complaint: PELVIC PAIN HPI: HPI: Patient is a 23-year-old female presenting to the ED with a chief complaint of pelvic pain and vaginal discharge. Patient states that the symptoms been present for the last 2 days. Patient denies recent new partners and unprotected sex. Patient wants to be checked for as well. Patient denies fever, chills, nausea, vomiting, diarrhea, dysuria, chest pain, shortness of breath. Patient also denies vaginal bleeding, vaginal spotting but does say that she has vaginal discharge. Review of Systems: Review of Systems: Constitutional: Denies fever or chills Eyes: Denies change in visual acuity HENT: Denies nasal congestion or sore throat Respiratory: Denies cough or shortness of breath Cardiovascular: Denies chest pain or edema GI: Denies abdominal pain, nausea, vomiting, bloody stools or diarrhea : Denies dysuria. Complains of vaginal discharge Neurologic: Denies headache, focal weakness or sensory changes Heart Score: Risk Factors: Risk Factors: DM, Current or recent (<one month) smoker, HTN, HLP, family h istory of CAD, obesity. Risk Scores: Score 0 - 3: 2.5% MACE over next 6 weeks - Discharge Home Score 4 - 6: 20.3% MACE over next 6 weeks - Admit for Clinical Observation Score 7 - 10: 72.7% MACE over next 6 weeks - Early Invasive Strategies Allergies: Allergies: Allergies Coded Allergies Type Severity Reaction Last Updated Verified Milk Containing Products Allergy Unknown 10/04/19 Yes lisinopril Allergy Unknown 10/04/19 No Physical Exam: PE: Constitutional: Well developed, well nourished, no acute distress, non-toxic appearance. [] HENT: Normocephalic, atraumatic Eyes: EOMI Neck: Normal range of motion, Supple Cardiovascular:Heart rate regular rhythm Lungs & Thorax: Bilateral breath sounds clear to auscultation [] Abdomen: Soft, nontender, nondistended. : Mild vaginal discharge. No adnexal tenderness. No cervical motion tenderness. Extremities: No tenderness, ROM intact Neurologic: Alert and oriented X 3 Current Patient Data: Labs: Laboratory Tests Test 04/30/20 10:25 POC Urine HCG, Qualitative hcg negative (Negative) EKG: EKG: [] Radiology/Procedures: Radiology/Procedures: [] Course & Med Decision Making: Course & Med Decision Making Pertinent Labs reviewed. (See chart for details) Ordered UA and urine . Urine is negative. Pelvic exam performed. There is no adnexal tenderness or CMT. Wet prep shows that patient has clue cells present. UA shows patient has trichomonas present UA shows patient has positive nitrites but patient is asymptomatic. She does not want to be treated for UTI. Patient was treated with Flagyl and told to follow-up with PCP. Patient states that she has a history of anxiety and would like to talk to someone about this.. Patient denies suicidal ideation, homicidal ideation, hallucinations. I told patient that I can send her home with a few tablets of Xanax 0.25 mg. Patient can go to the [facility] for follow-up. Patient can also be seen by her PCP. Discussed results and plan of care with patient. Patient is instructed to follow up with PCP in one to 2 days. Appropriate discharge instructions given to patient to return to the ED or to seek immediate medical evaluation. Patient is instructed to return to the ED if symptoms worsen or if any concerns. Yuriy Disclaimer: Yuriy Disclaimer: This electronic medical record was generated, in whole or in part, using a voice recognition dictation system. Departure Departure: Impression: Primary Impression: Bacterial vaginosis Additional Impression: Trichomonal vaginitis Disposition: HOME/RESIDENCE PRIOR TO ADM Condition: STABLE Referrals: DEX COLON MD (PCP) Patient Instructions: Bacterial Vaginosis, Trichomoniasis Additional Instructions: Discussed results and plan of care with patient. Patient is instructed to follow up with PCP in one to 2 days. Appropriate discharge instructions given to patient to return to the ED or to seek immediate medical evaluation. Patient is instructed to return to the ED if symptoms worsen or if any concerns. Scripts Alprazolam (XANAX) 0.25 Mg Tablet 1 TAB PO DAILY for anxiety, #5 TAB Prov: LORRIE CHILDRESS E DO 04/30/20 Metronidazole (FLAGYL) 500 Mg Tablet 1 TAB PO BID for BV, #14 TAB Prov: GOLLAPALLI,LORRIE E DO 04/30/20 Justification of Admission: Justification of Admission: Justification of Admission Dx: LORRIE Bee DO Apr 30, 2020 10:31
[2020-04-30 10:48] LABS: BILIRUBIN,URINE NEG (NEG); CLARITY,URINE HAZY; COLOR,URINE YELLOW; GLUCOSE,URINE NEG (NEG)
[2020-04-30 10:49] LABS: BACTERIA,URINE FEW /HPF (0-FEW); NITRITE,URINE POS (NEG); SQUAMOUS EPITHELIAL CELL,UR MANY /LPF
[2020-04-30 10:51] LABS: TRICHOMONAS,URINE PRESENT
[2020-04-30] MEDS ORDERED: METR500T PO (11:40)
[2020-04-30] MEDS ORDERED: ALPR0.25 PO (11:40)
[2020-05-03 21:06] LABS: CHLAMYDIA PROBE Negative (Negative)
== END 2020-04-30 11:45 | disposition home or self-care (01) ==
LOC: ER 09:55
DX: N76.0 Acute vaginitis (principal); A59.01 Trichomonal vulvovaginitis; B96.89 Other specified bacterial agents as the cause of diseases classified elsewhere; R10.2 Pelvic and perineal pain; Z98.890 Other specified postprocedural states; Z91.018 Allergy to other foods; Z88.6 Allergy status to analgesic agent
CPT/HCPCS: 36415; 81001; 81025; 87086; 87491; 87591; 99284

== ENCOUNTER 2020-04-30 11:47 | Emergency (ER) | payer MEDICAID ==
[2020-04-30 10:05] VITALS: BP 188/128
[~2020-04-30 11:47] MED LIST changes: +ALPR0.25 PO
== END 2020-04-30 12:00 | disposition left against medical advice (07) ==
LOC: ER 11:47
DX: F41.9 Anxiety disorder, unspecified (principal); Z53.21 Procedure and treatment not carried out due to patient leaving prior to being seen by health care provider

== ENCOUNTER 2020-04-30 12:40 | Emergency (ER) | payer MEDICAID ==
[~2020-04-30] VITALS: Ht 160 cm; Wt 105.0 kg
[2020-04-30] MEDS ORDERED: ALPRAZolam 0.25 MG TABLET PO ONE (13:15)
[2020-04-30] MEDS ORDERED: cloNIDine HCL 0.1 MG TABLET PO ONE (13:15)
[2020-04-30 13:46] LABS: BASO % 1 % (0-3); EOS % 0 % (0-3); HEMATOCRIT 43.1 % (36.0-47.0); HEMOGLOBIN 14.7 g/dL (12.0-15.5); LYMPH # 1.3 x10^3/uL (1.0-4.8); LYMPH % 21 % (24-48); MEAN CORPUSCULAR HEMOGLOBIN 32 pg (25-35); MEAN CORPUSCULAR HGB CONC 34 g/dL (31-37); MEAN CORPUSCULAR VOLUME 93 fL (79-100); MONO # 0.4 x10^3/uL (0.0-1.1); MONO % 6 % (0-9); NEUT # 4.3 x10^3uL (1.8-7.7); NEUT % 72 % (31-73); PLATELET COUNT 183 x10^3/uL (140-400); RED BLOOD COUNT 4.66 x10^6/uL (3.50-5.40); RED CELL DISTRIBUTION WIDTH 13.1 % (11.5-14.5)
[2020-04-30 13:57] LABS: ALBUMIN 4.2 g/dL (3.4-5.0); ALBUMIN/GLOBULIN RATIO 1.2 (1.0-1.7); CALCIUM 8.9 mg/dL (8.5-10.1); CREATININE 0.9 mg/dL (0.6-1.0); GFR 90.2; TOTAL BILIRUBIN 0.7 mg/dL (0.2-1.0); TOTAL PROTEIN 7.8 g/dL (6.4-8.2)
[2020-04-30 14:10] VITALS: BP 160/101
--- NOTE | 2020-04-30 14:17 | PHYS DOC ---
Past History Past Medical History: Hypertension, Other Additional Past Medical Histor: Castleman's disease, Lymphoproliferateive disorder Past Surgical History: Other Additional Past Surgical Histo: right fallopian tube and right ovary removed in september Smoking: Non-smoker Alcohol Use: Occasionally Drug Use: None General Adult EDM: Chief Complaint: ANXIETY/PANIC ATTACK HPI: HPI: Patient is a 29-year-old female presenting to the ED with a chief complaint of anxiety. Patient was seen earlier this morning at that time wanted to have checked for STD. Patient was discharged home on oral antibiotics. Patient was also discharged home on Xanax 0.5 mg 5 tablets. Patient was instructed to follow-up with guidance Center or with her PCP. Patient was denying suicidal ideation, homicidal ideation or hallucinations at that time. Even now patient is denying suicidal ideation, homicidal ideation, hallucinations. Review of Systems: Review of Systems: Constitutional: Denies fever or chills Eyes: Denies change in visual acuity HENT: Denies nasal congestion or sore throat Respiratory: Denies cough or shortness of breath Cardiovascular: Denies chest pain or edema GI: Denies abdominal pain, nausea, vomiting, bloody stools or diarrhea : Denies dysuria Neurologic: Denies headache, focal weakness or sensory changes Psychiatric: Patient is denying suicidal ideation, homicidal ideation, hallucinations Heart Score: Risk Factors: Risk Factors: DM, Current or recent (<one month) smoker, HTN, HLP, family history of CAD, obesity. Risk Scores: Score 0 - 3: 2.5% MACE over next 6 weeks - Discharge Home Score 4 - 6: 20.3% MACE over next 6 weeks - Admit for Clinical Observation Score 7 - 10: 72.7% MACE over next 6 weeks - Early Invasive Strategies Current Medications: Current Meds: Current Medications Medications (Trade) Dose Ordered Sig/Andrzej Start Time Stop Time Status Last Admin Dose Admin Alprazolam (Xanax) 0.25 mg 1X ONCE 04/30/20 13:15 04/30/20 13:16 DC 04/30/20 13:19 0.25 MG Clonidine HCl (Catapres) 0.1 mg 1X ONCE 04/30/20 13:15 04/30/20 13:16 DC 04/30/20 13:15 0.1 MG Potassium Chloride (Klor-Con) 60 meq 1X ONCE 04/30/20 14:45 04/30/20 14:46 Allergies: Allergies: Allergies Coded Allergies Type Severity Reaction Last Updated Verified Milk Containing Products Allergy Intermediate 04/30/20 Yes lisinopril Allergy Intermediate 04/30/20 No Physical Exam: PE: Constitutional: Well developed, well nourished, no acute distress, non-toxic appearance. [] HENT: Normocephalic, atraumatic Eyes: EOMI Neck: Normal range of motion, Supple Cardiovascular:Heart rate regular rhythm Lungs & Thorax: Bilateral breath sounds clear to auscultation [] Abdomen: Bowel sounds normal, soft, no tenderness Extremities: No tenderness, ROM intact Neurologic: Alert and oriented X 3 Psychiatry: Patient does not endorse suicidal ideation, homicidal ideation Current Patient Data: Labs: Laboratory Tests Test 04/30/20 13:22 White Blood Count 6.0 x10^3/uL (4.0-11.0) Red Blood Count 4.66 x10^6/uL (3.50-5.40) Hemoglobin 14.7 g/dL (12.0-15.5) Hematocrit 43.1 % (36.0-47.0) Mean Corpuscular Volume 93 fL (79-100) Mean Corpuscular Hemoglobin 32 pg (25-35) Mean Corpuscular Hemoglobin Concent 34 g/dL (31-37) Red Cell Distribution Width 13.1 % (11.5-14.5) Platelet Count 183 x10^3/uL (140-400) Neutrophils (%) (Auto) 72 % (31-73) Lymphocytes (%) (Auto) 21 % (24-48) L Monocytes (%) (Auto) 6 % (0-9) Eosinophils (%) (Auto) 0 % (0-3) Basophils (%) (Auto) 1 % (0-3) Neutrophils # (Auto) 4.3 x10^3uL (1.8-7.7) Lymphocytes # (Auto) 1.3 x10^3/uL (1.0-4.8) Monocytes # (Auto) 0.4 x10^3/uL (0.0-1.1) Eosinophils # (Auto) 0.0 x10^3/uL (0.0-0.7) Basophils # (Auto) 0.0 x10^3/uL (0.0-0.2) Platelet Estimate Pending Sodium Level 140 mmol/L (136-145) Potassium Level 3.0 mmol/L (3.5-5.1) L Chloride Level 103 mmol/L (98-107) Carbon Dioxide Level 28 mmol/L (21-32) Anion Gap 9 (6-14) Blood Urea Nitrogen 8 mg/dL (7-20) Creatinine 0.9 mg/dL (0.6-1.0) Estimated GFR (Cockcroft-Gault) 90.2 BUN/Creatinine Ratio 9 (6-20) Glucose Level 104 mg/dL (70-99) H Calcium Level 8.9 mg/dL (8.5-10.1) Total Bilirubin 0.7 mg/dL (0.2-1.0) Aspartate Amino Transferase (AST) 12 U/L (15-37) L Alanine Aminotransferase (ALT) 19 U/L (14-59) Alkaline Phosphatase 65 U/L (46-116) Total Protein 7.8 g/dL (6.4-8.2) Albumin 4.2 g/dL (3.4-5.0) Albumin/Globulin Ratio 1.2 (1.0-1.7) Vital Signs: Vital Signs Date Time Temp Pulse Resp B/P (MAP) Pulse Ox O2 Delivery O2 Flow Rate FiO2 04/30/20 14:10 84 20 160/101 (120) 98 Room Air 04/30/20 12:50 98.4 EKG: EKG: [] Radiology/Procedures: Radiology/Procedures: [] Course & Med Decision Making: Course & Med Decision Making Pertinent Labs reviewed. (See chart for details) Ordered labs. Patient has elevated blood pressure and so ordered Catapres 0.5 mg oral tablet. Patient is also ordered Xanax 0.25 mg oral tablet Labs are within normal limits except potassium which is 3.0. Potassium was replaced in the ER. Discussed extensively with patient that she has a follow-up with her PCP or her creatinine center. Patient is requesting inpatient psychiatric admission for her anxiety. Discussed results and plan of care with patient. Patient is instructed to follow up with PCP in one to 2 days. Appropriate discharge instructions given to patient to return to the ED or to seek immediate medical evaluation. Patient is instructed to return to the ED if symptoms worsen or if any concerns. Dragon Disclaimer: Dragon Disclaimer: This electronic medical record was generated, in whole or in part, using a voice recognition dictation system. Departure Departure: Impression: Primary Impression: Hypokalemia Additional Impression: Anxiety Disposition: 01 HOME/RESIDENCE PRIOR TO ADM Condition: STABLE Referrals: DEX COLON MD (PCP) Patient Instructions: Anxiety and Panic Attacks, Hypokalemia Additional Instructions: Discussed results and plan of care with patient. Patient is instructed to follow up with PCP in one to 2 days. Appropriate discharge instructions given to patient to return to the ED or to seek immediate medical evaluation. Patient is instructed to return to the ED if symptoms worsen or if any concerns. Justification of Admission: Justification of Admission: Justification of Admission Dx: LORRIE Bee DO Apr 30, 2020 14:17
[2020-04-30 14:35] LABS: PLT ESTIMATE ADEQUATE (ADEQUATE)
[2020-04-30] MEDS ORDERED: POTASSIUM CHLORIDE 20 MEQ TABLET.ER. PO ONE (14:45)
== END 2020-04-30 14:27 | disposition home or self-care (01) ==
LOC: ER 12:40
DX: E87.6 Hypokalemia (principal); F41.8 Other specified anxiety disorders; I10 Essential (primary) hypertension; Z98.890 Other specified postprocedural states; Z91.018 Allergy to other foods; Z79.899 Other long term (current) drug therapy
CPT/HCPCS: 36415; 80053; 85025; 99284

== ENCOUNTER 2020-05-25 14:33 | Emergency (ER) | payer MEDICAID ==
[~2020-05-25] VITALS: Ht 160 cm; Wt 105.0 kg
--- NOTE | 2020-05-25 14:46 | PHYS DOC ---
Past History Past Medical History: Anxiety, Depression, Hypertension, Other Additional Past Medical Histor: Castleman's disease, Lymphoproliferateive disorder Past Surgical History: Other Additional Past Surgical Histo: right fallopian tube and right ovary removed in september Smoking: Non-smoker Alcohol Use: Occasionally Drug Use: None General Adult EDM: Chief Complaint: ANXIETY/PANIC ATTACK HPI: HPI: Patient is a 30-year-old female with a history of anxiety and depression who has been on antidepressants as well as Xanax but she is out. She was recently seen and evaluated at [facility] called EMS today because she was having anxiety. She states she feels like she needs to be admitted to the hospital today. She denies any suicidal or homicidal ideation [] Review of Systems: Review of Systems: Constitutional: Denies fever or chills Eyes: Denies change in visual acuity HENT: Denies nasal congestion or sore throat Respiratory: States she cannot get a deep breath Cardiovascular: Denies chest pain or edema GI: Denies abdominal pain, nausea, vomiting, bloody stools or diarrhea : Denies dysuria Musculoskeletal: Denies back pain or joint pain Integument: Denies rash Neurologic: Denies headache, focal weakness or sensory changes Endocrine: Denies polyuria or polydipsia Lymphatic: Denies swollen glands Psychiatric: Reports anxiety Heart Score: Risk Factors: Risk Factors: DM, Current or recent (<one month) smoker, HTN, HLP, family history of CAD, obesity. Risk Scores: Score 0 - 3: 2.5% MACE over next 6 weeks - Discharge Home Score 4 - 6: 20.3% MACE over next 6 weeks - Admit for Clinical Observation Score 7 - 10: 72.7% MACE over next 6 weeks - Early Invasive Strategies Allergies: Allergies: Allergies Coded Allergies Type Severity Reaction Last Updated Verified Milk Containing Products Allergy Intermediate 04/30/20 Yes lisinopril Allergy Intermediate 04/30/20 No Physical Exam: PE: Constitutional: Well developed, well nourished, no acute distress, non-toxic appearance. [] HENT: Normocephalic, atraumatic, bilateral external ears normal, oropharynx moist, no oral exudates, nose normal. [] Eyes: PERRLA, EOMI, conjunctiva normal, no discharge. [] Neck: Normal range of motion, no tenderness, supple, no stridor. [] Cardiovascular:Heart rate regular rhythm, no murmur [] Lungs & Thorax: Bilateral breath sounds clear to auscultation [] Abdomen: Bowel sounds normal, soft, no tenderness, no masses, no pulsatile masses. [] Skin: Warm, dry, no erythema, no rash. [] Back: No tenderness, no CVA tenderness. [] Extremities: No tenderness, no cyanosis, no clubbing, ROM intact, no edema. [] Neurologic: Alert and oriented X 3, normal motor function, normal sensory function, no focal deficits noted. [] Psychologic: Anxious, very unusual affect [] EKG: EKG: [] Radiology/Procedures: Radiology/Procedures: [] Course & Med Decision Making: Course & Med Decision Making Pertinent Labs and Imaging studies reviewed. (See chart for details) [ED course: Evaluation reveals a 30-year-old anxious female. When she stated she wanted to be admitted to the hospital today for her anxiety I explained that we would not be able to admit her today for that she continued to deny suicidal or homicidal ideation. When I told her that we could not admit her to the hospital she refused to give me any further history. I asked her if she wanted her medications refilled she would not respond.] Dragon Disclaimer: Dragon Disclaimer: This electronic medical record was generated, in whole or in part, using a voice recognition dictation system. Departure Departure: Impression: Primary Impression: Anxiety about health Disposition: 01 HOME/RESIDENCE PRIOR TO ADM Condition: STABLE Referrals: DEX COLON MD (PCP) Patient Instructions: Anxiety and Panic Attacks Additional Instructions: You need to follow with the guidance center or your primary care physician in the very near future to make sure that your medication is appropriately titrated Justification of Admission: Justification of Admission: Justification of Admission Dx: DAISHA Nguyễn DO May 25, 2020 14:46
[2020-05-25 15:15] VITALS: BP 176/156
== END 2020-05-25 14:56 | disposition home or self-care (01) ==
LOC: ER 14:33
DX: F41.9 Anxiety disorder, unspecified (principal); F32.9 Major depressive disorder, single episode, unspecified; I10 Essential (primary) hypertension; Z88.8 Allergy status to other drugs, medicaments and biological substances; Z91.011 Allergy to milk products
CPT/HCPCS: 99283

== ENCOUNTER 2020-06-02 10:35 | Emergency (ER) | payer MEDICAID ==
[~2020-06-02] VITALS: Ht 160 cm; Wt 98.7 kg
[2020-06-02 10:35] VITALS: BP 161/107
--- NOTE | 2020-06-02 11:08 | PHYS DOC ---
Past History Past Medical History: Anxiety, Depression, Hypertension, Other Additional Past Medical Histor: Castleman's disease, Lymphoproliferateive disorder Past Surgical History: Other Additional Past Surgical Histo: right fallopian tube and right ovary removed in september Smoking: Non-smoker Alcohol Use: None Drug Use: None General Adult EDM: Chief Complaint: EARACHE/EAR PAIN HPI: HPI: 30-year-old female presents via EMS with bilateral ear pain. Patient was just released from another hospital for urinary tract infection high blood pressure. She was on antibiotics for her urinary tract infection. She did stop those 2 days ago. She comes in today because she has had bilateral ear pain. She says that it is constant. She also states hearing voices telling her to get up and do something. Patient states that she is also 5 or 6 weeks and "wants the baby checked out". She denies any vaginal discharge, spotting, or abdominal pain. The patient has a psychiatric history it is supposed to follow-up with the guidance Center. She also has hypertension for which she is supposed to take medications. She has not picked up her prescription yet. She denies fever chills. Review of Systems: Review of Systems: Constitutional: Denies fever or chills Eyes: Denies change in visual acuity HENT: Bilateral ear pain Respiratory: Denies cough or shortness of breath Cardiovascular: Denies chest pain or edema GI: . Denies abdominal pain, nausea, vomiting, bloody stools or diarrhea : Denies dysuria Musculoskeletal: Denies back pain or joint pain Integument: Denies rash Neurologic: Denies headache, focal weakness or sensory changes Endocrine: Denies polyuria or polydipsia Lymphatic: Denies swollen glands Psychiatric: Hearing voices. Heart Score: Risk Factors: Risk Factors: DM, Current or recent (<one month) smoker, HTN, HLP, family history of CAD, obesity. Risk Scores: Score 0 - 3: 2.5% MACE over next 6 weeks - Discharge Home Score 4 - 6: 20.3% MACE over next 6 weeks - Admit for Clinical Observation Score 7 - 10: 72.7% MACE over next 6 weeks - Early Invasive Strategies Allergies: Allergies: Allergies Coded Allergies Type Severity Reaction Last Updated Verified Milk Containing Products Allergy Intermediate 04/30/20 Yes lisinopril Allergy Intermediate 04/30/20 No Physical Exam: PE: Constitutional: Well developed, well nourished, no acute distress, non-toxic appearance. [] HENT: Normocephalic, atraumatic, bilateral external ears normal, oropharynx moist, no oral exudates, nose normal. Bilateral tympanic membranes normal. [] Eyes: PERRLA, EOMI, conjunctiva normal, no discharge. [] Neck: Normal range of motion, no tenderness, supple, no stridor. [] Cardiovascular: Heart rate regular rhythm, no murmur [] Lungs & Thorax: Bilateral breath sounds clear to auscultation [] Abdomen: Bowel sounds normal, soft, no tenderness, no masses, no pulsatile masses. [] Skin: Warm, dry, no erythema, no rash. [] Back: No tenderness, no CVA tenderness. [] Extremities: No tenderness, no cyanosis, no clubbing, ROM intact, no edema. [] Neurologic: Alert and oriented X 3, normal motor function, normal sensory function, no focal deficits noted. [] Psychologic: Auditory hallucinations. Affect flat, mood normal. [] Current Patient Data: Vital Signs: Vital Signs Date Time Temp Pulse Resp B/P (MAP) Pulse Ox O2 Delivery O2 Flow Rate FiO2 06/02/20 10:35 99.5 81 20 161/107 (125) 97 Room Air EKG: EKG: [] Radiology/Procedures: Radiology/Procedures: [] Course & Med Decision Making: Course & Med Decision Making Pertinent Labs and Imaging studies reviewed. (See chart for details) Not sure what parts of the patient's story are real and what are not. I do not see any problems with her ears. She does tell me she has seasonal allergies and has not been taking anything. I will give her 650 of Tylenol for the pain and 10 mg of cetirizine to see if this helps with her ear problem. I told the patient that even an ultrasound would not tell us anything with her this early. She stated understanding. She did not request the ultrasound. I offered to do a blood test to give her an idea how far along she is and she declined. As far as the voices go, the patient has follow-up scheduled with the guidance Center. I encouraged her to keep this appointment. I also strongly encouraged her to get her blood pressure medications and take them as prescribed. She is stable for discharge at this time. [] Dragon Disclaimer: Dragon Disclaimer: This electronic medical record was generated, in whole or in part, using a voice recognition dictation system. Departure Departure: Impression: Primary Impression: Ear pain Qualified Codes: H92.03 - Otalgia, bilateral Additional Impressions: Auditory hallucinations Hypertension Qualified Codes: I10 - Essential (primary) hypertension Disposition: HOME/RESIDENCE PRIOR TO ADM Condition: STABLE Referrals: DEX COLON MD (PCP) Patient Instructions: Hallucinations and Delusions, Hypertension, [id number] Justification of Admission: Justification of Admission: Justification of Admission Dx: N/A DONNIE SHELTON DO Jun 02, 2020 11:08
[2020-06-02] MEDS: CETIRIZINE HCL 10 MG TABLET PO STA (11:15)
[2020-06-02] MEDS: ACETAMINOPHEN 325 MG TABLET PO ONE (11:16)
[2020-06-03] MEDS ORDERED: CEPH-264 PO (03:45)
[2020-06-03] MEDS ORDERED: labetolol (04:18)
== END 2020-06-02 11:19 | disposition home or self-care (01) ==
LOC: ER 10:35
DX: O26.891 Other specified pregnancy related conditions, first trimester (principal); H92.03 Otalgia, bilateral; R44.0 Auditory hallucinations; O16.1 Unspecified maternal hypertension, first trimester; O23.41 Unspecified infection of urinary tract in pregnancy, first trimester; O99.341 Other mental disorders complicating pregnancy, first trimester; F41.9 Anxiety disorder, unspecified; F32.9 Major depressive disorder, single episode, unspecified; Z3A.01 Less than 8 weeks gestation of pregnancy; Z88.8 Allergy status to other drugs, medicaments and biological substances; Z91.011 Allergy to milk products
CPT/HCPCS: 99283

== ENCOUNTER 2020-06-03 02:05 | Emergency (ER) | payer MEDICAID ==
[~2020-06-03] VITALS: Ht 160 cm; Wt 102.5 kg
[2020-06-03] MEDS: hydrOXYzine HCL 25 MG TABLET PO PRN (03:11)
--- NOTE | 2020-06-03 03:22 | PHYS DOC ---
Past History Past Medical History: Anxiety, Depression, Hypertension, Other Additional Past Medical Histor: Castleman's disease, Lymphoproliferateive disorder Past Surgical History: Other Additional Past Surgical Histo: right fallopian tube and right ovary removed in september-due to cyst Smoking: Non-smoker Alcohol Use: None Drug Use: None Adult General Chief Complaint Chief Complaint: ANXIETY/PANIC ATTACK HPI HPI Patient is a 30 year old female who presents with anxiety. Patient states that she has been anxious for the last 2 weeks and she found out that she was . She has been trying to calm herself down at home. She denies any o ther complaints. She was seen here earlier today for an earache. Review of Systems Review of Systems General: Denies fever, chills, sweats, fatigue Eyes: Denies drainage, blurred vision, eye redness HENT: Denies rhinorrhea, sore throat, earache Respiratory: Denies cough, shortness of breath, wheezing Cardiac: Denies edema, palpitations, chest pain GI: Denies abdominal pain, Nausea, vomiting MSK: Denies back pain, neck pain Skin: Denies rash, jaundice Neuro: Denies headache, dizziness Psychiatric: Denies SI/HI. Reports anxiety Current Medications Current Medications Current Medications Medications (Trade) Dose Ordered Sig/Andrzej Start Time Stop Time Status Last Admin Dose Admin Hydroxyzine HCl (Atarax) 25 mg 1X PRN PRN 06/03/20 03:00 06/04/20 02:59 06/03/20 03:11 25 MG Allergies Allergies Allergies Coded Allergies Type Severity Reaction Last Updated Verified Milk Containing Products Allergy Intermediate 06/03/20 Yes lisinopril Allergy Intermediate 06/03/20 No Physical Exam Physical Exam General: Awake, alert, NAD. Well Nourished, well hydrated. Cooperative HEENT: Atraumatic, EOMI, PERRL, airway patent, moist oral mucosa Neck: Supple, trachea midline Respiratory: CTA bilaterally, normal effort, no wheezing/crackles CV: RRR, no murmur, cap refill <2 GI: Soft, nondistended, nontender, no masses MSK: No obvious deformities Skin: Warm, dry, intact Neuro: A&O x3, speech NL, sensory and motor grossly intact, no focal deficits Psych: Flat affect, not suicidal or homicidal, does not appear to be paranoid. She is not responding to internal stimuli. Current Patient Data Vital Signs Vital Signs Date Time Temp Pulse Resp B/P (MAP) Pulse Ox O2 Delivery O2 Flow Rate FiO2 06/03/20 02:10 98.3 88 20 163/111 (128) 98 Room Air EKG EKG [] Radiology/Procedures Radiology/Procedures [] Course & Med Decision Making Course & Med Decision Making Pertinent Labs and Imaging studies reviewed. (See chart for details) Patient is 30-year-old female presents to the emergency room with anxiety. UA will be done as patient is . Patient was given hydroxyzine. Patient's test results and vitals while in the ED were fully reviewed and discussed with the patient. Patient is stable and at this time does not need admission to the hospital. We have discussed strict return precautions and the importance of following up with their Primary Care Physician. Patient stated understanding and was given an opportunity to ask any questions. Patient is in agreement with plan. Dragon Disclaimer Dragon Disclaimer This electronic medical record was generated, in whole or in part, using a voice recognition dictation system. Departure Departure: Impression: Primary Impression: Anxiety Disposition: 01 HOME/RESIDENCE PRIOR TO ADM Condition: STABLE Referrals: DEX COLON MD (PCP) Patient Instructions: ABCs of , Anxiety and Panic Attacks, [id number] Scripts Cephalexin (KEFLEX) 500 Mg Capsule 1 CAP PO BID for UTI for 7 Days, #14 CAP 0 Refills Prov: JONATHAN COOK MD 06/03/20 Justification of Admission: Justification of Admission: Justification of Admission Dx: No JONATHAN COOK MD Jun 03, 2020 03:22
[2020-06-03 03:36] LABS: BACTERIA,URINE FEW /HPF (0-FEW); BILIRUBIN,URINE NEG (NEG); CLARITY,URINE CLEAR; COLOR,URINE YELLOW; GLUCOSE,URINE NEG (NEG); NITRITE,URINE NEG (NEG); RBC,URINE OCC /HPF (0-2); SQUAMOUS EPITHELIAL CELL,UR MOD /LPF; UROBILINOGEN,URINE 0.2 mg/dL (0.2 mg/dL); WBC,URINE OCC /HPF (0-4)
[2020-06-03 03:45] VITALS: BP 155/104
[2020-06-03] MEDS ORDERED: CEPH-264 PO (03:45)
[2020-06-03] MEDS ORDERED: labetolol (04:18)
== END 2020-06-03 03:53 | disposition home or self-care (01) ==
LOC: ER 02:05
DX: O99.341 Other mental disorders complicating pregnancy, first trimester (principal); F41.9 Anxiety disorder, unspecified; F32.9 Major depressive disorder, single episode, unspecified; I10 Essential (primary) hypertension; Z3A.00 Weeks of gestation of pregnancy not specified; Z88.8 Allergy status to other drugs, medicaments and biological substances
CPT/HCPCS: 81001; 81025; 99283

== ENCOUNTER 2020-06-15 12:52 | Emergency (ER) | payer MEDICAID ==
[~2020-06-15] VITALS: Ht 160 cm; Wt 96.9 kg
[~2020-06-15 12:52] MED LIST changes: +labetolol
--- NOTE | 2020-06-15 13:22 | PHYS DOC ---
Past History Past Medical History: Anxiety, Depression, Hypertension, Other Additional Past Medical Histor: Castleman's disease, Lymphoproliferateive disorder Past Surgical History: Other Additional Past Surgical Histo: right fallopian tube and right ovary removed in september-due to cyst Smoking: Non-smoker Alcohol Use: None Drug Use: None General Adult EDM: Chief Complaint: HALLUCINATIONS AUDIBLE/VISUAL HPI: HPI: Patient is a 30 year old female who presents via EMS for evaluation of multiple complaints. Patient states that she has been having a lot of anxiety and has been hearing voices. She states he is under a lot of stress. Patient is tearful and does not want to provide a lot of history initially. Patient states she does live locally. She does have a prior psychiatric history and has been overnight to many facilities including [facility] as well as possible. Patient states she has been diagnosed with longstanding anxiety. Furthermore patient states she is about 2 months . Patient is a 2 para 1. Patient denies any related complaints. Review of Systems: Review of Systems: Constitutional: Denies fever or chills Eyes: Denies change in visual acuity HENT: Denies nasal congestion or sore throat Respiratory: Denies cough or shortness of breath Cardiovascular: Denies chest pain or edema GI: Denies abdominal pain, nausea, vomiting, bloody stools or diarrhea : Denies dysuria Musculoskeletal: Denies back pain or joint pain Integument: Denies rash Neurologic: Denies headache, focal weakness or sensory changes Endocrine: Denies polyuria or polydipsia Lymphatic: Denies swollen glands Psychiatric: has depression and anxiety Heart Score: Risk Factors: Risk Factors: DM, Current or recent (<one month) smoker, HTN, HLP, family histo ry of CAD, obesity. Risk Scores: Score 0 - 3: 2.5% MACE over next 6 weeks - Discharge Home Score 4 - 6: 20.3% MACE over next 6 weeks - Admit for Clinical Observation Score 7 - 10: 72.7% MACE over next 6 weeks - Early Invasive Strategies Allergies: Allergies: Allergies Coded Allergies Type Severity Reaction Last Updated Verified Milk Containing Products Allergy Intermediate 06/03/20 Yes lisinopril Allergy Intermediate 06/03/20 No Physical Exam: PE: Constitutional: Well developed, well nourished, moderate acute distress, non- toxic appearance. [] HENT: Normocephalic, atraumatic, bilateral external ears normal, oropharynx moist, no oral exudates, nose normal. [] Eyes: PERRL, EOMI, conjunctiva normal, no discharge. [] Neck: Normal range of motion, no tenderness, supple, no stridor. [] Cardiovascular:Heart rate regular rhythm, no murmur [] Lungs & Thorax: Bilateral breath sounds clear to auscultation [] Abdomen: Bowel sounds normal, soft, no tenderness, no masses, no pulsatile masses. [] Skin: Warm, dry, no erythema, no rash. [] Back: No tenderness, no CVA tenderness. [] Extremities: No tenderness, no cyanosis, ROM intact, no edema. [] Neurologic: Alert and oriented, normal motor function, normal sensory function, no focal deficits noted. [] Psychologic: Affect abnormal, judgement abnormal, mood highly anxious and tearful, patient is complaining of hallucinations [] Current Patient Data: Labs: Laboratory Tests Test 06/15/20 13:16 06/15/20 13:19 White Blood Count 5.2 x10^3/uL Red Blood Count 4.51 x10^6/uL Hemoglobin 14.0 g/dL Hematocrit 40.7 % Mean Corpuscular Volume 90 fL Mean Corpuscular Hemoglobin 31 pg Mean Corpuscular Hemoglobin Concent 34 g/dL Red Cell Distribution Width 13.0 % Platelet Count 161 x10^3/uL Neutrophils (%) (Auto) 76 % Lymphocytes (%) (Auto) 16 % Monocytes (%) (Auto) 7 % Eosinophils (%) (Auto) 1 % Basophils (%) (Auto) 0 % Neutrophils # (Auto) 3.9 x10^3uL Lymphocytes # (Auto) 0.8 x10^3/uL Monocytes # (Auto) 0.4 x10^3/uL Eosinophils # (Auto) 0.0 x10^3/uL Basophils # (Auto) 0.0 x10^3/uL Maternal Serum HCG Beta Subunit 67713 mIU/mL Sodium Level 137 mmol/L Potassium Level 3.4 mmol/L Chloride Level 103 mmol/L Carbon Dioxide Level 21 mmol/L Anion Gap 13 Blood Urea Nitrogen 4 mg/dL Creatinine 0.7 mg/dL Estimated GFR (Cockcroft-Gault) 119.7 BUN/Creatinine Ratio 6 Glucose Level 116 mg/dL Calcium Level 8.5 mg/dL Total Bilirubin 0.3 mg/dL Aspartate Amino Transf (AST/SGOT) 13 U/L Alanine Aminotransferase (ALT/SGPT) 35 U/L Alkaline Phosphatase 54 U/L Total Protein 7.2 g/dL Albumin 3.5 g/dL Albumin/Globulin Ratio 0.9 Salicylates Level < 2.8 mg/dL Salicylate Last Dose Date Unknown Salicylate Last Dose Time Unknown Acetaminophen Level < 2 mcg/mL Acetaminophen Last Dose Date Unknown Acetaminophen Last Dose Time Unknown Ethyl Alcohol Level < 10 mg/dL Urine Collection Type Unknown Urine Color Yellow Urine Clarity Hazy Urine pH 5.5 Urine Specific Merna 1.010 Urine Protein Neg Urine Glucose (UA) Neg mg/dL Urine Ketones (Stick) Neg mg/dL Urine Blood Neg Urine Nitrite Neg Urine Bilirubin Neg Urine Urobilinogen Dipstick 0.2 mg/dL Urine Leukocyte Esterase Small Urine RBC Occ /HPF Urine WBC 1-4 /HPF Urine Squamous Epithelial Cells Many /LPF Urine Bacteria 0 /HPF Urine Opiates Screen Neg Urine Methadone Screen Neg Urine Barbiturates Neg Urine Phencyclidine Screen Neg Urine Amphetamine/Methamphetamine Neg Urine Benzodiazepines Screen Neg Urine Cocaine Screen Neg Urine Cannabinoids Screen Neg Urine Ethyl Alcohol Neg Vital Signs: Vital Signs Date Time Temp Pulse Resp B/P (MAP) Pulse Ox O2 Delivery O2 Flow Rate FiO2 06/15/20 12:57 99.0 76 14 151/93 (112) 98 Room Air EKG: EKG: [] Radiology/Procedures: Radiology/Procedures: [] Course & Med Decision Making: Course & Med Decision Making Pertinent Labs and Imaging studies reviewed. (See chart for details) [] Yuriy Disclaimer: Yuriy Disclaimer: This electronic medical record was generated, in whole or in part, using a voice recognition dictation system. [id number] psychiatric busboy called to discuss case. 1634 we have talked to patient multiple times. She states she no longer wishes to wait for a psychiatric assessment. I do not have criteria or grounds to hold her against her will or for involuntary commitment. She clearly states that she is not suicidal homicidal at this time. Patient remains somewhat anxious. Medically she is cleared for discharge. She is advised that should she change her mind she could return at any time. Patient left AGAINST MEDICAL ADVICE Departure Departure: Impression: Primary Impression: Anxiety Additional Impressions: Hallucinations Disposition: AGAINST MEDICAL ADVICE Condition: STABLE Referrals: DEX COLON MD (PCP) Patient Instructions: ABCs of , Anxiety and Panic Attacks, Hallucinogens Additional Instructions: You have opted to leave AGAINST MEDICAL ADVICE. Call and see your counselor at the guidance Center as soon as possible. You are welcome return anytime you change your mind about seeking medical treatment Justification of Admission: Justification of Admission: Justification of Admission Dx: N/A MELLISSA DOE DO Jun 15, 2020 13:22
[2020-06-15 13:57] LABS: BASO % 0 % (0-3); EOS % 1 % (0-3); HEMATOCRIT 40.7 % (36.0-47.0); LYMPH # 0.8 x10^3/uL (1.0-4.8); LYMPH % 16 % (24-48); MEAN CORPUSCULAR HEMOGLOBIN 31 pg (25-35); MEAN CORPUSCULAR HGB CONC 34 g/dL (31-37); MEAN CORPUSCULAR VOLUME 90 fL (79-100); MONO # 0.4 x10^3/uL (0.0-1.1); MONO % 7 % (0-9); NEUT # 3.9 x10^3uL (1.8-7.7); NEUT % 76 % (31-73); PLATELET COUNT 161 x10^3/uL (140-400); RED BLOOD COUNT 4.51 x10^6/uL (3.50-5.40); WHITE BLOOD COUNT 5.2 x10^3/uL (4.0-11.0)
[2020-06-15 14:08] LABS: CALCIUM 8.5 mg/dL (8.5-10.1); CREATININE 0.7 mg/dL (0.6-1.0); GFR 119.7; POTASSIUM 3.4 mmol/L (3.5-5.1)
[2020-06-15 14:11] LABS: BARBITURATES NEG (NEG); BENZODIAZEPINES NEG (NEG); CANNABINOIDS NEG (NEG); COCAINE NEG (NEG); METHADONE NEG (NEG); OPIATES NEG (NEG); PHENCYCLIDINE NEG (NEG)
[2020-06-15 14:12] LABS: AMPHETAMINE/METHAMPHETAMINE NEG (NEG)
[2020-06-15 14:15] LABS: ALBUMIN 3.5 g/dL (3.4-5.0); ALBUMIN/GLOBULIN RATIO 0.9 (1.0-1.7); TOTAL BILIRUBIN 0.3 mg/dL (0.2-1.0); TOTAL PROTEIN 7.2 g/dL (6.4-8.2)
[2020-06-15 14:17] LABS: SALIC < 2.8 mg/dL (2.8-20.0)
[2020-06-15 14:18] LABS: ACETAMIN < 2 mcg/mL (10-30); ETHANOL < 10 mg/dL (0-10)
[2020-06-15 14:21] LABS: BACTERIA,URINE 0 /HPF (0-FEW); BILIRUBIN,URINE NEG (NEG); CLARITY,URINE HAZY; COLOR,URINE YELLOW; GLUCOSE,URINE NEG (NEG); NITRITE,URINE NEG (NEG); RBC,URINE OCC /HPF (0-2); SQUAMOUS EPITHELIAL CELL,UR MANY /LPF; UROBILINOGEN,URINE 0.2 mg/dL (0.2 mg/dL)
[2020-06-15 16:45] VITALS: BP 126/76
== END 2020-06-15 16:44 | disposition left against medical advice (07) ==
LOC: ER 12:52
DX: O99.341 Other mental disorders complicating pregnancy, first trimester (principal); R44.0 Auditory hallucinations; F32.9 Major depressive disorder, single episode, unspecified; O16.1 Unspecified maternal hypertension, first trimester; Z88.8 Allergy status to other drugs, medicaments and biological substances; Z91.011 Allergy to milk products; Z3A.08 8 weeks gestation of pregnancy
CPT/HCPCS: 36415; 80053; 80307; 80329; 81001; 84702; 85025; 87086; 99283; G0480

== ENCOUNTER 2020-06-17 18:49 | Emergency (ER) | payer MEDICAID ==
[~2020-06-17] VITALS: Ht 160 cm; Wt 96.9 kg
--- NOTE | 2020-06-17 18:56 | PHYS DOC ---
Past History Past Medical History: Anxiety, Depression, Hypertension, Other Additional Past Medical Histor: Castleman's disease, Lymphoproliferateive disorder Past Surgical History: Other Additional Past Surgical Histo: right fallopian tube and right ovary removed in september-due to cyst Smoking: Non-smoker Alcohol Use: None Drug Use: None Adult General Chief Complaint Chief Complaint: ANXIETY/PANIC ATTACK HPI HPI Patient is a 30-year-old female who presents by way of EMS for anxiety. Patient reports anxiety and delusions that others can hear her thoughts. This is a chronic problem, reports these symptoms have been going on for the last several months to year. Patient called EMS and attempt to be transported to [facility]; however, patient was rerouted to our facility for acute evaluation. On arrival, patient reported her anxiety had resolved. She reported continued paranoid thoughts that others could hear her thoughts but had no concerning auditory hallucinations, visual hallucinations, homicidal or suicidal ideation or thoughts of self-harm. Patient admits being 2 months . She admits having initial ultrasonography appointment at [facility]. Patient reports that she wanted to go to [facility] to be admitted as she did not want to go home. She reports wanting to go to [facility] so she can have her baby taken care of and also be admitted inpatient for further psychiatric help. She reports she has history of outpatient treatment but it does not work prompting her to request transfer for inpatient treatment. Patient denies being in any crisis. Reports only medications used in outpatient setting her vitamins and labetalol for hypertension, she has not been taking these for the last 1 month due to forgetting to fill her prescription Review of Systems Review of Systems Fourteen body systems of review of systems have been reviewed. See HPI for pertinent positives and negative responses, other [place] all other systems are negative, non-pertinent or non-contributory Allergies Allergies Allergies Coded Allergies Type Severity Reaction Last Updated Verified Milk Containing Products Allergy Intermediate 06/03/20 Yes lisinopril Allergy Intermediate 06/03/20 No Physical Exam Physical Exam Constitutional: Well developed, well nourished, no acute distress, non-toxic appearance. HENT: Normocephalic, atraumatic, bilateral external ears normal, oropharynx moist, no oral exudates, nose normal. Eyes: PERRLA, EOMI, conjunctiva normal, no discharge. Neck: Normal range of motion, no tenderness, supple, no stridor. Cardiovascular: Heart rate regular, sinus rhythm, no murmurs rubs or gallops Lungs & Thorax: Bilateral breath sounds clear to auscultation Abdomen: Bowel sounds normal, soft, no tenderness, no masses, no pulsatile masses. Nonsurgical abdomen, no peritoneal signs Skin: Warm, dry, no erythema, no rash. Back: No tenderness, no CVA tenderness. Extremities: No tenderness, no cyanosis, no clubbing, ROM intact, no edema. Neurologic: Alert and oriented X 3, grossly normal motor & sensory function, no focal deficits noted. Psychologic: Flat affect, depressed mood, no hallucinations, admits paranoid thoughts Current Patient Data Vital Signs Vital Signs Date Time Temp Pulse Resp B/P (MAP) Pulse Ox O2 Delivery O2 Flow Rate FiO2 06/17/20 20:14 98.0 105 18 126/76 (93) 99 EKG EKG [] Radiology/Procedures Radiology/Procedures [] Course & Med Decision Making Course & Med Decision Making Patient seen on immediate EMS arrival Airway patent, breathing unlabored, blood pressure elevated on initial arrival approximately 180/1 100s with other vital signs non-concerning Comprehensive history and physical exam obtained 100 mg labetalol administered with good improvement in patient's blood pressure, she reports being able to pick this medication up tomorrow at pharmacy as she has been out for the last 1 month Attempted to obtain heart tones which was unsuccessful. Patient unsure how far along she is, reports being in first trimester and has not established with WATER TENDER yet despite recent ultrasonography visit Patient's reason for presentation and persistence in trying to get transferred to [facility] non-concerning and appeared malingering Discussed with patient that she was was not in immediate crisis, is not a harm to others or self at this time and that there was no medical indication for transfer to [facility] When explaining this, patient asked, " well if I am suicidal can you send me?". She then admitted to suicidal ideation but denied any plan Discussed with patient that because of this statement, I would like our local psychiatric crisis team to evaluate patient while in ER. Patient did not want this and retracted statements of feeling suicidal further admitting her only his intent for today's EMS call was for transportation to [facility] Ultimately, patient with full capacity requested for discharge home without fur ther intervention. This happened prior to crisis team evaluation I agreed with patient's request for discharge, I feel that she is in no apparent harm to others or self if discharged home at this time. She was able to demonstrate forward thinking regarding will to live for her family and now that she is . Patient's initial called to EMS was due to patient's intent on being transported to [facility], it is unclear if she actually wanted medical care once delivered to that location. I educated patient on malingering behavior and misuse of healthcare system/ambulances. Nonetheless, I did provide patient with local resources should she feel she is in crisis for immediate evaluation and further psychiatric help. Strict return precautions to our ER wa s discussed with good understanding, all questions and concerns addressed prior to ER departure in stable condition Dragon Disclaimer Dragon Disclaimer This electronic medical record was generated, in whole or in part, using a voice recognition dictation system. 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 You have been educated on the local crisis centers that will be able to evaluate you and keep you safe should crisis arise Please feel free to return to our emergency department if there is anything more we can do for you Justification of Admission: Justification of Admission: Justification of Admission Dx: N/A Problem Qualifiers ADITI TANNER DO Jun 17, 2020 18:56
[2020-06-17 20:14] VITALS: BP 126/76
[2020-06-17] MEDS ORDERED: LABETALOL HCL 100 MG TABLET PO SCH (21:00)
== END 2020-06-17 20:12 | disposition home or self-care (01) ==
LOC: ER 18:49
DX: O99.341 Other mental disorders complicating pregnancy, first trimester (principal); F41.9 Anxiety disorder, unspecified; F32.9 Major depressive disorder, single episode, unspecified; O16.2 Unspecified maternal hypertension, second trimester; Z3A.00 Weeks of gestation of pregnancy not specified; Z88.8 Allergy status to other drugs, medicaments and biological substances; Z91.011 Allergy to milk products
CPT/HCPCS: 99283

== ENCOUNTER 2020-06-24 11:58 | Emergency (ER) | payer MEDICAID ==
[~2020-06-24] VITALS: Ht 160 cm; Wt 96.9 kg
[2020-06-24] MEDS ORDERED: PNV1TABL25 PO (12:48)
--- NOTE | 2020-06-24 12:48 | PHYS DOC ---
Past History Past Medical History: Anxiety, Depression, Hypertension, Other Additional Past Medical Histor: Castleman's disease, Lymphoproliferateive disorder Past Surgical History: Other Additional Past Surgical Histo: right fallopian tube and right ovary removed in september-due to cyst Smoking: Non-smoker Alcohol Use: None Drug Use: None General Adult EDM: Chief Complaint: SHORTNESS OF BREATH HPI: HPI: 30-year-old female presents to emergency department for reports of anxiety attacks and panic attacks that are occurring from hearing voices that are "hearing my thoughts and following me everywhere ago ". She states that this is been going on for some time now, but does not give an exact time.. The patient has a flat affect and is very slow to respond to questions. The patient is also 3 months and is worried about the health of her baby. She has received no care up to this point and is not on any multi vitamins. The patient has not lost consciousness or blacked out as result of these panic contacts. Patient states that she hears voices that are coming out of the "plugs in the [place] ". They tell her that she is stupid and "things that are not true ". She has been seen in the emergency department multiple times for the same symptoms, but has never followed up with a psychiatrist. Significant time was spent in the room speaking to the patient to try to find what we could do to help her with these psychiatric symptoms, but the patient refuses to meet with any mental health worker. Review of Systems: Review of Systems: Constitutional: Denies fever or chills Eyes: Denies redness or eye pain HENT: Denies nasal congestion or sore throat Respiratory: Denies cough or reports shortness of breath Cardiovascular: Denies chest pain or palpitations GI: Denies abdominal pain, nausea, or vomiting : Denies dysuria or hematuria Musculoskeletal: Denies back pain or joint pain Integument: Denies rash or skin lesions Neurologic: Denies headache, focal weakness or sensory changes Complete systems were reviewed and found to be within normal limits, except as documented in this note. Heart Score: Risk Factors: Risk Factors: DM, Current or recent (<one month) smoker, HTN, HLP, family history of CAD, obesity. Risk Scores: Score 0 - 3: 2.5% MACE over next 6 weeks - Discharge Home Score 4 - 6: 20.3% MACE over next 6 weeks - Admit for Clinical Observation Score 7 - 10: 72.7% MACE over next 6 weeks - Early Invasive Strategies Allergies: Allergies: Allergies Coded Allergies Type Severity Reaction Last Updated Verified Milk Containing Products Allergy Intermediate 06/03/20 Yes lisinopril Allergy Intermediate 06/03/20 No Physical Exam: PE: Constitutional: Well developed, well nourished, no acute distress, non-toxic appearance HENT: Normocephalic, atraumatic Eyes: PERRL, EOMI, conjunctiva normal, no discharge Neck: Normal range of motion, no tenderness, supple Lungs & Thorax: I did call chest equally bilaterally, no acute respiratory distress Abdomen: Soft, no tenderness Skin: Warm, dry, no erythema, no rash Back: No tenderness, no CVA tenderness Extremities: No tenderness, ROM intact, no edema Neurologic: Alert and oriented X 3, normal motor function, normal sensory function, no focal deficits noted Psychologic: Affect normal, judgment normal Current Patient Data: Vital Signs: Vital Signs Date Time Temp Pulse Resp B/P (MAP) Pulse Ox O2 Delivery O2 Flow Rate FiO2 06/24/20 12:00 87 18 158/110 (126) 98 Room Air EKG: EKG: [] Radiology/Procedures: Radiology/Procedures: [] Course & Med Decision Making: Course & Med Decision Making Patient was seen in the emergency department for psychiatric symptoms and shortness of breath. She states that she is hearing voices and having anxiety attacks. This patient has been in various emergency departments for the past few months for the same illness and complaints. The patient is 3 months with her second child. Significant time was spent in room with the patient discussing the different possibilities for her to receive psychiatric health care, but she refuses to accept any type of mental health care or mental health appointments in any location. She has not followed up with an OINTMENT MILL TENDER yet but does have an appointment set up. We discussed care with her and she is not taking multivitamins, so we are prescribing her a vitamin. We advised her to follow-up with the wellness center so that she can see psychiatric healthcare. Patient stable for discharge with outpatient follow-up with PCP. Discussed findings and plan with patient, who acknowledges understanding and agreement. [] Yuriy Disclaimer: Yuriy Disclaimer: This electronic medical record was generated, in whole or in part, using a voice recognition dictation system. Departure Departure: Impression: Primary Impression: Anxiety Additional Impression: Qualified Codes: Z34.90 - Encounter for supervision of normal , unspecified, unspecified trimester Disposition: 01 HOME/RESIDENCE PRIOR TO ADM Condition: STABLE Referrals: DEX COLON MD (PCP) Patient Instructions: ABCs of , Anxiety and Panic Attacks, [id number] Scripts Pnv Cmb#95/Ferrous Fumarate/Fa ( TABLET) 1 Each Tablet 1 TAB PO DAILY for for 30 Days, #30 TAB 0 Refills Prov: DAVID CRUZ DO 06/24/20 Justification of Admission: Justification of Admission: Justification of Admission Dx: N/A DAVID CRUZ DO Jun 24, 2020 12:48
[2020-06-24 12:52] VITALS: BP 140/95
== END 2020-06-24 12:53 | disposition home or self-care (01) ==
LOC: ER 11:58
DX: O99.341 Other mental disorders complicating pregnancy, first trimester (principal); F41.9 Anxiety disorder, unspecified; F32.9 Major depressive disorder, single episode, unspecified; O16.1 Unspecified maternal hypertension, first trimester; Z3A.12 12 weeks gestation of pregnancy; Z91.011 Allergy to milk products; Z88.8 Allergy status to other drugs, medicaments and biological substances
CPT/HCPCS: 99283

== ENCOUNTER 2020-06-25 08:35 | Emergency (ER) | payer MEDICAID ==
[~2020-06-25] VITALS: Ht 160 cm; Wt 96.9 kg
[~2020-06-25 08:35] MED LIST changes: +PNV1TABL25 PO
[2020-06-25 08:47] VITALS: BP 139/98
--- NOTE | 2020-06-25 09:15 | PHYS DOC ---
Past History Past Medical History: Anxiety, Depression, Hypertension, Other Additional Past Medical Histor: Castleman's disease, Lymphoproliferateive disorder Past Surgical History: Other Additional Past Surgical Histo: right fallopian tube and right ovary removed in september-due to cyst Smoking: Non-smoker Alcohol Use: None Drug Use: None General Adult EDM: Chief Complaint: ANXIETY/PANIC ATTACK HPI: HPI: 30-year-old female presents with anxiety and audible hallucinations. The patient is well-known to this emergency room. She was in this facility and another emergency room yesterday with the same complaints of general anxiety and hearing voices. She tells me that she hears voices all the time. They tell her negative things about herself. She is not suicidal or homicidal. She did take her prenatals that were prescribed yesterday. She has not taken them today. She is confirmed with serum hCG June 15 at this facility. She has an OB appointment scheduled but has not had that appointment yet. The patient really wants to go to mental health inpatient. There is nothing new between yesterday and today. Review of Systems: Review of Systems: Constitutional: Denies fever or chills Eyes: Denies change in visual acuity HENT: Denies nasal congestion or sore throat Respiratory: Denies cough or shortness of breath Cardiovascular: Denies chest pain or edema GI: Denies abdominal pain, nausea, vomiting, bloody stools or diarrhea : Denies dysuria Musculoskeletal: Denies back pain or joint pain Integument: Denies rash Neurologic: Denies headache, focal weakness or sensory changes Endocrine: Denies polyuria or polydipsia Lymphatic: Denies swollen glands Psychiatric: Anxiety, audible hallucinations Heart Score: Risk Factors: Risk Factors: DM, Current or recent (<one month) smoker, HTN, HLP, family history of CAD, obesity. Risk Scores: Score 0 - 3: 2.5% MACE over next 6 weeks - Discharge Home Score 4 - 6: 20.3% MACE over next 6 weeks - Admit for Clinical Observation Score 7 - 10: 72.7% MACE over next 6 weeks - Early Invasive Strategies Allergies: Allergies: Allergies Coded Allergies Type Severity Reaction Last Updated Verified Milk Containing Products Allergy Intermediate 06/03/20 Yes lisinopril Allergy Intermediate 06/03/20 No Physical Exam: PE: Constitutional: Well developed, well nourished, no acute distress, non-toxic appearance. [] HENT: Normocephalic, atraumatic, bilateral external ears normal, oropharynx moist, no oral exudates, nose normal. [] Eyes: PERRLA, EOMI, conjunctiva normal, no discharge. [] Neck: Normal range of motion, no tenderness, supple, no stridor. [] Cardiovascular: Heart rate regular rhythm, no murmur [] Lungs & Thorax: Bilateral breath sounds clear to auscultation [] Abdomen: Bowel sounds normal, soft, gravid uterus, no masses, no pulsatile masses. [] Skin: Warm, dry, no erythema, no rash. [] Back: No tenderness, no CVA tenderness. [] Extremities: No tenderness, no cyanosis, no clubbing, ROM intact, no edema. [] Neurologic: Alert and oriented X 3, normal motor function, normal sensory function, no focal deficits noted. [] Psychologic: Affect flat, mood depressed. [] Current Patient Data: Vital Signs: Vital Signs Date Time Temp Pulse Resp B/P (MAP) Pulse Ox O2 Delivery O2 Flow Rate FiO2 06/25/20 08:47 98.4 91 18 139/98 (112) 96 EKG: EKG: [] Radiology/Procedures: Radiology/Procedures: [] Course & Med Decision Making: Course & Med Decision Making Pertinent Labs and Imaging studies reviewed. (See chart for details) We spoke with Norberto at the [facility] about the patient. Given that she is not an immediate harm to herself or others and the fact that she is , there is not a facility that will take the patient inpatient. I talked with the patient about this. I explained that her best option right now is for continued outpatient treatment and taking part in her therapy. She wants to go to an inpatient facility, but she does not meet criteria. Given her recent visits and no change in complaints, I do not believe lab analysis are necessary at this time. She is stable for discharge for outpatient psychiatric therapy. [] Dragon Disclaimer: Dragon Disclaimer: This electronic medical record was generated, in whole or in part, using a voice recognition dictation system. Departure Departure: Impression: Primary Impression: Anxiety Additional Impressions: Qualified Codes: Z34.90 - Encounter for supervision of normal , un specified, unspecified trimester Auditory hallucination Disposition: HOME/RESIDENCE PRIOR TO ADM Condition: STABLE Referrals: DEX COLON MD (PCP) Patient Instructions: Hallucinations and Delusions, - First Trimester, [id number] Justification of Admission: Justification of Admission: Justification of Admission Dx: N/A DONNIE SHELTON DO Jun 25, 2020 09:15
== END 2020-06-25 09:20 | disposition home or self-care (01) ==
LOC: ER 08:35
DX: O99.341 Other mental disorders complicating pregnancy, first trimester (principal); F41.9 Anxiety disorder, unspecified; R44.0 Auditory hallucinations; O16.1 Unspecified maternal hypertension, first trimester; F32.9 Major depressive disorder, single episode, unspecified; Z3A.12 12 weeks gestation of pregnancy; Z91.011 Allergy to milk products; Z88.8 Allergy status to other drugs, medicaments and biological substances
CPT/HCPCS: 99283

== ENCOUNTER 2020-06-26 11:30 | Emergency (ER) | payer MEDICAID ==
[~2020-06-26] VITALS: Ht 160 cm; Wt 96.9 kg
[2020-06-26 11:30] VITALS: BP 145/95
--- NOTE | 2020-06-26 12:47 | PHYS DOC ---
Past History Past Medical History: Anxiety, Depression, Hypertension, Other Additional Past Medical Histor: Castleman's disease, Lymphoproliferateive disorder Past Surgical History: Other Additional Past Surgical Histo: right fallopian tube and right ovary removed in september-due to cyst Smoking: Non-smoker Alcohol Use: None Drug Use: None General Adult EDM: Chief Complaint: ANXIETY/PANIC ATTACK HPI: HPI: 30-year-old female returns the emergency room via EMS with continued anxiety. She also states that she is having pelvic pain. She denies dysuria. She denies vaginal discharge or troubles with defecation. She describes it as a constant sharp sensation. She states that her doctor told her that she should "have her kidneys checked". She denies fever or chills. This is the patient's third day in a row that she has been in this emergency room and she has been to 1 other emergency room. Review of Systems: Review of Systems: Constitutional: Denies fever or chills Eyes: Denies change in visual acuity HENT: Denies nasal congestion or sore throat Respiratory: Denies cough or shortness of breath Cardiovascular: Denies chest pain or edema GI: Denies abdominal pain, nausea, vomiting, bloody stools or diarrhea : Pelvic pain Musculoskeletal: Denies back pain or joint pain Integument: Denies rash Neurologic: Denies headache, focal weakness or sensory changes Endocrine: Denies polyuria or polydipsia Lymphatic: Denies swollen glands Psychiatric: anxiety Heart Score: Risk Factors: Risk Factors: DM, Current or recent (<one month) smoker, HTN, HLP, family history of CAD, obesity. Risk Scores: Score 0 - 3: 2.5% MACE over next 6 weeks - Discharge Home Score 4 - 6: 20.3% MACE over next 6 weeks - Admit for Clinical Observation Score 7 - 10: 72.7% MACE over next 6 weeks - Early Invasive Strategies Allergies: Allergies: Allergies Coded Allergies Type Severity Reaction Last Updated Verified Milk Containing Products Allergy Intermediate 06/03/20 Yes lisinopril Allergy Intermediate 06/03/20 No Physical Exam: PE: Constitutional: Well developed, obese, well nourished, no acute distress, non- toxic appearance. [] HENT: Normocephalic, atraumatic, bilateral external ears normal, oropharynx moist, no oral exudates, nose normal. [] Eyes: PERRLA, EOMI, conjunctiva normal, no discharge. [] Neck: Normal range of motion, no tenderness, supple, no stridor. [] Cardiovascular:Heart rate regular rhythm, no murmur [] Lungs & Thorax: Bilateral breath sounds clear to auscultation [] Abdomen: Bowel sounds normal, soft, no tenderness, no masses, no pulsatile masses. [] Skin: Warm, dry, no erythema, no rash. [] Back: No tenderness, no CVA tenderness. [] Extremities: No tenderness, no cyanosis, no clubbing, ROM intact, no edema. [] Neurologic: Alert and oriented X 3, normal motor function, normal sensory function, no focal deficits noted. [] Psychologic: Affect flat [] Current Patient Data: Vital Signs: Vital Signs Date Time Temp Pulse Resp B/P (MAP) Pulse Ox O2 Delivery O2 Flow Rate FiO2 06/26/20 11:30 99.1 94 16 145/95 (112) 98 Room Air EKG: EKG: [] Radiology/Procedures: Radiology/Procedures: [] Course & Med Decision Making: Course & Med Decision Making Pertinent Labs and Imaging studies reviewed. (See chart for details) The patient's labs are unremarkable. Her kidney function is normal. Her urinalysis is negative for infection. She still needs [facility]. She is stable for discharge at this time. [] Dragon Disclaimer: Dragon Disclaimer: This electronic medical record was generated, in whole or in part, using a voice recognition dictation system. Departure Departure: Impression: Primary Impression: Anxiety about health Disposition: 01 HOME/RESIDENCE PRIOR TO ADM Condition: STABLE Referrals: DEX COLON MD (PCP) Patient Instructions: Anxiety and Panic Attacks, [id number] Justification of Admission: Justification of Admission: Justification of Admission Dx: N/A DONNIE SHELTON DO Jun 26, 2020 12:47
[2020-06-26 13:24] LABS: BASO % 1 % (0-3); EOS % 1 % (0-3); HEMATOCRIT 40.1 % (36.0-47.0); HEMOGLOBIN 13.6 g/dL (12.0-15.5); LYMPH # 0.8 x10^3/uL (1.0-4.8); LYMPH % 16 % (24-48); MEAN CORPUSCULAR HEMOGLOBIN 31 pg (25-35); MEAN CORPUSCULAR HGB CONC 34 g/dL (31-37); MEAN CORPUSCULAR VOLUME 91 fL (79-100); MONO # 0.4 x10^3/uL (0.0-1.1); MONO % 9 % (0-9); NEUT # 3.6 x10^3uL (1.8-7.7); NEUT % 75 % (31-73); PLATELET COUNT 164 x10^3/uL (140-400); RED BLOOD COUNT 4.43 x10^6/uL (3.50-5.40); RED CELL DISTRIBUTION WIDTH 13.4 % (11.5-14.5); WHITE BLOOD COUNT 4.9 x10^3/uL (4.0-11.0)
[2020-06-26 13:40] LABS: CALCIUM 8.5 mg/dL (8.5-10.1); CREATININE 0.8 mg/dL (0.6-1.0); GFR 102.6; POTASSIUM 3.5 mmol/L (3.5-5.1)
[2020-06-26 13:46] LABS: ALBUMIN 3.4 g/dL (3.4-5.0); ALBUMIN/GLOBULIN RATIO 0.9 (1.0-1.7); TOTAL BILIRUBIN 0.4 mg/dL (0.2-1.0); TOTAL PROTEIN 7.1 g/dL (6.4-8.2)
[2020-06-26 13:59] LABS: BACTERIA,URINE 0 /HPF (0-FEW); BILIRUBIN,URINE NEG (NEG); CLARITY,URINE HAZY; COLOR,URINE YELLOW; GLUCOSE,URINE NEG (NEG); NITRITE,URINE NEG (NEG); RBC,URINE OCC /HPF (0-2); SQUAMOUS EPITHELIAL CELL,UR FEW /LPF
[2020-06-26] MEDS ORDERED: ACETAMINOPHEN 500 MG TABLET PO ONE (14:30)
== END 2020-06-26 15:23 | disposition home or self-care (01) ==
LOC: ER 11:30
DX: O99.340 Other mental disorders complicating pregnancy, unspecified trimester (principal); F41.9 Anxiety disorder, unspecified; F32.9 Major depressive disorder, single episode, unspecified; I10 Essential (primary) hypertension; Z91.011 Allergy to milk products; Z88.8 Allergy status to other drugs, medicaments and biological substances; Z3A.00 Weeks of gestation of pregnancy not specified
CPT/HCPCS: 36415; 80053; 81001; 85025; 87086; 87147; 99283

== ENCOUNTER 2020-06-28 11:15 | Emergency (ER) | payer MEDICAID ==
[~2020-06-28] VITALS: Ht 160 cm; Wt 96.9 kg
[2020-06-28 11:34] VITALS: BP 141/81
--- NOTE | 2020-06-28 12:07 | PHYS DOC ---
Past History Past Medical History: Anxiety, Depression, Hypertension, Other Additional Past Medical Histor: Castleman's disease, Lymphoproliferateive disorder Past Surgical History: Other Additional Past Surgical Histo: right fallopian tube and right ovary removed in september-due to cyst Smoking: Non-smoker Alcohol Use: None Drug Use: None Adult General Chief Complaint Chief Complaint: ANXIETY/PANIC ATTACK HPI HPI Patient is a 30-year-old female well-known to our facility who presents via EMS for anxiety. When evaluated by myself, patient reports she instead is suffering from 9/10 severity left lower quadrant abdominal pain. Onset was yesterday evening. Patient took x1 Tylenol with moderate relief yesterday but reports recurrence of abdominal pain that is been constant since onset. Nothing known makes worse. Pain described as sharp, nonradiating. Patient reports being as evident by elevated beta-hCG obtained 06/15/2020. She is pending initial VASCULAR RADIOLOGIST visit in 2 days. She has not had comprehensive work-up in outpatient setting yet. Denies any other symptoms such as vaginal irritation, bleeding, dysuria, discharge, sexual activity, recent foreign body toys etc. Review of Systems Review of Systems Fourteen body systems of review of systems have been reviewed. See HPI for pertinent positives and negative responses, other [place] all other systems are negative, non-pertinent or non-contributory Allergies Allergies Allergies Coded Allergies Type Severity Reaction Last Updated Verified Milk Containing Products Allergy Intermediate 06/03/20 Yes lisinopril Allergy Intermediate 06/03/20 No Physical Exam Physical Exam Constitutional: Well developed, well nourished, no acute distress, non-toxic appearance. HENT: Normocephalic, atraumatic, bilateral external ears normal, oropharynx moist, no oral exudates, nose normal. Eyes: PERRLA, EOMI, conjunctiva normal, no discharge. Neck: Normal range of motion, no tenderness, supple, no stridor. Cardiovascular: Heart rate regular, sinus rhythm, no murmurs rubs or gallops Lungs & Thorax: Bilateral breath sounds clear to auscultation Abdomen: Bowel sounds normal, soft, no tenderness, no masses, no pulsatile masses. Nonsurgical abdomen, no peritoneal signs Skin: Warm, dry, no erythema, no rash. Back: No tenderness, no CVA tenderness. Extremities: No tenderness, no cyanosis, no clubbing, ROM intact, no edema. Neurologic: Alert and oriented X 3, grossly normal motor & sensory function, no focal deficits noted. Psychologic: Affect normal, judgement normal, mood normal. Current Patient Data Vital Signs Vital Signs Date Time Temp Pulse Resp B/P (MAP) Pulse Ox O2 Delivery O2 Flow Rate FiO2 06/28/20 11:34 98.2 81 16 141/81 (101) 99 Lab Results Laboratory Tests Test 06/28/20 14:30 Urine Collection Type Unknown Urine Color Yellow Urine Clarity Hazy Urine pH 7.0 Urine Specific Ryan 1.020 Urine Protein Neg Urine Glucose (UA) Neg mg/dL Urine Ketones (Stick) Neg mg/dL Urine Blood Neg Urine Nitrite Neg Urine Bilirubin Neg Urine Urobilinogen Dipstick 0.2 mg/dL Urine Leukocyte Esterase Small Urine RBC 0 /HPF Urine WBC 5-10 /HPF Urine Bacteria Few /HPF Current Medications Medications (Trade) Dose Ordered Sig/Andrzej Route PRN Reason Start Time Stop Time Status Last Admin Dose Admin Acetaminophen (Tylenol) 500 mg 1X ONCE PO 06/28/20 12:15 06/28/20 12:16 DC 06/28/20 12:15 EKG EKG [] Radiology/Procedures Radiology/Procedures PROCEDURE: OB <14 WKS INDICATION: Reason: LLQ pain / Spl. Instructions: / History: COMPARISON: November 22, 2019 TECHNIQUE: Grayscale and color ultrasound images uterus and adnexa. FINDINGS: Uterus: 113 x 76 x 69 mm. Intrauterine gestational sac is identified with a pole with cervical length of 24 mm. [place]-rump length is 28 mm. Right ovary has been removed. Left ovary is 45 x 32 x 23 mm. Vascular flow is seen in the left ovary. The heartbeat is 175. IMPRESSION: * Intrauterine is identified with estimated gestational age of 9 weeks and 5 day with estimated due date of 01/26/2021 with a positive heartbeat. Recommend routine anomaly screening at 18-22 weeks. Electronically signed by: Steven Gardiner MD (06/28/2020 1:17 PM) [id number] ] Course & Med Decision Making Course & Med Decision Making ABCs non-concerning Comprehensive history and physical exam obtained, subsequent laboratory and imaging pertinent to patient presentation ordered Patient given p.o. Tylenol with improvement in abdominal pain ER course reviewed, grossly non-concerning for any surgical/emergent pathology Discussed findings of negative urinalysis and transabdominal ultrasound Patient has outpatient follow-up with VASCULAR RADIOLOGIST in 2 days to establish care for first visit, I advised her to continue PRN Tylenol use until seen I feel patient's poorly controlled mental health diagnoses are culprit to numerous often unnecessary ER visits. Patient has been educated extensively on local behavioral health resources available to her but has yet to establish care with them. I reinforced need to do this today for the sake of her in future baby Nonetheless, I discussed that today's presentation might be an acute presenta tion of more serious disease process Strict return precautions were discussed with good understanding by patient, all questions and concerns addressed prior to ER departure in stable condition Dragon Disclaimer Dragon Disclaimer This electronic medical record was generated, in whole or in part, using a voice recognition dictation system. Departure Departure: Impression: Primary Impression: Abdominal pain during in first trimester Additional Impression: Anxiety Disposition: HOME/RESIDENCE PRIOR TO ADM Condition: STABLE Referrals: DEX COLON MD (PCP) Patient Instructions: ABCs of , Abdominal Pain During Additional Instructions: You have been evaluated in the Emergency Department today for abdominal pain. Your evaluation was not suggestive of any emergent condition requiring medical intervention at this time. However, some abdominal problems make take more time to appear. Therefore, it is important for you to watch for any new symptoms or worsening of your current condition. Please keep follow-up with your scheduled VASCULAR RADIOLOGIST in 2 days time I stressed the importance of establishing with outpatient behavioral health specialist for outpatient therapy Return to the Emergency Department if you experience worsening pain, persistent fevers greater than 100.4, recurrent vomiting, blood in vomit, blood in stool, dark tarry stool, chest pain, difficulty breathing, or any other concerning symptoms. Justification of Admission: Justification of Admission: Justification of Admission Dx: N/A Problem Qualifiers CIROADITI BELTRE Jun 28, 2020 12:07
[2020-06-28] MEDS ORDERED: ACETAMINOPHEN 500 MG TABLET PO ONE (12:15)
--- NOTE | 2020-06-28 13:20 | RAD ---
INDICATION: Reason: LLQ pain / Spl. Instructions: / History: COMPARISON: November 22, 2019 TECHNIQUE: Grayscale and color ultrasound images uterus and adnexa. FINDINGS: Uterus: 113 x 76 x 69 mm. Intrauterine gestational sac is identified with a pole with cervical length of 24 mm. [place]-rump length is 28 mm. Right ovary has been removed. Left ovary is 45 x 32 x 23 mm. Vascular flow is seen in the left ovary. The heartbeat is 175. IMPRESSION: * Intrauterine is identified with estimated gestational age of 9 weeks and 5 day with estimated due date of 01/26/2021 with a positive heartbeat. Recommend routine anomaly screening at 18-22 weeks. Electronically signed by: Steven Gardiner MD (06/28/2020 1:17 PM) [id number]
[2020-06-28 15:17] LABS: BILIRUBIN,URINE NEG (NEG); CLARITY,URINE HAZY; COLOR,URINE YELLOW; GLUCOSE,URINE NEG (NEG)
[2020-06-28 15:18] LABS: BACTERIA,URINE FEW /HPF (0-FEW); NITRITE,URINE NEG (NEG); RBC,URINE 0 /HPF (0-2); UROBILINOGEN,URINE 0.2 mg/dL (0.2 mg/dL)
== END 2020-06-28 15:45 | disposition home or self-care (01) ==
LOC: ER 11:15
DX: O99.341 Other mental disorders complicating pregnancy, first trimester (principal); F41.9 Anxiety disorder, unspecified; F32.9 Major depressive disorder, single episode, unspecified; O16.1 Unspecified maternal hypertension, first trimester; Z3A.09 9 weeks gestation of pregnancy; Z91.011 Allergy to milk products; Z88.8 Allergy status to other drugs, medicaments and biological substances
CPT/HCPCS: 76801; 81001; 87086; 99284-25

== ENCOUNTER 2020-06-28 20:41 | Emergency (ER) | payer MEDICAID ==
[~2020-06-28] VITALS: Ht 160 cm; Wt 96.9 kg
[2020-06-28 20:41] VITALS: BP 159/89
--- NOTE | 2020-06-28 21:39 | PHYS DOC ---
Past History Past Medical History: Anxiety, Depression, Hypertension, Other Additional Past Medical Histor: Castleman's disease, Lymphoproliferateive disorder Past Surgical History: Other Additional Past Surgical Histo: right fallopian tube and right ovary removed in september-due to cyst Smoking: Non-smoker Alcohol Use: None Drug Use: None Adult General Chief Complaint Chief Complaint: SUICIDAL IDEATION HPI HPI Patient is a 30-year-old female who presents for anxiety. This is patient's second visit to our emergency department today. I previously evaluated patient for abdominal pain and and had unremarkable ultrasound performed. At that time, patient reports her anxiety was well controlled despite not establishing and following previous instructions to establish care with local mental health providers. Nonetheless, after discharge, patient went home and reports feeling anxious. She reports thinking that she would not be sad if she did not wake up. This concerned her prompting her to call EMS for transport here for evaluation. She denies being suicidal at present. She has no plan. Review of Systems Review of Systems Fourteen body systems of review of systems have been reviewed. See HPI for pertinent positives and negative responses, other [place] all other systems are negative, non-pertinent or non-contributory Allergies Allergies Allergies Coded Allergies Type Severity Reaction Last Updated Verified Milk Containing Products Allergy Intermediate 06/03/20 Yes lisinopril Allergy Intermediate 06/03/20 No Physical Exam Physical Exam Constitutional: Well developed, well nourished, no acute distress, non-toxic appearance. HENT: Normocephalic, atraumatic, bilateral external ears normal, oropharynx moist, no oral exudates, nose normal. Eyes: PERRLA, EOMI, conjunctiva normal, no discharge. Neck: Normal range of motion, no tenderness, supple, no stridor. Cardiovascular: Heart rate regular, sinus rhythm, no murmurs rubs or gallops Lungs & Thorax: Bilateral breath sounds clear to auscultation Abdomen: Bowel sounds normal, soft, no tenderness, no masses, no pulsatile masses. Nonsurgical abdomen, no peritoneal signs Skin: Warm, dry, no erythema, no rash. Back: No tenderness, no CVA tenderness. Extremities: No tenderness, no cyanosis, no clubbing, ROM intact, no edema. Neurologic: Alert and oriented X 3, grossly normal motor & sensory function, no focal deficits noted. Psychologic: Depressed mood, flat affect Current Patient Data Vital Signs Vital Signs Date Time Temp Pulse Resp B/P (MAP) Pulse Ox O2 Delivery O2 Flow Rate FiO2 06/28/20 20:41 98.8 90 16 159/89 (112) 98 Room Air EKG EKG [] Radiology/Procedures Radiology/Procedures [] Course & Med Decision Making Course & Med Decision Making Ambulatory patient seen on ER arrival ABCs unremarkable This is patient's second evaluation in single day by myself Does not appear in acute distress, no active suicidal ideation, no plan, her behavior is consistent with malingering Local behavioral health specialist contacted, case discussed, all in agreement that patient was safe and not a harm to self or discharge home. Crisis center likely has patient's contact information and will reach out to her on opening tomorrow morning to establish care and ensure she is seen in outpatient setting I discussed importance of follow-up in outpatient setting. I educated patient extensively on importance of this I attempted to identify socioeconomic or other barriers of care regarding why she will not seek outpatient help, I discussed numerous unnecessary ER visits that could be easily addressed in outpatient setting Patient appeared to understand my extensive conversation with her, all questions and concerns addressed, reported importance of keeping phone on cellular local crisis center could contact her in the morning Strict return precautions discussed with good understanding, patient discharged in stable condition Dragon Disclaimer Dragon Disclaimer This electronic medical record was generated, in whole or in part, using a voice recognition dictation system. Departure Departure: Impression: Primary Impression: Passive suicidal ideations Additional Impression: Anxiety Disposition: 01 HOME/RESIDENCE PRIOR TO ADM Condition: STABLE Referrals: DEX COLON MD (PCP) Patient Instructions: Suicidal Feelings, How to Help Yourself Additional Instructions: As discussed prior to ER departure, please ensure you keep your cell phone on so that crisis center can reach you first thing tomorrow morning Your educated extensively on strict return precautions regarding your passive suicidal ideation without a plan, if any at the discussed signs or symptoms present themselves, please report back to our ER for thorough evaluation It was a pleasure to take care of you today and I hope you establish with this outpatient mental health services I feel it would greatly benefit your mood and overall quality of life Justification of Admission: Justification of Admission: Justification of Admission Dx: N/A Problem Qualifiers ADITI TANNER DO Jun 28, 2020 21:39
[2020-06-28] MEDS ORDERED: ACETAMINOPHEN 500 MG TABLET PO ONE (21:45)
== END 2020-06-28 21:48 | disposition home or self-care (01) ==
LOC: ER 20:41
DX: O99.341 Other mental disorders complicating pregnancy, first trimester (principal); R45.851 Suicidal ideations; F41.9 Anxiety disorder, unspecified; F32.9 Major depressive disorder, single episode, unspecified; O16.1 Unspecified maternal hypertension, first trimester; Z3A.00 Weeks of gestation of pregnancy not specified; Z91.011 Allergy to milk products; Z88.8 Allergy status to other drugs, medicaments and biological substances
CPT/HCPCS: 99283; 99285-25

== ENCOUNTER 2020-07-03 15:30 | Emergency (ER) | payer MEDICAID ==
[~2020-07-03] VITALS: Ht 160 cm; Wt 96.9 kg
[2020-07-03 15:39] VITALS: BP 142/100
--- NOTE | 2020-07-03 15:40 | PHYS DOC ---
Past History Past Medical History: Anxiety, Depression, Hypertension, Other Additional Past Medical Histor: Castleman's disease, Lymphoproliferateive disorder Past Surgical History: Other Additional Past Surgical Histo: right fallopian tube and right ovary removed in september-due to cyst Smoking: Non-smoker Alcohol Use: None Drug Use: None Adult General Chief Complaint Chief Complaint: ANXIETY/PANIC ATTACK HPI HPI Patient is a 30-year-old female who presents via EMS for anxiety. This is her eighth visit to our ER this month for identical complaint. Since last visit, patient reports establishing at [facility] and having unremarkable first visit laboratory and ultrasound studies performed. At last visit, crisis center locally was contacted with plans to contact patient following day to discuss setting up outpatient therapy. Patient reports she did not receive a call from them and has not tried to reach out to set this up. Today, she reports ongoing anxiety but denies any type of hallucinations, homicidal ideation, suicidal ideation or plan. She denies any fever, recent long distance travel, chest pain, shortness of breath, abdominal pain, urinary symptoms or changes in bowel function. Review of Systems Review of Systems Fourteen body systems of review of systems have been reviewed. See HPI for pertinent positives and negative responses, other [place] all other systems are negative, non-pertinent or non-contributory Allergies Allergies Allergies Coded Allergies Type Severity Reaction Last Updated Verified Milk Containing Products Allergy Intermediate 06/03/20 Yes lisinopril Allergy Intermediate 06/03/20 No Physical Exam Physical Exam Constitutional: Well developed, well nourished, no acute distress, non-toxic appearance. HENT: Normocephalic, atraumatic, bilateral external ears normal, oropharynx moist, no oral exudates, nose normal. Eyes: PERRLA, EOMI, conjunctiva normal, no discharge. Neck: Normal range of motion, no tenderness, supple, no stridor. Cardiovascular: Heart rate regular, sinus rhythm, no murmurs rubs or gallops Lungs & Thorax: Bilateral breath sounds clear to auscultation Abdomen: Bowel sounds normal, soft, no tenderness, no guarding, no rebound, no masses, no pulsatile masses. Nonsurgical abdomen, no peritoneal signs Skin: Warm, dry, no erythema, no rash. Back: No tenderness, no CVA tenderness. Extremities: No tenderness, no cyanosis, no clubbing, ROM intact, no edema. Neurologic: Alert and oriented X 3, grossly normal motor & sensory function, no focal deficits noted. Psychologic: Depressed mood, flat affect EKG EKG [] Radiology/Procedures Radiology/Procedures [] Course & Med Decision Making Course & Med Decision Making Patient seen on immediate ems arrival ABCs unremarkable Comprehensive history and physical exam obtained, reviewed prior visits diagnostic work-up Discussed findings today, nonemergent and nonsurgical in nature. Anxiety appears at baseline without any concern for harm to others or harm to self Again, I feel patient is malingering in utilizing EMS for transportation to our local area where she lives. Regardless, I stressed the need to follow-up with PCP in outpatient setting to avoid regular often unnecessary trips to the emergency room I also stressed the need to establish care with local behavioral health resources that she has been educated on at length during prior visits and again today Strict return precautions were discussed, all questions and concerns addressed prior to discharge home in stable condition Dragon Disclaimer Dragon Disclaimer This electronic medical record was generated, in whole or in part, using a voice recognition dictation system. Departure Departure: Impression: Primary Impression: Anxiety Additional Impressions: Malingering and not yet delivered in first trimester Disposition: 01 HOME/RESIDENCE PRIOR TO ADM Condition: STABLE Referrals: DEX COLON MD (PCP) Patient Instructions: Anxiety and Panic Attacks Justification of Admission: Justification of Admission: Justification of Admission Dx: N/A Problem Qualifiers ADITI TANNER DO Jul 03, 2020 15:40
[2020-07-03] MEDS ORDERED: ACETAMINOPHEN 500 MG TABLET PO ONE ×2 (15:51→16:00)
== END 2020-07-03 15:54 | disposition home or self-care (01) ==
LOC: ER 15:30
DX: O99.341 Other mental disorders complicating pregnancy, first trimester (principal); F41.9 Anxiety disorder, unspecified; F32.9 Major depressive disorder, single episode, unspecified; O16.1 Unspecified maternal hypertension, first trimester; Z76.5 Malingerer [conscious simulation]; Z88.8 Allergy status to other drugs, medicaments and biological substances; Z3A.00 Weeks of gestation of pregnancy not specified; Z91.011 Allergy to milk products
CPT/HCPCS: 99283

== ENCOUNTER 2020-08-09 17:11 | Emergency (ER) | payer MEDICAID ==
[~2020-08-09] VITALS: Ht 160 cm; Wt 104.1 kg
[2020-08-09] MEDS ORDERED: ACETAMINOPHEN 325 MG TABLET PO ONE (18:15)
[2020-08-09] MEDS ORDERED: diphenhydrAMINE HCL 25 MG CAPSULE PO ONE (18:15)
[2020-08-09] MEDS ORDERED: METOCLOPRAMIDE 10 MG TABLET PO ONE (18:15)
--- NOTE | 2020-08-09 18:40 | PHYS DOC ---
Past History Past Medical History: Anxiety, Hypertension Additional Past Medical Histor: Castleman's disease, Lymphoproliferateive disorder (ERVIN CEBALLOS DO) Past Surgical History: Other Additional Past Surgical Histo: TUMOR REMOVED FROM RIGHT OVARY AND FALOPIAN TUBE (ERVIN CEBALLOS DO) Smoking: Non-smoker Alcohol Use: None Drug Use: None (ERVIN CEBALLOS DO) General Adult EDM: Chief Complaint: MULTIPLE COMPLAINTS HPI: HPI: 30-year-old female past medical history of anxiety, depression, hyperlipidemia, currently in her second trimester , presents to the ED with multiple complaints, c/o mild headache, upper abdominal pain stating "it's the baby kicking my stomach," and worsening anxiety. Pt becomes tearful and reports he was prescribed escitalopram for her anxiety and was on it for approximately 15 days, discontinued it 3 weeks ago because "it made me foggy, I did not like how it made me feel." States she has had a history of suicidal thoughts (was admitted to [facility]) but no history of suicidal attempt. Denies any current suicidal or homicidal ideations. Becomes tearful and reports being "overwhelmed" from her desired/planned . Follows at the guidance center. (ERVIN CEBALLOS DO) Review of Systems: Review of Systems: Constitutional: Denies fever or chills Eyes: Denies change in visual acuity HENT: Denies nasal congestion or sore throat Respiratory: Denies cough or shortness of breath Cardiovascular: Denies chest pain or edema GI: Denies nausea, vomiting, bloody stools or diarrhea : Denies dysuria or hematuria or vaginal bleeding or abnormal vaginal discharge itching or odor Musculoskeletal: Denies back pain or joint pain Integument: Denies rash Neurologic: Denies headache, focal weakness or sensory changes Endocrine: Denies polyuria or polydipsia Lymphatic: Denies swollen glands Psychiatric: Denies SI, HI or hallucinations (ERVIN CEBALLOS DO) Heart Score: Risk Factors: Risk Factors: DM, Current or recent (<one month) smoker, HTN, HLP, family history of CAD, obesity. Risk Scores: Score 0 - 3: 2.5% MACE over next 6 weeks - Discharge Home Score 4 - 6: 20.3% MACE over next 6 weeks - Admit for Clinical Observation Score 7 - 10: 72.7% MACE over next 6 weeks - Early Invasive Strategies (ERVIN LARSEN DO) Current Medications: Current Meds: Current Medications Medications (Trade) Dose Ordered Sig/Andrzej Start Time Stop Time Status Last Admin Dose Admin Acetaminophen (Tylenol) 650 mg 1X ONCE 08/09/20 18:15 08/09/20 18:30 DC Diphenhydramine HCl (Benadryl) 25 mg 1X ONCE 08/09/20 18:15 08/09/20 18:30 DC Metoclopramide HCl (Reglan) 10 mg 1X ONCE 08/09/20 18:15 08/09/20 18:30 DC [facility] Allergies: Allergies: Allergies Coded Allergies Type Severity Reaction Last Updated Verified Milk Containing Products Allergy Intermediate 08/09/20 Yes lisinopril Allergy Intermediate 08/09/20 No ([facility]) Physical Exam: PE: Constitutional: Well developed, well nourished, no acute distress, non-toxic appearance. [] HENT: Normocephalic, atraumatic, bilateral external ears normal, oropharynx moist, no oral exudates, nose normal. [] Eyes: EOMI, conjunctiva normal, no discharge. [] Neck: Normal range of motion, no tenderness, supple, no stridor. [] Cardiovascular:Heart rate regular rhythm, no murmur [] Lungs & Thorax: Bilateral breath sounds clear to auscultation [] Abdomen: obese/gravid Bowel sounds normal, soft, no tenderness, no masses, no pulsatile masses. [] FHR 150 per rn Skin: Warm, dry, no erythema, no rash. [] Back: No tenderness, no CVA tenderness. [] Extremities: No tenderness, no cyanosis, no clubbing, ROM intact, no edema. [] Neurologic: Alert and oriented X 3, normal motor function, normal sensory function, no focal deficits noted. [] Psychologic: Aflat affect and depressed mood, tearful (ERVIN CEBALLOS DO) Current Patient Data: Vital Signs: Vital Signs Date Time Temp Pulse Resp B/P (MAP) Pulse Ox O2 Delivery O2 Flow Rate FiO2 08/09/20 17:15 98.4 93 18 128/89 (102) 96 Room Air ([facility]) EKG: EKG: [] (ERVIN CEBALLOS DO) Radiology/Procedures: Radiology/Procedures: [] (ERVIN CEBALLOS DO) Course & Med Decision Making: Course & Med Decision Making Pertinent Labs and Imaging studies reviewed. (See chart for details) []Concern for headache and depression. Pt given migraine cocktail. I offered psych eval-pt unsure if she wants this. Due to shift change patient was signed out to Dr. Shelton for reevaluation. (ERVIN CEBALLOS DO) Course & Med Decision Making For her headache, the patient was given Tylenol, Reglan, and Benadryl. Her headache has improved at this time. She has chronic anxiety for which she is supposed to be seeing counseling. She does not go to her appointments very often. I have encouraged her to follow-up with her psychiatric team. She is stable for discharge at this time. (DONNIE SHELTON DO) Dragon Disclaimer: Dragon Disclaimer: This electronic medical record was generated, in whole or in part, using a voice recognition dictation system. (ERVIN CEBALLOS DO) Departure Departure: Impression: Primary Impression: Headache Additional Impression: Anxiety about health Disposition: HOME/RESIDENCE PRIOR TO ADM Condition: STABLE Referrals: DEX COLON MD (PCP) Patient Instructions: General Headache Without Cause, [id number] ERVIN CEBALLOS DO Aug 09, 2020 18:40 DONNIE HSELTON DO Aug 09, 2020 20:08
[2020-08-09 18:57] VITALS: BP 135/95
== END 2020-08-09 20:15 | disposition home or self-care (01) ==
LOC: ER 17:11
DX: O99.342 Other mental disorders complicating pregnancy, second trimester (principal); Z3A.00 Weeks of gestation of pregnancy not specified; R51.9 Headache, unspecified; O16.2 Unspecified maternal hypertension, second trimester; Z88.8 Allergy status to other drugs, medicaments and biological substances; Z91.011 Allergy to milk products
CPT/HCPCS: 99284; J8597; Q0163

== ENCOUNTER 2020-08-11 19:00 | Emergency (ER) | payer MEDICAID ==
[~2020-08-11] VITALS: Ht 160 cm; Wt 104.1 kg
[2020-08-11] MEDS ORDERED: IV NORMAL SALINE 1,000ML 1,000 ML IV ONE (19:30)
--- NOTE | 2020-08-11 19:33 | PHYS DOC ---
Past History Past Medical History: Anxiety, Hypertension, Schizophrenia Additional Past Medical Histor: Castleman's disease, Lymphoproliferateive disorder Past Surgical History: Other Additional Past Surgical Histo: TUMOR REMOVED FROM RIGHT OVARY AND FALOPIAN TUBE Smoking: Non-smoker Alcohol Use: None Drug Use: None General Adult EDM: Chief Complaint: VOMITING IN HPI: HPI: Patient is a 30-year-old female who presents with right lower quadrant abdominal pain which started around 8 AM this morning after eating breakfast. Patient states that her who had the same breakfast is not having similar symptoms. She also has nausea and "violent" vomiting x1. She is currently 16 weeks . [address] OB is Dr. Membreno at . She has only had one OB visit during which she had an ultrasound done and it revealed no abnormalities. Patient denies any abnormal vaginal discharge or bleeding. She denies any fever, chills, or body aches. She reports to having a mild headache which is chronic for her. Review of Systems: Review of Systems: Constitutional: Denies fever or chills Eyes: Denies redness or eye pain HENT: Denies nasal congestion or sore throat Respiratory: Denies cough or shortness of breath Cardiovascular: Denies chest pain or palpitations GI: Reports right lower quadrant pain, nausea, and vomiting : Denies dysuria, hematuria, vaginal discharge/bleeding Musculoskeletal: Denies back pain or joint pain Integument: Denies rash or skin lesions Neurologic: Denies focal weakness or sensory changes, reports headache Complete systems were reviewed and found to be within normal limits, except as documented in this note. Current Medications: Current Meds: Current Medications Medications (Trade) Dose Ordered Sig/Andrzej Start Time Stop Time Status Last Admin Dose Admin Sodium Chloride 1,000 ml @ 1,000 mls/hr 1X ONCE 08/11/20 19:30 08/11/20 20:29 Allergies: Allergies: Allergies Coded Allergies Type Severity Reaction Last Updated Verified Milk Containing Products Allergy Intermediate 08/09/20 Yes lisinopril Allergy Intermediate 08/09/20 No Physical Exam: PE: Constitutional: Well developed, well nourished, no acute distress, non-toxic appearance HENT: Normocephalic, atraumatic Eyes: PERRL, EOMI, conjunctiva normal, no discharge Neck: Normal range of motion, no tenderness, supple Lungs & Thorax: No respiratory distress, equal chest rise and fall Abdomen: Soft, mild tenderness to right lower quadrant with voluntary guarding Skin: Warm, dry, no erythema, no rash Back: No tenderness, no CVA tenderness Extremities: No tenderness, ROM intact, no edema Neurologic: Alert and oriented X 3, normal motor function, normal sensory function, no focal deficits noted Psychologic: Affect flat, judgment normal Current Patient Data: Vital Signs: Vital Signs Date Time Temp Pulse Resp B/P (MAP) Pulse Ox O2 Delivery O2 Flow Rate FiO2 08/11/20 19:09 99.0 93 18 145/88 (107) 98 Room Air Radiology/Procedures: Radiology/Procedures: PROCEDURE: PREG MORE THAN OR EQ TO 14 WKS OB ultrasound dated 08/11/2020: No comparison available. Clinical Indication: Abdominal pain nausea vomiting and headache.. Findings: There is a single intrauterine gestation in breech presentation. The placenta is anterior in location without evidence of placental previa. Small hypoechoic focus at the edge of the placenta, likely a placental bucio. The amount of amniotic fluid appears appropriate. Biometrical data is as follows: BPD = 3.1 cm for 15 weeks 6 days. HC = 12.2 cm for 16 weeks 1 days. AC = 11.0 cmfor 16 weeks 6 days. FL = 1.8 cm for 15 weeks 3 days. Overall, the estimated sonographic gestational age is 16 weeks 1 day for an estimated date of delivery of 01/25/2021. Complete survey was not performed. cardiac activity of 140 BPM. Cervical length is estimated at 4 cm. Small hypoechoic focus at the left ovary measuring up to 1.2 cm, likely cyst. Left ovary otherwise unremarkable. The right ovary not well visualized. No free fluid. Impression: Single viable intrauterine gestation with estimated sonographic gestational age of 16 weeks 1 day. No acute findings. Electronically signed by: José Miguel Mancia MD (08/11/2020 9:20 PM) [facility] [place] DICTATED AND SIGNED BY: JOSÉ MIGUEL MANCIA MD DATE: 08/11/202119 Course & Med Decision Making: Course & Med Decision Making Pertinent Labs and Imaging studies reviewed. (See chart for details) Patient is a 30-year-old female who presents with right lower quadrant abdominal pain. Her labs showed no leukocytosis and her urine confirmed her . Ultrasound confirmed a single viable intrauterine gestation estimated gestational age at 16 weeks 1 day and no acute findings. I suspect patient may have had mild abdominal pain due to her ovarian cysts, which were seen on the sonogram. Patient appeared comfortable upon re-eval and she states her abdominal pain has resolved. Patient stable for discharge with outpatient follow-up with her [employer]. Discussed findings and plan with patient, who acknowledges understanding and agreement. Yuriy Disclaimer: Yuriy Disclaimer: This electronic medical record was generated, in whole or in part, using a voice recognition dictation system. Departure Departure: Impression: Primary Impression: Abdominal pain during Qualified Codes: O26.892 - Other specified related conditions, second trimester; R10.9 - Unspecified abdominal pain Disposition: HOME/RESIDENCE PRIOR TO ADM Condition: STABLE Referrals: DEX COLON MD (PCP) Patient Instructions: Abdominal Pain During , [id number], Nausea, Adult, [id number] Scripts Ondansetron (ONDANSETRON ODT) 4 Mg Tab.rapdis 1 TAB PO PRN Q6-8HRS PRN for NAUSEA, #16 TAB Prov: JOSÉ MIGUEL CRUZ DO 08/11/20 JOSÉ MIGUEL CRUZ DO Aug 11, 2020 19:33
[2020-08-11 20:13] LABS: BILIRUBIN,URINE NEG (NEG); CLARITY,URINE CLEAR; COLOR,URINE YELLOW; GLUCOSE,URINE NEG (NEG); NITRITE,URINE NEG (NEG); RBC,URINE OCC /HPF (0-2); UROBILINOGEN,URINE 0.2 mg/dL (0.2 mg/dL)
[2020-08-11 20:14] LABS: BACTERIA,URINE 0 /HPF (0-FEW); BARBITURATES NEG (NEG); BENZODIAZEPINES NEG (NEG); CANNABINOIDS NEG (NEG); COCAINE NEG (NEG); METHADONE NEG (NEG); OPIATES NEG (NEG); PHENCYCLIDINE NEG (NEG); SQUAMOUS EPITHELIAL CELL,UR MOD /LPF; WBC,URINE 0 /HPF (0-4)
[2020-08-11 20:17] LABS: BASO % 0 % (0-3); EOS # 0.1 x10^3/uL (0.0-0.7); EOS % 1 % (0-3); HEMATOCRIT 39.4 % (36.0-47.0); HEMOGLOBIN 13.4 g/dL (12.0-15.5); LYMPH # 1.2 x10^3/uL (1.0-4.8); LYMPH % 21 % (24-48); MEAN CORPUSCULAR HEMOGLOBIN 32 pg (25-35); MEAN CORPUSCULAR HGB CONC 34 g/dL (31-37); MEAN CORPUSCULAR VOLUME 93 fL (79-100); MONO # 0.4 x10^3/uL (0.0-1.1); MONO % 7 % (0-9); NEUT # 4.2 x10^3uL (1.8-7.7); NEUT % 70 % (31-73); PLATELET COUNT 144 x10^3/uL (140-400); RED BLOOD COUNT 4.23 x10^6/uL (3.50-5.40); RED CELL DISTRIBUTION WIDTH 14.6 % (11.5-14.5); WHITE BLOOD COUNT 5.9 x10^3/uL (4.0-11.0)
[2020-08-11 20:33] LABS: AMPHETAMINE/METHAMPHETAMINE NEG (NEG)
[2020-08-11 20:42] LABS: CALCIUM 8.9 mg/dL (8.5-10.1); CREATININE 0.7 mg/dL (0.6-1.0); GFR 119.7; POTASSIUM 3.7 mmol/L (3.5-5.1)
[2020-08-11 20:46] LABS: ALBUMIN/GLOBULIN RATIO 0.8 (1.0-1.7); MAGNESIUM 1.8 mg/dL (1.8-2.4); TOTAL BILIRUBIN 0.1 mg/dL (0.2-1.0); TOTAL PROTEIN 6.7 g/dL (6.4-8.2)
--- NOTE | 2020-08-11 21:23 | RAD ---
OB ultrasound dated 08/11/2020: No comparison available. Clinical Indication: Abdominal pain nausea vomiting and headache.. Findings: There is a single intrauterine gestation in breech presentation. The placenta is anterior in location without evidence of placental previa. Small hypoechoic focus at the edge of the placenta, likely a placental bucio. The amount of amniotic fluid appears appropriate. Biometrical data is as follows: BPD = 3.1 cm for 15 weeks 6 days. HC = 12.2 cm for 16 weeks 1 days. AC = 11.0 cmfor 16 weeks 6 days. FL = 1.8 cm for 15 weeks 3 days. Overall, the estimated sonographic gestational age is 16 weeks 1 day for an estimated date of delivery of 01/25/2021. Complete survey was not performed. cardiac activity of 140 BPM. Cervical length is estimated at 4 cm. Small hypoechoic focus at the left ovary measuring up to 1.2 cm, likely cyst. Left ovary otherwise unremarkable. The right ovary not well visualized. No free fluid. Impression: Single viable intrauterine gestation with estimated sonographic gestational age of 16 weeks 1 day. No acute findings. Electronically signed by: José Miguel Mancia MD (08/11/2020 9:20 PM) [email or web address]
[2020-08-11 21:45] VITALS: BP 158/67
[2020-08-11] MEDS ORDERED: ONDA4TAB12 PO (21:59)
[2020-08-11] MEDS ORDERED: ONDANSETRON PF 4 MG/2 ML VIAL. IVP ONE (22:00)
== END 2020-08-11 22:05 | disposition home or self-care (01) ==
LOC: ER 19:00
DX: O26.892 Other specified pregnancy related conditions, second trimester (principal); O21.9 Vomiting of pregnancy, unspecified; R10.31 Right lower quadrant pain; O16.2 Unspecified maternal hypertension, second trimester; Z3A.01 Less than 8 weeks gestation of pregnancy; Z88.8 Allergy status to other drugs, medicaments and biological substances; Z91.011 Allergy to milk products
CPT/HCPCS: 36415; 76805; 80053; 80307; 81001; 81025; 83735; 84702; 85025; 96361; 96374; 99285; J2405; J7030

== ENCOUNTER 2020-08-15 17:12 | Emergency (ER) | payer MEDICAID ==
[~2020-08-15] VITALS: Ht 160 cm; Wt 104.1 kg
[~2020-08-15 17:12] MED LIST changes: +ONDA4TAB12 PO
[2020-08-15] MEDS: ONDANSETRON ODT 4 MG TAB.RAPDIS PO ONE (18:17)
--- NOTE | 2020-08-15 18:26 | PHYS DOC ---
Past History Past Medical History: Anxiety, Hypertension, Migraines, Schizophrenia, UTI Additional Past Medical Histor: Castleman's disease, Lymphoproliferateive disorder Past Medical History G2, T 1 Vaginal Past Surgical History: Other Additional Past Surgical Histo: TUMOR REMOVED FROM RIGHT OVARY AND FALOPIAN TUBE Smoking: Non-smoker Alcohol Use: None Drug Use: None General Adult EDM: Chief Complaint: NAUSEA/VOMITING/DIARRHEA HPI: HPI: ". . I am having pain .. all over my abdomen.. . ..I ...I am having chest pain.... I just feel really bad...I am very anxious about .. this ..."' Patient is a 30 year old femae who presents with complaints of generalized abdomen pain and chest pain.. Chest gentile has been constant the last three days and localized to the sternal area. Pt relates she is about 14- 16 weeks . Patient denies any intake of bad food. Patient denies any trauma. No history of specific ill contacts. . Patient is known to the emergency department and EMS by frequent exacerbations of her anxiety,panic attacks, Schizoaffective disorder, abdomen pain, depression, hypertension, Pt. is G2, T 1 vaginal delivery. . Pt has Hx. Castleman dz, Lymphoproliferative disorder, Ovarian cysts. Pt. has Prior Ovary cyst and fallopian tube removal in September 2019. Pt. has hx on non-compliance with medical plans, work up and treatments. Pt. states she is taking a vitamin. Pt. states she plans delivery at . Patient r unable to identify her doctors names or plan for getting to for emergent delivery if needed. Pt. states she had only one life time sexual partner. Has had recurrent episode of bacterial vaginosis and UTIs. Pt. is non-smoker, and denies drug use. Pt. follows locally with primary Dr. Boyd. Pt. has in past followed at [facility]selling [facility] in [place]. Review of Systems: Review of Systems: Constitutional: Denies fever or chills Eyes: Denies change in visual acuity HENT: Denies nasal congestion or sore throat Respiratory: Denies cough or shortness of breath Cardiovascular: Complaints chest pain GI: Complaints of generalized abdominal pain, nausea. Denies vomiting, bloody stools or diarrhea : Denies dysuria Musculoskeletal: Denies back pain or joint pain Integument: Denies rash Neurologic: Denies headache, focal weakness or sensory changes Endocrine: Denies polyuria or polydipsia Lymphatic: Denies swollen glands Psychiatric: Complains of depression and anxiety Heart Score: HEART Score for Chest Pain: HEART Score for Chest Pain Response (Comments) Value History Slighlty/Non-Suspicious 0 ECG Normal 0 Age < 45 0 Risk Factors 1 or 2 Risk Factors 1 Troponin < Normal Limit 0 Total 1 Risk Factors: Risk Factors: DM, Current or recent (<one month) smoker, HTN, HLP, family history of CAD, obesity. Risk Scores: Score 0 - 3: 2.5% MACE over next 6 weeks - Discharge Home Score 4 - 6: 20.3% MACE over next 6 weeks - Admit for Clinical Observation Score 7 - 10: 72.7% MACE over next 6 weeks - Early Invasive Strategies Family History: Family History: Non-contributory Current Medications: Current Meds: Current Medications Medications (Trade) Dose Ordered Sig/Andrzej Start Time Stop Time Status Last Admin Dose Admin Ondansetron HCl (Zofran Odt) 4 mg 1X ONCE 08/15/20 17:30 08/15/20 17:31 DC 08/15/20 18:17 4 MG Allergies: Allergies: Allergies Coded Allergies Type Severity Reaction Last Updated Verified Milk Containing Products Allergy Intermediate 08/09/20 Yes lisinopril Allergy Intermediate 08/09/20 No Physical Exam: PE: Constitutional: reports she is in acute distress, non-toxic appearance. [] HENT: Normocephalic, atraumatic, bilateral external ears normal, oropharynx moist, no oral exudates, nose normal. [] Eyes: PERRLA, EOMI, conjunctiva normal, no discharge. [] Neck: Normal range of motion, no tenderness, supple, no stridor. [] Cardiovascular:Heart rate regular rhythm, no murmur [] Lungs & Thorax: Bilateral breath sounds equal at apexes on auscultation [] Abdomen: Bowel sounds normal, soft, reports generalized tenderness, gravid, no pulsatile masses. FHR 130-140 variable. Vaginal- Os closed. No bleeding noted. Mild watery discharge. Obese. Old surgery scars. Skin: Warm, dry, no erythema, no rash. [] Back: No tenderness, no CVA tenderness. [] Extremities: No tenderness, no cyanosis, no clubbing, ROM intact, ankle edema. No cording. Neurologic: Alert and oriented X 3, normal motor function, normal sensory function, no focal deficits noted. DTR + 2 patella and brachial. Psychologic: Affect flat, but reports she is very anxious, judgement normal, Current Patient Data: Vital Signs: Vital Signs Date Time Temp Pulse Resp B/P (MAP) Pulse Ox O2 Delivery O2 Flow Rate FiO2 08/15/20 17:12 98.2 85 16 151/91 (111) 99 Room Air EKG: EKG: [] Radiology/Procedures: Radiology/Procedures: [][address] [address] IMAGING REPORT Signed PATIENT: SYED OAKLEY ACCOUNT: [id number] : 1990 LOCATION: ER AGE: 30 SEX: F EXAM STATUS: REG ER ORD. 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 There is single viable intrauterine fetus in cephalic presentation. There is demonstrable cardiac activity 131 bpm. Subjectively amniotic fluid volume is within normal limits. There is no abnormality of the visualized maternal adnexal regions, ovaries not seen. Biometry data are as follows: Biparietal diameter 3.16 cm corresponds with 15 weeks 6 days, 48 percentile Head circumference 12.39 cm corresponds with 16 weeks 2 days, 56 percentile Abdominal circumference 10.89 cm corresponds with 16 weeks 5 days, 81% Femur length 2.24 cm corresponds with 16 weeks 5 days, 78 percentile HC/AC ratio1.14 within normal limits Adjusted ultrasound age 16 weeks 3 days corresponds with 01/27/2021 LMP age 15 weeks 6 days corresponds with 01/31/2021 Estimated weight 165 grams+/- 24grams Impression: 1. There is single viable intrauterine fetus in cephalic presentation. Electronically signed by: Jatinder Najera MD (08/15/2020 8:18 PM) [facility] DICTATED AND SIGNED BY: JATINDER NAJERA MD DATE: 08/15/202017 CC: TRAM HOWARD MD; DEX BOYD MD ~ Course & Med Decision Making: Course & Med Decision Making Pertinent Labs and Imaging studies reviewed. (See chart for details) Pt. to keep follow up with local primary and keep [facility] follow ups where she plans to delivery. Pt. to continue vitamins. Patient remain on clear fluid diet for the next 24 hours. Patient encouraged to have further medical complaints followed up at the hospital where she plans to deliver for continuity of care during this . Patient to write down the name of her SYSTEMS DESIGN ENGINEER / OB doctor and keep follow ups. Pt.to establish a plan for transportation to her hospital of choice for the delivery if further evaluation needed. Patient follow-up pending cultures. Patient take Keflex 500 mg 3 times a day for possible UTI and Bacterial Vaginosis. Impression: 1. Chest Pain 2. Abdomen pain 3. Hx. Anxiety and Panic Attacks 4. Hx. Ovarian Cysts 5. IUP 15 weeks and 3 days by [place] 6 . Blood Type O+ Positive 7. Hgb= 14. 8. BHCG = 15,489 [] Dragon Disclaimer: Dragantoine Disclaimer: This electronic medical record was generated, in whole or in part, using a voice recognition dictation system. Departure Departure: Disposition: 01 DC HOME SELF CARE/HOMELESS Condition: STABLE Referrals: DEX BOYD MD (PCP) Scripts Diphenhydramine Hcl (BENADRYL ALLERGY) 25 Mg Tablet 25 MG PO QIDPRN PRN for allergies, #30 TAB Prov: TRAM HOWARD MD 08/15/20 Cephalexin (KEFLEX) 500 Mg Capsule 500 MG PO TID for uti, Bacterial vag, #30 % Prov: TRAM HOWARD MD 08/15/20 Yuriy Disclaimer This chart was dictated in whole or in part using Voice Recognition software in a busy, high-work load, and often noisy Emergency Department environment. It may contain unintended and wholly unrecognized errors or omissions. TRAM HOWARD MD Aug 15, 2020 18:26
--- NOTE | 2020-08-15 18:59 | EKG ---
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
[2020-08-15 19:10] LABS: BARBITURATES NEG (NEG); BENZODIAZEPINES NEG (NEG); BILIRUBIN,URINE NEG (NEG); CANNABINOIDS NEG (NEG); CLARITY,URINE HAZY; COCAINE NEG (NEG); COLOR,URINE YELLOW; GLUCOSE,URINE NEG (NEG); METHADONE NEG (NEG); OPIATES NEG (NEG); PHENCYCLIDINE NEG (NEG)
[2020-08-15 19:11] LABS: BACTERIA,URINE 0 /HPF (0-FEW); NITRITE,URINE NEG (NEG); RBC,URINE 0 /HPF (0-2); SQUAMOUS EPITHELIAL CELL,UR MOD /LPF
[2020-08-15 19:13] LABS: AMPHETAMINE/METHAMPHETAMINE NEG (NEG)
[2020-08-15] MEDS: FAMOTIDINE 20 MG/2 ML VIAL IVP ONE (19:35)
[2020-08-15] MEDS: IV RINGERS SOLUTION,LACTATED 1,000 ML IV SCH (19:35)
[2020-08-15] MEDS: ONDANSETRON PF 4 MG/2 ML VIAL. IVP ONE (19:37)
[2020-08-15] MEDS: ACETAMINOPHEN 500 MG TABLET PO ONE (19:37)
[2020-08-15 19:48] LABS: BASO % 1 % (0-3); EOS # 0.1 x10^3/uL (0.0-0.7); EOS % 1 % (0-3); HEMATOCRIT 41.5 % (36.0-47.0); HEMOGLOBIN 14.1 g/dL (12.0-15.5); LYMPH # 1.2 x10^3/uL (1.0-4.8); LYMPH % 19 % (24-48); MEAN CORPUSCULAR HEMOGLOBIN 32 pg (25-35); MEAN CORPUSCULAR HGB CONC 34 g/dL (31-37); MEAN CORPUSCULAR VOLUME 93 fL (79-100); MONO # 0.5 x10^3/uL (0.0-1.1); MONO % 7 % (0-9); NEUT # 4.8 x10^3uL (1.8-7.7); NEUT % 73 % (31-73); PLATELET COUNT 142 x10^3/uL (140-400); RED BLOOD COUNT 4.47 x10^6/uL (3.50-5.40); RED CELL DISTRIBUTION WIDTH 14.8 % (11.5-14.5); WHITE BLOOD COUNT 6.6 x10^3/uL (4.0-11.0)
[2020-08-15 19:59] LABS: CALCIUM 8.8 mg/dL (8.5-10.1); CREATININE 0.7 mg/dL (0.6-1.0); GFR 119.7; POTASSIUM 3.7 mmol/L (3.5-5.1)
[2020-08-15 20:06] LABS: ALBUMIN 3.3 g/dL (3.4-5.0); DIRECT BILIRUBIN 0.1 mg/dL (0.0-0.2); TOTAL BILIRUBIN 0.2 mg/dL (0.2-1.0); TOTAL PROTEIN 7.2 g/dL (6.4-8.2)
--- NOTE | 2020-08-15 20:20 | RAD ---
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 There is single viable intrauterine fetus in cephalic presentation. There is demonstrable cardiac activity 131 bpm. Subjectively amniotic fluid volume is within normal limits. There is no abnormality of the visualized maternal adnexal regions, ovaries not seen. Biometry data are as follows: Biparietal diameter 3.16 cm corresponds with 15 weeks 6 days, 48 percentile Head circumference 12.39 cm corresponds with 16 weeks 2 days, 56 percentile Abdominal circumference 10.89 cm corresponds with 16 weeks 5 days, 81% Femur length 2.24 cm corresponds with 16 weeks 5 days, 78 percentile HC/AC ratio1.14 within normal limits Adjusted ultrasound age 16 weeks 3 days corresponds with 01/27/2021 LMP age 15 weeks 6 days corresponds with 01/31/2021 Estimated weight 165 grams+/- 24grams Impression: 1. There is single viable intrauterine fetus in cephalic presentation. Electronically signed by: aHns Najera MD (08/15/2020 8:18 PM) [facility]
[2020-08-15] MEDS ORDERED: CEPH-264 PO (21:43)
[2020-08-15] MEDS ORDERED: diphenhydrAMINE HCL 25 MG CAPSULE PO ONE (21:57)
[2020-08-15] MEDS ORDERED: diphenhydrAMINE HCL 25 MG CAPSULE PO PRN (22:00)
[2020-08-15] MEDS: CEPHALEXIN 250 MG CAPSULE PO ONE (22:01)
[2020-08-15] MEDS: diphenhydrAMINE HCL 25 MG CAPSULE PO ONE (22:01)
[2020-08-15 22:02] VITALS: BP 134/104
[2020-08-15] MEDS ORDERED: DIPH25TA64 PO (22:03)
== END 2020-08-15 22:09 | disposition home or self-care (01) ==
LOC: ER 17:12
DX: O26.892 Other specified pregnancy related conditions, second trimester (principal); R07.89 Other chest pain; R10.84 Generalized abdominal pain; O99.342 Other mental disorders complicating pregnancy, second trimester; F41.9 Anxiety disorder, unspecified; F20.9 Schizophrenia, unspecified; G43.909 Migraine, unspecified, not intractable, without status migrainosus; O16.2 Unspecified maternal hypertension, second trimester; Z91.011 Allergy to milk products; Z88.8 Allergy status to other drugs, medicaments and biological substances; Z3A.15 15 weeks gestation of pregnancy
CPT/HCPCS: 36415; 76815; 80048; 80076; 80307; 81001; 82550; 83690; 84484; 84702; 85025; 85610; 85730; 86592; 86705; 86709; 86803; 86900; 86901; 87086; 87340; 93005; 96361; 96374; 96375; 99285; J2405; J3490; J7120; Q0162; Q0163; 87491; 87591

== ENCOUNTER 2020-08-16 14:34 | Emergency (ER) | payer MEDICAID ==
[~2020-08-16] VITALS: Ht 160 cm; Wt 104.1 kg
[~2020-08-16 14:34] MED LIST changes: +DIPH25TA64 PO
[2020-08-16 14:38] VITALS: BP 149/103
--- NOTE | 2020-08-16 15:22 | PHYS DOC ---
Past History Past Medical History: Anxiety, Hypertension, Migraines, Schizophrenia, UTI Additional Past Medical Histor: Castleman's disease, Lymphoproliferateive disorder Past Surgical History: Other Additional Past Surgical Histo: TUMOR REMOVED FROM RIGHT OVARY AND FALOPIAN TUBE Smoking: Non-smoker Alcohol Use: None Drug Use: None General Adult EDM: Chief Complaint: ANXIETY/PANIC ATTACK HPI: HPI: 30-year-old female returns the emergency room with abdominal pain and anxiety. Patient is well-known to the emergency room. She was seen by my colleague last night for similar complaints. She tells me nothing is really different. She has picked an OB at [facility]. That is where she will deliver. She gets occasional headaches but is not taking any medicine. She tells me that she is drinking plenty of fluids and eating. She denies any vaginal bleeding. Review of Systems: Review of Systems: Constitutional: Denies fever or chills Eyes: Denies change in visual acuity HENT: Denies nasal congestion or sore throat Respiratory: Denies cough or shortness of breath Cardiovascular: Denies chest pain or edema GI: Lower abdominal pain. Denies nausea, vomiting, bloody stools or diarrhea : Denies dysuria Musculoskeletal: Denies back pain or joint pain Integument: Denies rash Neurologic: Occasional headaches. Denies focal weakness or sensory changes Endocrine: Denies polyuria or polydipsia Lymphatic: Denies swollen glands Psychiatric: Denies depression or anxiety Heart Score: Risk Factors: Risk Factors: DM, Current or recent (<one month) smoker, HTN, HLP, family history of CAD, obesity. Risk Scores: Score 0 - 3: 2.5% MACE over next 6 weeks - Discharge Home Score 4 - 6: 20.3% MACE over next 6 weeks - Admit for Clinical Observation Score 7 - 10: 72.7% MACE over next 6 weeks - Early Invasive Strategies Allergies: Allergies: Allergies Coded Allergies Type Severity Reaction Last Updated Verified Milk Containing Products Allergy Intermediate 08/09/20 Yes lisinopril Allergy Intermediate 08/09/20 No Physical Exam: PE: Constitutional: Well developed, well nourished, morbidly obese, no acute distress, non-toxic appearance. [] HENT: Normocephalic, atraumatic, bilateral external ears normal, oropharynx moist, no oral exudates, nose normal. [] Eyes: PERRLA, EOMI, conjunctiva normal, no discharge. [] Neck: Normal range of motion, no tenderness, supple, no stridor. [] Cardiovascular:Heart rate regular rhythm, no murmur [] Lungs & Thorax: Bilateral breath sounds clear to auscultation [] Abdomen: Bowel sounds normal, gravid uterus, no masses, no pulsatile masses. [] Skin: Warm, dry, no erythema, no rash. [] Back: No tenderness, no CVA tenderness. [] Extremities: No tenderness, no cyanosis, no clubbing, ROM intact, no edema. [] Neurologic: Alert and oriented X 3, normal motor function, normal sensory function, no focal deficits noted. [] Psychologic: Affect normal, judgement normal, mood normal. [] Current Patient Data: Vital Signs: Vital Signs Date Time Temp Pulse Resp B/P (MAP) Pulse Ox O2 Delivery O2 Flow Rate FiO2 08/16/20 14:38 97.2 92 18 149/103 (118) 94 EKG: EKG: [] Radiology/Procedures: Radiology/Procedures: [] Course & Med Decision Making: Course & Med Decision Making Pertinent Labs and Imaging studies reviewed. (See chart for details) My colleague did an extensive work-up just a little over 12 hours ago. This included an ultrasound and pelvic exam. No significant abnormalities were found. She was recommended to follow-up with her METAL CHECKER. She has not done this. I related of anything else to look or anything to offer. She states verbal understanding. She is stable for discharge at this time. [] Dragon Disclaimer: Dragantoine Disclaimer: This electronic medical record was generated, in whole or in part, using a voice recognition dictation system. Departure Departure: Impression: Primary Impression: Pain in the abdomen Additional Impression: Disposition: 01 DC HOME SELF CARE/HOMELESS Condition: STABLE Referrals: DEX COLON MD (PCP) Patient Instructions: - Second Trimester, [id number] DONNIE SHELTON DO Aug 16, 2020 15:22
== END 2020-08-16 15:25 | disposition home or self-care (01) ==
LOC: ER 14:34
DX: O26.892 Other specified pregnancy related conditions, second trimester (principal); R10.30 Lower abdominal pain, unspecified; G43.909 Migraine, unspecified, not intractable, without status migrainosus; O16.2 Unspecified maternal hypertension, second trimester; O23.42 Unspecified infection of urinary tract in pregnancy, second trimester; O99.342 Other mental disorders complicating pregnancy, second trimester; Z91.011 Allergy to milk products; Z3A.16 16 weeks gestation of pregnancy; Z88.8 Allergy status to other drugs, medicaments and biological substances
CPT/HCPCS: 99283

== ENCOUNTER 2020-08-22 18:10 | Emergency (ER) | payer MEDICAID ==
[~2020-08-22] VITALS: Ht 160 cm; Wt 104.1 kg
[2020-08-22 18:47] LABS: BASO # 0.1 x10^3/uL (0.0-0.2); BASO % 1 % (0-3); EOS % 1 % (0-3); HEMATOCRIT 41.8 % (36.0-47.0); HEMOGLOBIN 14.4 g/dL (12.0-15.5); LYMPH # 1.2 x10^3/uL (1.0-4.8); LYMPH % 15 % (24-48); MEAN CORPUSCULAR HEMOGLOBIN 32 pg (25-35); MEAN CORPUSCULAR HGB CONC 34 g/dL (31-37); MEAN CORPUSCULAR VOLUME 93 fL (79-100); MONO # 0.5 x10^3/uL (0.0-1.1); MONO % 6 % (0-9); NEUT # 6.1 x10^3uL (1.8-7.7); NEUT % 78 % (31-73); PLATELET COUNT 144 x10^3/uL (140-400); RED BLOOD COUNT 4.52 x10^6/uL (3.50-5.40); RED CELL DISTRIBUTION WIDTH 14.5 % (11.5-14.5); WHITE BLOOD COUNT 7.8 x10^3/uL (4.0-11.0)
[2020-08-22 18:49] LABS: BILIRUBIN,URINE NEG (NEG); CLARITY,URINE HAZY; COLOR,URINE STRAW; GLUCOSE,URINE NEG (NEG); NITRITE,URINE NEG (NEG)
[2020-08-22 18:52] LABS: CALCIUM 9.2 mg/dL (8.5-10.1); CREATININE 0.7 mg/dL (0.6-1.0); GFR 119.7; POTASSIUM 3.8 mmol/L (3.5-5.1); RBC,URINE OCC /HPF (0-2)
[2020-08-22 18:53] LABS: BACTERIA,URINE FEW /HPF (0-FEW); SQUAMOUS EPITHELIAL CELL,UR FEW /LPF
[2020-08-22 18:57] LABS: ALBUMIN 3.5 g/dL (3.4-5.0); ALBUMIN/GLOBULIN RATIO 0.9 (1.0-1.7); TOTAL BILIRUBIN 0.3 mg/dL (0.2-1.0); TOTAL PROTEIN 7.4 g/dL (6.4-8.2)
[2020-08-22 18:59] LABS: AMPHETAMINE/METHAMPHETAMINE NEG (NEG); BARBITURATES NEG (NEG); BENZODIAZEPINES NEG (NEG); CANNABINOIDS NEG (NEG); COCAINE NEG (NEG); METHADONE NEG (NEG); OPIATES NEG (NEG); PHENCYCLIDINE NEG (NEG)
[2020-08-22] MEDS ORDERED: ACETAMINOPHEN 500 MG TABLET PO ONE (21:15)
--- NOTE | 2020-08-23 02:05 | PHYS DOC ---
Past History Past Medical History: Anxiety, Hypertension, Migraines, Schizophrenia, UTI Additional Past Medical Histor: Castleman's disease, Lymphoproliferateive disorder Past Surgical History: Other Additional Past Surgical Histo: TUMOR REMOVED FROM RIGHT OVARY AND FALOPIAN TUBE Smoking: Non-smoker Alcohol Use: None Drug Use: None Adult General Chief Complaint Chief Complaint: SUICIDAL IDEATION HPI HPI Patient is a 30-year-old female who presents via EMS for suicidal ideation. Patient well-known to our facility given numerous ER visits for anxiety related complaints. She is at this time and followed in outpatient setting by IT SUPPORT CONSULTANT, she has no concerning signs or symptoms related to current such as abdominal pain, vaginal bleeding or discharge etc., she continues to take her vitamin daily. Patient reports ongoing anxiety, has not established with local behavioral health specialist despite numerous attempts to do so. She reports active suicidal ideation without definite plan. She admits reoccurring thoughts of wanting to end her life and that she would be better off . She has no known suicide attempts in the past. Patient typically has flat affect but is more animated and emotional during today's encounter. Denies any change in home environment but admits it continues to be stressful Review of Systems Review of Systems Fourteen body systems of review of systems have been reviewed. See HPI for pertinent positives and negative responses, other [place] all other systems are negative, non-pertinent or non-contributory Current Medications Current Medications Current Medications Medications (Trade) Dose Ordered Sig/Andrzej Start Time Stop Time Status Last Admin Dose Admin Acetaminophen (Tylenol) 500 mg 1X ONCE 08/22/20 21:15 08/22/20 21:17 DC 08/22/20 21:11 500 MG Allergies Allergies Allergies Coded Allergies Type Severity Reaction Last Updated Verified Milk Containing Products Allergy Intermediate 08/09/20 Yes lisinopril Allergy Intermediate 08/09/20 No Physical Exam Physical Exam Constitutional: Well developed, well nourished, no acute distress, non-toxic appearance. HENT: Normocephalic, atraumatic, bilateral external ears normal, oropharynx moist, no oral exudates, nose normal. Eyes: PERRLA, EOMI, conjunctiva normal, no discharge. Neck: Normal range of motion, no tenderness, supple, no stridor. Cardiovascular: Heart rate regular, sinus rhythm, no murmurs rubs or gallops Lungs & Thorax: Bilateral breath sounds clear to auscultation Abdomen: Bowel sounds normal, prominent, soft, no tenderness, no masses, no pulsatile masses. heart tones 144 bpm, nonsurgical abdomen, no peritoneal signs Skin: Warm, dry, no erythema, no rash. Back: No tenderness, no CVA tenderness. Extremities: No tenderness, no cyanosis, no clubbing, ROM intact, no edema. Neurologic: Alert and oriented X 3, grossly normal motor & sensory function, no focal deficits noted. Psychologic: Flat affect, judgement normal, depressed mood, admits active suicidal ideation Current Patient Data Vital Signs Vital Signs Date Time Temp Pulse Resp B/P (MAP) Pulse Ox O2 Delivery O2 Flow Rate FiO2 08/22/20 18:32 98.1 112 18 148/131 (137) 100 Lab Results Laboratory Tests Test 08/22/20 18:20 08/22/20 18:30 White Blood Count 7.8 x10^3/uL (4.0-11.0) Red Blood Count 4.52 x10^6/uL (3.50-5.40) Hemoglobin 14.4 g/dL (12.0-15.5) Hematocrit 41.8 % (36.0-47.0) Mean Corpuscular Volume 93 fL (79-100) Mean Corpuscular Hemoglobin 32 pg (25-35) Mean Corpuscular Hemoglobin Concent 34 g/dL (31-37) Red Cell Distribution Width 14.5 % (11.5-14.5) Platelet Count 144 x10^3/uL (140-400) Neutrophils (%) (Auto) 78 % (31-73) H Lymphocytes (%) (Auto) 15 % (24-48) L Monocytes (%) (Auto) 6 % (0-9) Eosinophils (%) (Auto) 1 % (0-3) Basophils (%) (Auto) 1 % (0-3) Neutrophils # (Auto) 6.1 x10^3uL (1.8-7.7) Lymphocytes # (Auto) 1.2 x10^3/uL (1.0-4.8) Monocytes # (Auto) 0.5 x10^3/uL (0.0-1.1) Eosinophils # (Auto) 0.0 x10^3/uL (0.0-0.7) Basophils # (Auto) 0.1 x10^3/uL (0.0-0.2) Urine Collection Type Unknown Urine Color Straw Urine Clarity Hazy Urine pH 6.0 Urine Specific [place] 1.025 Urine Protein Neg (NEG-TRACE) Urine Glucose (UA) Neg mg/dL (NEG) Urine Ketones (Stick) Neg mg/dL (NEG) Urine Blood Neg (NEG) Urine Nitrite Neg (NEG) Urine Bilirubin Neg (NEG) Urine Urobilinogen Dipstick 2.0 mg/dL (0.2 mg/dL) Urine Leukocyte Esterase Small (NEG) Urine RBC Occ /HPF (0-2) Urine WBC 11-20 /HPF (0-4) Urine Squamous Epithelial Cells Few /LPF Urine Bacteria Few /HPF (0-FEW) Sodium Level 133 mmol/L (136-145) L Potassium Level 3.8 mmol/L (3.5-5.1) Chloride Level 102 mmol/L (98-107) Carbon Dioxide Level 19 mmol/L (21-32) L Anion Gap 12 (6-14) Blood Urea Nitrogen 9 mg/dL (7-20) Creatinine 0.7 mg/dL (0.6-1.0) Estimated GFR (Cockcroft-Gault) 119.7 BUN/Creatinine Ratio 13 (6-20) Glucose Level 93 mg/dL (70-99) Calcium Level 9.2 mg/dL (8.5-10.1) Total Bilirubin 0.3 mg/dL (0.2-1.0) Aspartate Amino Transferase (AST) 9 U/L (15-37) L Alanine Aminotransferase (ALT) 17 U/L (14-59) Alkaline Phosphatase 55 U/L (46-116) Total Protein 7.4 g/dL (6.4-8.2) Albumin 3.5 g/dL (3.4-5.0) Albumin/Globulin Ratio 0.9 (1.0-1.7) L Urine Opiates Screen Neg (NEG) Urine Methadone Screen Neg (NEG) Urine Barbiturates Neg (NEG) Urine Phencyclidine Screen Neg (NEG) Urine Amphetamine/Methamphetamine Neg (NEG) Urine Benzodiazepines Screen Neg (NEG) Urine Cocaine Screen Neg (NEG) Urine Cannabinoids Screen Neg (NEG) Urine Ethyl Alcohol Neg (NEG) EKG EKG [] Radiology/Procedures Radiology/Procedures [] Course & Med Decision Making Course & Med Decision Making Patient seen on immediate ER arrival ABCs nonconcerning Comprehensive history and physical exam obtained, no emergent and/or surgical findings at present There is clinical concern for patient's ability to care for self, I have fear of self-harm if discharged home. As such, patient medically cleared and local guidance/crisis center consulted for evaluation. They ultimately recommended inpatient psychiatric placement Patient was ultimately accepted at [facility] under the care of Dr. Mehdi Burrell at 0150 Patient notified of this and was amenable as she has been wanting inpatient psychiatric treatment for some time now All questions and concerns addressed prior to ER transport to inpatient psychiatric facility for continued medical care Dragon Disclaimer Dragon Disclaimer This electronic medical record was generated, in whole or in part, using a voice recognition dictation system. Departure Departure: Impression: Primary Impression: Suicidal ideation Additional Impressions: Anxiety and not yet delivered in first trimester Disposition: 65 DC/TRF TO PSYCH HOSP Admitting Physician: Other (Dr. Mehdi Burrell) Condition: STABLE Referrals: DEX COLON MD (PCP) Problem Qualifiers ADITI TANNER DO Aug 23, 2020 02:05
[2020-08-23 02:43] VITALS: BP 131/90
== END 2020-08-23 02:44 ==
LOC: ER 18:10
DX: O99.341 Other mental disorders complicating pregnancy, first trimester (principal); R45.851 Suicidal ideations; F41.9 Anxiety disorder, unspecified; G43.909 Migraine, unspecified, not intractable, without status migrainosus; O23.41 Unspecified infection of urinary tract in pregnancy, first trimester; O16.9 Unspecified maternal hypertension, unspecified trimester; Z3A.00 Weeks of gestation of pregnancy not specified; Z88.8 Allergy status to other drugs, medicaments and biological substances; Z91.018 Allergy to other foods
CPT/HCPCS: 36415; 80053; 80307; 81001; 85025; 87086; 99285

== ENCOUNTER 2020-09-07 13:16 | Emergency (ER) | payer MEDICAID ==
[~2020-09-07] VITALS: Ht 160 cm; Wt 104.1 kg
[2020-09-07 13:22] VITALS: BP 153/94
--- NOTE | 2020-09-07 13:47 | PHYS DOC ---
Past History Past Medical History: Anxiety, Hypertension, Migraines, Schizophrenia, UTI Additional Past Medical Histor: Castleman's disease, Lymphoproliferateive disorder (DONNIE SHELTON DO) Past Surgical History: Other Additional Past Surgical Histo: TUMOR REMOVED FROM RIGHT OVARY AND FALOPIAN TUBE (DONNIE SHELTON DO) Smoking: Non-smoker Alcohol Use: None Drug Use: None (DONNIE SHELTON DO) General Adult EDM: Chief Complaint: SUICIDAL IDEATION HPI: HPI: 30-year-old female presents with suicidal ideation and anxiety. She is not having thoughts about this quite a bit lately. She is about 29 weeks. She is well-known to the emergency room. She frequently comes here for anxiety. She denies any medical complaints this time. She denies any vaginal bleeding or unusual abdominal pain. She is feeling the baby move quite a bit. She denies fever or chills. (DONNIE SHELTON DO) Review of Systems: Review of Systems: Constitutional: Denies fever or chills Eyes: Denies change in visual acuity HENT: Denies nasal congestion or sore throat Respiratory: Denies cough or shortness of breath Cardiovascular: Denies chest pain or edema GI: Denies abdominal pain, nausea, vomiting, bloody stools or diarrhea : Denies dysuria Musculoskeletal: Denies back pain or joint pain Integument: Denies rash Neurologic: Denies headache, focal weakness or sensory changes Endocrine: Denies polyuria or polydipsia Lymphatic: Denies swollen glands Psychiatric: Depression and anxiety (DONNIE SHELTON DO) Allergies: Allergies: Allergies Coded Allergies Type Severity Reaction Last Updated Verified Milk Containing Products Allergy Intermediate 08/09/20 Yes lisinopril Allergy Intermediate 08/09/20 No (DONNIE SHELTON DO) Physical Exam: PE: Constitutional: Well developed, well nourished, obese, no acute distress, non- toxic appearance. [] HENT: Normocephalic, atraumatic, bilateral external ears normal, oropharynx moist, no oral exudates, nose normal. [] Eyes: PERRLA, EOMI, conjunctiva normal, no discharge. [] Neck: Normal range of motion, no tenderness, supple, no stridor. [] Cardiovascular: Heart rate regular rhythm, no murmur [] Lungs & Thorax: Bilateral breath sounds clear to auscultation [] Abdomen: Bowel sounds normal, soft, no tenderness, no masses, no pulsatile masses. [] Skin: Warm, dry, no erythema, no rash. [] Back: No tenderness, no CVA tenderness. [] Extremities: No tenderness, no cyanosis, no clubbing, ROM intact, no edema. [] Neurologic: Alert and oriented X 3, normal motor function, normal sensory function, no focal deficits noted. [] Psychologic: Affect flat, judgement normal, mood depressed. [] (DONNIE SHELTON DO) Current Patient Data: Vital Signs: Vital Signs Date Time Temp Pulse Resp B/P (MAP) Pulse Ox O2 Delivery O2 Flow Rate FiO2 09/07/20 13:22 98.5 101 18 153/94 (113) 98 (DONNIE SHELTON DO) EKG: EKG: [] (DONNIE SHELTON DO) Radiology/Procedures: Radiology/Procedures: [] (DONNIE SHELTON DO) Heart Score: Risk Factors: Risk Factors: DM, Current or recent (<one month) smoker, HTN, HLP, family history of CAD, obesity. Risk Scores: Score 0 - 3: 2.5% MACE over next 6 weeks - Discharge Home Score 4 - 6: 20.3% MACE over next 6 weeks - Admit for Clinical Observation Score 7 - 10: 72.7% MACE over next 6 weeks - Early Invasive Strategies (DONNIE SHELTON DO) Course & Med Decision Making: Course & Med Decision Making Pertinent Labs and Imaging studies reviewed. (See chart for details) The patient's labs were unremarkable except for a potassium of 3.3. She is medically stable for psychiatric evaluation. The psychiatric screener has determined the patient would benefit from inpatient admission. We are attempting placement at [facility]. I am signing the patient out to Dr. Henriquez at 1800. [] (DONNIE SHELTON DO) Course & Med Decision Making See Dr. Shelton chart for details. Pt. decline transfer to Psych. Hospital and wants to go home. Pt. was to be voluntary admission. Patient discharged home with plan follow-up at counseling center. Impression: 1. 2. Depression (TRAM HENRIQUEZ MD) Dragon Disclaimer: Dragon Disclaimer: This electronic medical record was generated, in whole or in part, using a voice recognition dictation system. (SHELTON,DONNIE DO) Departure Departure: Impression: Primary Impression: Suicidal ideation Disposition: 65 DC/TRF TO PSYCH HOSP Condition: STABLE Referrals: DEX COLON MD (PCP) DONNIE SHELTON DO Sep 07, 2020 13:47 TRAM HENRIQUEZ MD Sep 08, 2020 06:45
[2020-09-07 14:02] LABS: BASO % 0 % (0-3); EOS # 0.1 x10^3/uL (0.0-0.7); EOS % 2 % (0-3); HEMATOCRIT 38.9 % (36.0-47.0); HEMOGLOBIN 13.4 g/dL (12.0-15.5); LYMPH # 1.2 x10^3/uL (1.0-4.8); LYMPH % 16 % (24-48); MEAN CORPUSCULAR HEMOGLOBIN 32 pg (25-35); MEAN CORPUSCULAR HGB CONC 34 g/dL (31-37); MEAN CORPUSCULAR VOLUME 94 fL (79-100); MONO # 0.4 x10^3/uL (0.0-1.1); MONO % 6 % (0-9); NEUT # 5.6 x10^3uL (1.8-7.7); NEUT % 76 % (31-73); PLATELET COUNT 152 x10^3/uL (140-400); RED BLOOD COUNT 4.16 x10^6/uL (3.50-5.40); RED CELL DISTRIBUTION WIDTH 13.8 % (11.5-14.5); WHITE BLOOD COUNT 7.3 x10^3/uL (4.0-11.0)
[2020-09-07 14:11] LABS: CALCIUM 8.6 mg/dL (8.5-10.1); CREATININE 0.7 mg/dL (0.6-1.0); GFR 119.7; POTASSIUM 3.3 mmol/L (3.5-5.1)
[2020-09-07 14:18] LABS: ALBUMIN/GLOBULIN RATIO 0.8 (1.0-1.7); TOTAL BILIRUBIN 0.2 mg/dL (0.2-1.0); TOTAL PROTEIN 6.6 g/dL (6.4-8.2)
[2020-09-07 14:45] LABS: AMPHETAMINE/METHAMPHETAMINE NEG (NEG); BARBITURATES NEG (NEG); BENZODIAZEPINES NEG (NEG); CANNABINOIDS NEG (NEG); COCAINE NEG (NEG); METHADONE NEG (NEG); OPIATES NEG (NEG); PHENCYCLIDINE NEG (NEG)
[2020-09-07 14:51] LABS: BILIRUBIN,URINE NEG (NEG); CLARITY,URINE CLEAR; COLOR,URINE YELLOW; GLUCOSE,URINE NEG (NEG); NITRITE,URINE NEG (NEG); UROBILINOGEN,URINE 0.2 mg/dL (0.2 mg/dL)
[2020-09-07 14:53] LABS: BACTERIA,URINE 0 /HPF (0-FEW); RBC,URINE 0 /HPF (0-2); SQUAMOUS EPITHELIAL CELL,UR MOD /LPF; WBC,URINE OCC /HPF (0-4)
[2020-09-07] MEDS ORDERED: ACETAMINOPHEN 325 MG TABLET PO ONE (17:51)
[2020-09-07] MEDS ORDERED: diphenhydrAMINE HCL 25 MG CAPSULE PO ONE (19:45)
== END 2020-09-07 22:36 | disposition home or self-care (01) ==
LOC: ER 14:10
DX: O99.343 Other mental disorders complicating pregnancy, third trimester (principal); R45.851 Suicidal ideations; F32.9 Major depressive disorder, single episode, unspecified; F41.9 Anxiety disorder, unspecified; G43.909 Migraine, unspecified, not intractable, without status migrainosus; O23.43 Unspecified infection of urinary tract in pregnancy, third trimester; O16.3 Unspecified maternal hypertension, third trimester; Z3A.29 29 weeks gestation of pregnancy; Z91.011 Allergy to milk products; Z88.8 Allergy status to other drugs, medicaments and biological substances
CPT/HCPCS: 36415; 80053; 80307; 81001; 85025; 87086; 99285; Q0163

== ENCOUNTER 2020-09-08 19:04 | Emergency (ER) | payer MEDICAID ==
[~2020-09-08] VITALS: Ht 160 cm; Wt 104.1 kg
[2020-09-08 19:44] LABS: BARBITURATES NEG (NEG); BENZODIAZEPINES NEG (NEG); CANNABINOIDS NEG (NEG); COCAINE NEG (NEG); METHADONE NEG (NEG); OPIATES NEG (NEG); PHENCYCLIDINE NEG (NEG)
[2020-09-08 19:46] LABS: BILIRUBIN,URINE NEG (NEG); CLARITY,URINE HAZY; COLOR,URINE YELLOW; GLUCOSE,URINE NEG (NEG)
[2020-09-08 19:47] LABS: BACTERIA,URINE MOD /HPF (0-FEW); NITRITE,URINE NEG (NEG); RBC,URINE 0 /HPF (0-2); SQUAMOUS EPITHELIAL CELL,UR MANY /LPF; UROBILINOGEN,URINE 0.2 mg/dL (0.2 mg/dL)
--- NOTE | 2020-09-08 19:47 | PHYS DOC ---
Past History Past Medical History: Anxiety, Hypertension, Migraines, Schizophrenia, UTI Additional Past Medical Histor: Castleman's disease, Lymphoproliferateive disorder (GABRIELA CHRISTY APRN) Past Surgical History: Other Additional Past Surgical Histo: TUMOR REMOVED FROM RIGHT OVARY AND FALOPIAN TUBE (GABRIELA CHRISTY APRN) Smoking: Non-smoker Alcohol Use: None Drug Use: None (GABRIELA CHRISTY APRN) Adult General Chief Complaint Chief Complaint: PS[facility]CH EVALUATION [facility] HPI Patient is a 30-year-old female with history of schizophrenia, anxiety, HTN, 2 para 1 currently 5 weeks presenting to the ED today complaining of having bad thoughts. Patient denies any suicidal homicidal ideations. She states since she has been she has been hearing voices talking to her. She states sometimes they tell her "really". She states since she got she informed the father of the baby about the , he denied responsibility and stated he is not the father. She states this makes her cry a lot. She is currently tearful as she speaks. She states she has a mother and her father but does not get much emotional support from them. She states she keeps crying for no reason during this . She states everyone will be better off with her but does not have any plan of killing herself. She states she has been following up with an OBGYN for her care. (GABRIELA CHRISTY APRN) Review of Systems Review of Systems Constitutional: Denies fever or chills [] Eyes: Denies change in visual acuity, redness, or eye pain [] HENT: Denies nasal congestion or sore throat [] Respiratory: Denies cough or shortness of breath [] Cardiovascular: No additional information not addressed in HPI [] GI: Reports . Denies abdominal pain, nausea, vomiting, bloody stools or diarrhea [] : Denies dysuria or hematuria [] Musculoskeletal: Denies back pain or joint pain [] Integument: Denies rash or skin lesions [] Neurologic: Denies headache, focal weakness or sensory changes [] pysch: Reports bad thoughts, hearing voices All other systems were reviewed and found to be within normal limits, except as documented in this note. (GABRIELA CHRISTY APRN) Allergies Allergies Allergies Coded Allergies Type Severity Reaction Last Updated Verified Milk Containing Products Allergy Intermediate 08/09/20 Yes lisinopril Allergy Intermediate 08/09/20 No (KEEGANGABRIELA Melendrez APRN) Physical Exam Physical Exam Constitutional: Well developed, well nourished, no acute distress, non-toxic appearance. [] HENT: Normocephalic, atraumatic, bilateral external ears normal, oropharynx moist, no oral exudates, nose normal. [] Eyes: PERRLA, EOMI, conjunctiva normal, no discharge. [] Neck: Normal range of motion, no tenderness, supple, no stridor. [] Cardiovascular:Heart rate regular rhythm, no murmur [] Lungs & Thorax: Bilateral breath sounds clear to auscultation [] Abdomen: Gravid abdomen. Bowel sounds normal, soft, no tenderness, no masses, no pulsatile masses. [] Skin: Warm, dry, no erythema, no rash. [] Back: No tenderness, no CVA tenderness. [] Extremities: No tenderness, no cyanosis, no clubbing, ROM intact, no edema. [] Neurologic: Alert and oriented X 3, normal motor function, normal sensory function, no focal deficits noted. [] Psychologic: Flat affect, very tearful. Depressed mood. (GABRIELA CHRISTY APRN) Current Patient Data Lab Results Laboratory Tests Test 09/08/20 19:14 09/08/20 20:47 Urine Collection Type Unknown Urine Color Yellow Urine Clarity Hazy Urine pH 6.5 Urine Specific [place] 1.025 Urine Protein Neg Urine Glucose (UA) Neg mg/dL Urine Ketones (Stick) Neg mg/dL Urine Blood Neg Urine Nitrite Neg Urine Bilirubin Neg Urine Urobilinogen Dipstick 0.2 mg/dL Urine Leukocyte Esterase Small Urine RBC 0 /HPF Urine WBC 1-4 /HPF Urine Squamous Epithelial Cells Many /LPF Urine Bacteria Mod /HPF Urine Opiates Screen Neg Urine Methadone Screen Neg Urine Barbiturates Neg Urine Phencyclidine Screen Neg Urine Amphetamine/Methamphetamine Neg Urine Benzodiazepines Screen Neg Urine Cocaine Screen Neg Urine Cannabinoids Screen Neg Urine Ethyl Alcohol Neg White Blood Count 7.1 x10^3/uL Red Blood Count 4.24 x10^6/uL Hemoglobin 13.8 g/dL Hematocrit 40.0 % Mean Corpuscular Volume 94 fL Mean Corpuscular Hemoglobin 33 pg Mean Corpuscular Hemoglobin Concent 35 g/dL Red Cell Distribution Width 13.7 % Platelet Count 151 x10^3/uL Neutrophils (%) (Auto) 71 % Lymphocytes (%) (Auto) 21 % Monocytes (%) (Auto) 7 % Eosinophils (%) (Auto) 1 % Basophils (%) (Auto) 0 % Neutrophils # (Auto) 5.0 x10^3uL Lymphocytes # (Auto) 1.4 x10^3/uL Monocytes # (Auto) 0.5 x10^3/uL Eosinophils # (Auto) 0.1 x10^3/uL Basophils # (Auto) 0.0 x10^3/uL Sodium Level 135 mmol/L Potassium Level 4.2 mmol/L Chloride Level 101 mmol/L Carbon Dioxide Level 25 mmol/L Anion Gap 9 Blood Urea Nitrogen 10 mg/dL Creatinine 0.7 mg/dL Estimated GFR (Cockcroft-Gault) 119.7 BUN/Creatinine Ratio 14 Glucose Level 87 mg/dL Calcium Level 8.9 mg/dL Total Bilirubin 0.1 mg/dL Aspartate Amino Transf (AST/SGOT) 8 U/L Alanine Aminotransferase (ALT/SGPT) 23 U/L Alkaline Phosphatase 53 U/L Total Protein 7.1 g/dL Albumin 3.2 g/dL Albumin/Globulin Ratio 0.8 Lipase 52 U/L Salicylates Level < 2.8 mg/dL Salicylate Last Dose Date None Salicylate Last Dose Time None Acetaminophen Level < 2.0 mcg/mL Acetaminophen Last Dose Date None Acetaminophen Last Dose Time None Ethyl Alcohol Level < 10 mg/dL Current Medications Medications (Trade) Dose Ordered Sig/Andrzej Route PRN Reason Start Time Stop Time Status Last Admin Dose Admin Acetaminophen (Tylenol) 325 mg STK-MED ONCE PO 09/08/20 20:29 09/08/20 20:29 DC Acetaminophen (Tylenol) 650 mg 1X ONCE PO 09/08/20 20:30 09/08/20 21:01 DC 09/08/20 20:42 (MELLISSA ARTEAGA DO) EKG EKG [] (GABRIELA CHRISTY APRN) Radiology/Procedures Radiology/Procedures [] (GABRIELA CHRISTY APRN) Heart Score Risk Factors: Risk Factors: DM, Current or recent (<one month) smoker, HTN, HLP, family history of CAD, obesity. Risk Scores: Risk Factors: DM, Current or recent (<one month) smoker, HTN, HLP, family history of CAD, obesity. (GABRIELA CHRISTY APRN) Course & Med Decision Making Course & Med Decision Making Pertinent Labs and Imaging studies reviewed. (See chart for details) This is a 30-year-old female patient with history of schizophrenia, anxiety, HTN, currently 5 months 2 para 1 presenting to the ED today complaining of hearing voices, having bad thoughts, crying alot for 5 months. She was in the ED yesterday and she was instructed to follow-up with the [facility] but did not follow up. She appears depressed and is currently crying as we speak. FHT 155 CBC, CMP with nothing really acute. UA noted for small amount of leukocytes but is contaminated with squamous cells. BP on arrival 160/104 with HR of114 on arrival. BP will be rechecked before we decide to treat her. She has hx of HTN and compliance is a big issue. Care transferred to Dr. Arteaga. (GABRIELA CHRISTY APRN) Course & Med Decision Making 4 Case discussed with the [facility] screener. We will try to see about inpatient admission at a psychiatric facility that can handle her . [facility] will not feel to take this patient. Perhaps [facility] can and they are looking into a bed there. heart tones 150s on arrival. There is no obvious related complaints. Patient has been noncompliant with her blood pressure medication and outpatient treatment for psychiatric services 2330 screener looking for a placement facility at this time. Patient's WOOD CASKET MAKER is at [facility]. They are requesting a Covid swab at this time and will not take the patient until there is a negative result 0030 patient talk to staff and was considering leaving AGAINST MEDICAL ADVICE. I do not have criteria to hold her for involuntary commitment. We had a lengthy discussion now she is change her mind and will stay. At this point we are needing to get her negative Covid results before she can be sent to a larger facility such as [facility]. Screener has been directly involved in helping get her placed. Patient is not actively suicidal or homicidal at this time. Patient current lives in an apartment by herself 0125 stable, resting comfortably. Patient has had repeat heart tones ritika cked since arrival and they remain normal in the 150s. Awaiting completion of the Covid swab so that patient may be transferred to a facility that has both psychiatric and OB services available 0450 patient has changed her mind again and no longer wishes to be transferred to facility for psychiatric and obstetrics capability. Patient was advised to leave against advice could result in or disability. I do not have criteria to involuntarily commit this patient. She was under voluntary admission orders from the screener. Patient clearly states she is not suicidal or homicidal at this time. Patient was advised that should she change her mind she is welcome to return at any time for evaluation (MELLISSA ARTEAGA DO) Dragon Disclaimer Dragon Disclaimer This electronic medical record was generated, in whole or in part, using a voice recognition dictation system. (GABRIELA CHRISTY APRN) Departure Departure: Impression: Primary Impression: Hypertension Additional Impressions: Depression Hallucinations, unspecified Disposition: AMA/ELOPED/LWBS Condition: STABLE Referrals: DEX COLON MD (PCP) Patient Instructions: ABCs of , Hallucinogens Additional Instructions: You have opted to leave the hospital against medical advise. You may return anytime you change your mind about psychiatric assessment and admission. Scripts Labetalol Hcl (LABETALOL HCL) 100 Mg Tablet 1 TAB PO BID for hypertension, #20 TAB 5 Refills Prov: MELLISSA ARTEAGA DO 09/09/20 Problem Qualifiers Primary Impression: Hypertension Hypertension type: unspecified Qualified Codes: I10 - Essential (primary) hypertension Additional Impressions: Depression Depression Type: unspecified Qualified Codes: F32.9 - Major depressive disorder, single episode, unspecified Weeks of gestation: 29 weeks Qualified Codes: Z3A.29 - 29 weeks gestation of GABRIELA CHRISTY APRN Sep 08, 2020 19:47 MELLISSA ARTEAGA DO Sep 08, 2020 21:55
[2020-09-08 19:49] LABS: AMPHETAMINE/METHAMPHETAMINE NEG (NEG)
[2020-09-08] MEDS ORDERED: ACETAMINOPHEN 325 MG TABLET PO ONE ×3 (20:29→23:30)
[2020-09-08 21:20] LABS: BASO % 0 % (0-3); EOS # 0.1 x10^3/uL (0.0-0.7); EOS % 1 % (0-3); HEMOGLOBIN 13.8 g/dL (12.0-15.5); LYMPH # 1.4 x10^3/uL (1.0-4.8); LYMPH % 21 % (24-48); MEAN CORPUSCULAR HEMOGLOBIN 33 pg (25-35); MEAN CORPUSCULAR HGB CONC 35 g/dL (31-37); MEAN CORPUSCULAR VOLUME 94 fL (79-100); MONO # 0.5 x10^3/uL (0.0-1.1); MONO % 7 % (0-9); NEUT % 71 % (31-73); PLATELET COUNT 151 x10^3/uL (140-400); RED BLOOD COUNT 4.24 x10^6/uL (3.50-5.40); RED CELL DISTRIBUTION WIDTH 13.7 % (11.5-14.5); WHITE BLOOD COUNT 7.1 x10^3/uL (4.0-11.0)
[2020-09-08 21:24] LABS: CALCIUM 8.9 mg/dL (8.5-10.1); CREATININE 0.7 mg/dL (0.6-1.0); GFR 119.7; POTASSIUM 4.2 mmol/L (3.5-5.1)
[2020-09-08 21:30] LABS: ALBUMIN 3.2 g/dL (3.4-5.0); ALBUMIN/GLOBULIN RATIO 0.8 (1.0-1.7); TOTAL BILIRUBIN 0.1 mg/dL (0.2-1.0); TOTAL PROTEIN 7.1 g/dL (6.4-8.2)
[2020-09-08 21:53] LABS: ACETAMIN < 2.0 mcg/mL (10-30); ETHANOL < 10 mg/dL (0-10); SALIC < 2.8 mg/dL (2.8-20.0)
[2020-09-09] MEDS ORDERED: diphenhydrAMINE HCL 25 MG CAPSULE PO ONE ×3 (01:00→21:45)
[2020-09-09] MEDS ORDERED: LABE100T5 PO (04:54)
[2020-09-09] MEDS ORDERED: SERT50TA PO (11:37)
[2020-09-09] MEDS: PRENATAL MULTIVITAMIN TABLET. PO SCH (11:43)
[2020-09-09] MEDS ORDERED: SERTRALINE 50 MG TABLET. PO ONE (11:45)
[2020-09-10] MEDS ORDERED: SERTRALINE 50 MG TABLET. PO ONE (09:00)
[2020-09-10] MEDS: PRENATAL MULTIVITAMIN TABLET. PO SCH (11:02)
[2020-09-10] MEDS ORDERED: ONDANSETRON ODT 4 MG TAB.RAPDIS PO ONE (15:15)
[2020-09-10] MEDS ORDERED: ACETAMINOPHEN 325 MG TABLET PO ONE (15:15)
[2020-09-10] MEDS ORDERED: oxyCODONE/APAP 5/325 1 TAB TABLET PO ONE (22:30)
[2020-09-11 09:00] VITALS: BP 156/99
[2020-09-11] MEDS: PRENATAL MULTIVITAMIN TABLET. PO SCH (09:35)
[2020-09-11] MEDS ORDERED: ACETAMINOPHEN 500 MG TABLET PO ONE (09:45)
[2020-09-11] MEDS ORDERED: diphenhydrAMINE HCL 25 MG CAPSULE PO ONE (10:00)
== END 2020-09-11 12:24 | disposition left against medical advice (07) ==
LOC: ER 19:04 → EEVIPCON 19:04 → ER 09-11 12:24
DX: O99.342 Other mental disorders complicating pregnancy, second trimester (principal); F32.9 Major depressive disorder, single episode, unspecified; O16.1 Unspecified maternal hypertension, first trimester; R44.0 Auditory hallucinations; G43.909 Migraine, unspecified, not intractable, without status migrainosus; O23.42 Unspecified infection of urinary tract in pregnancy, second trimester; Z3A.20 20 weeks gestation of pregnancy; Z88.8 Allergy status to other drugs, medicaments and biological substances; Z91.011 Allergy to milk products
CPT/HCPCS: 36415; 80053; 80307; 80329; 81001; 83690; 85025; 99285; G0480; Q0163; U0003

== ENCOUNTER 2020-09-19 11:11 | Emergency (ER) | payer MEDICAID ==
[~2020-09-19] VITALS: Ht 160 cm; Wt 112.2 kg
[~2020-09-19 11:11] MED LIST changes: +LABE100T5 PO; +SERT50TA PO
--- NOTE | 2020-09-19 11:26 | PHYS DOC ---
Past History Past Medical History: Anxiety, Depression, Hypertension, Migraines, Schizophrenia, UTI Additional Past Medical Histor: Castleman's disease, Lymphoproliferateive disorder Past Surgical History: Other Additional Past Surgical Histo: TUMOR REMOVED FROM RIGHT OVARY AND FALLOPIAN TUBE Smoking: Non-smoker Alcohol Use: None Drug Use: None General Adult EDM: Chief Complaint: ABDOMINAL PAIN HPI: HPI: Patient is a 30-year-old at 21 weeks gestational age coming in for right lower quadrant abdominal pain since last night. Last night had one episode of emesis that was nonbloody or bilious. Patient denies any diarrhea or constipation. Patient says pain does not change with food but is worse with walking. Denies any urinary complaints, vaginal bleeding or discharge. States pain is sharp and does not radiate. Denies any loss of fluid, feeling baby move. Was recently at [facility] and prescribed Latuda but she has stopped taking it because she read that it is not recommended for third trimester . Review of Systems: Review of Systems: Constitutional: Denies fever or chills Eyes: Denies change in visual acuity HENT: Denies nasal congestion or sore throat Respiratory: Denies cough or shortness of breath Cardiovascular: Denies chest pain or edema GI: Abdominal pain and emesis, no diarrhea or constipation : Denies dysuria, denies vaginal bleeding or discharge, no loss of fluid Musculoskeletal: Denies back pain or joint pain Integument: Denies rash Neurologic: Denies headache, focal weakness or sensory changes Endocrine: Denies polyuria or polydipsia Lymphatic: Denies swollen glands Psychiatric: Denies depression or anxiety Allergies: Allergies: Allergies Coded Allergies Type Severity Reaction Last Updated Verified Milk Containing Products Allergy Intermediate 08/09/20 Yes lisinopril Allergy Intermediate 08/09/20 No Physical Exam: PE: Constitutional: Well developed, well nourished, no acute distress, non-toxic appearance. [] HENT: Normocephalic, atraumatic, bilateral external ears normal, oropharynx moist, no oral exudates, nose normal. [] Eyes: PERRLA, EOMI, conjunctiva normal, no discharge. [] Neck: Normal range of motion, no tenderness, supple, no stridor. [] Cardiovascular:Heart rate regular rhythm, no murmur [] Lungs & Thorax: Bilateral breath sounds clear to auscultation [] Abdomen: Gravid, guarding and rebound right lower quadrant Skin: Warm, dry, no erythema, no rash. [] Back: No tenderness, no CVA tenderness. [] Extremities: No tenderness, no cyanosis, no clubbing, ROM intact, no edema. [] Neurologic: Alert and oriented X 3, normal motor function, normal sensory function, no focal deficits noted. [] Psychologic: Affect normal, judgement normal, mood normal. [] EKG: EKG: [] Radiology/Procedures: Radiology/Procedures: Examination: OB LIMITED History: Reason: RLQ pain, r/o appy / Spl. Instructions: / History: Comparison/Correlation: 08/15/2020 ultrasound exam Findings: Single intrauterine gestation is present. Anterior wall location of the placenta is present. movement is present with heart rate of 121 bpm. Normal quantity of amniotic fluid is present. Biparietal diameter is 5 cm corresponding 21 weeks 1 day Head circumference is 18.9 cm corresponding 21 weeks 1 day Abdominal circumference is 16 cm corresponding to 21 weeks 1 day Femur length is 3.62 cm corresponding to 20 weeks 3 days Head circumference to abdominal circumference ratio is 1.18 Estimated weight is 411 g Gestational age is 21 weeks 2 days by ultrasound with EDC of 01/28/2021 Maternal uterine cervix is closed with a length of 2.9 cm. Impression: Single living intrauterine gestation with age of 21 weeks 2 days by ultrasound. No suspicious process. [] Ultrasound right lower quadrant abdomen. INDICATION: 30-year-old female with right lower quadrant abdominal pain. TECHNIQUE: Grayscale and color Doppler imaging of the right lower quadrant abdomen was performed with freeze-frame documentation of imaging findings including cine loop clips. Technologist reports patient has rebound tenderness. FINDINGS: A tubular structure in the right lower quadrant abdomen is identified but the blind end of an appendix is not confidently visualized. The tubular structure measures 8 mm in diameter. There is no fluid collection identified in the right lower quadrant abdomen. Some peristalsis is identified. IMPRESSION: Nondiagnostic right lower quadrant abdominal ultrasound for appendicitis as the appendix is not confidently identified. Heart Score: Risk Factors: Risk Factors: DM, Current or recent (<one month) smoker, HTN, HLP, family history of CAD, obesity. Risk Scores: Score 0 - 3: 2.5% MACE over next 6 weeks - Discharge Home Score 4 - 6: 20.3% MACE over next 6 weeks - Admit for Clinical Observation Score 7 - 10: 72.7% MACE over next 6 weeks - Early Invasive Strategies Course & Med Decision Making: Course & Med Decision Making Pertinent Labs and Imaging studies reviewed. (See chart for details) Exam appendicitis, further management Ms. Herbert intends to deliver with her STEEL POURER. [] Dr. Kim Murray accepts patient, will be transferred to the emergency department for evaluation by surgery team Yuriy Disclaimer: Yuriy Disclaimer: This electronic medical record was generated, in whole or in part, using a voice recognition dictation system. Departure Departure: Referrals: DEX COLON MD (PCP) KIM POPE MD Sep 19, 2020 11:26
[2020-09-19 12:01] LABS: BASO % 1 % (0-3); EOS # 0.1 x10^3/uL (0.0-0.7); EOS % 1 % (0-3); HEMATOCRIT 39.5 % (36.0-47.0); HEMOGLOBIN 13.5 g/dL (12.0-15.5); LYMPH % 14 % (24-48); MEAN CORPUSCULAR HEMOGLOBIN 33 pg (25-35); MEAN CORPUSCULAR HGB CONC 34 g/dL (31-37); MEAN CORPUSCULAR VOLUME 95 fL (79-100); MONO # 0.3 x10^3/uL (0.0-1.1); MONO % 5 % (0-9); NEUT # 5.7 x10^3uL (1.8-7.7); NEUT % 80 % (31-73); PLATELET COUNT 133 x10^3/uL (140-400); RED BLOOD COUNT 4.16 x10^6/uL (3.50-5.40); RED CELL DISTRIBUTION WIDTH 13.6 % (11.5-14.5); WHITE BLOOD COUNT 7.1 x10^3/uL (4.0-11.0)
[2020-09-19 12:03] LABS: CALCIUM 8.6 mg/dL (8.5-10.1); CREATININE 0.7 mg/dL (0.6-1.0); GFR 119.7; POTASSIUM 3.4 mmol/L (3.5-5.1)
[2020-09-19 12:09] LABS: ALBUMIN 3.1 g/dL (3.4-5.0); ALBUMIN/GLOBULIN RATIO 0.8 (1.0-1.7); TOTAL BILIRUBIN 0.2 mg/dL (0.2-1.0); TOTAL PROTEIN 6.8 g/dL (6.4-8.2)
[2020-09-19 12:33] LABS: BACTERIA,URINE MOD /HPF (0-FEW); BILIRUBIN,URINE NEG (NEG); CLARITY,URINE TURBID; COLOR,URINE YELLOW; GLUCOSE,URINE NEG (NEG); NITRITE,URINE NEG (NEG); SQUAMOUS EPITHELIAL CELL,UR MANY /LPF; UROBILINOGEN,URINE 0.2 mg/dL (0.2 mg/dL)
--- NOTE | 2020-09-19 13:39 | RAD ---
Examination: OB LIMITED History: Reason: RLQ pain, r/o appy / Spl. Instructions: / History: Comparison/Correlation: 08/15/2020 ultrasound exam Findings: Single intrauterine gestation is present. Anterior wall location of the placenta is present. movement is present with heart rate of 121 bpm. Normal quantity of amniotic fluid is present. Biparietal diameter is 5 cm corresponding 21 weeks 1 day Head circumference is 18.9 cm corresponding 21 weeks 1 day Abdominal circumference is 16 cm corresponding to 21 weeks 1 day Femur length is 3.62 cm corresponding to 20 weeks 3 days Head circumference to abdominal circumference ratio is 1.18 Estimated weight is 411 g Gestational age is 21 weeks 2 days by ultrasound with EDC of 01/28/2021 Maternal uterine cervix is closed with a length of 2.9 cm. Impression: Single living intrauterine gestation with age of 21 weeks 2 days by ultrasound. No suspicious process. Electronically signed by: Chavez Lainez MD (09/19/2020 1:37 PM) [id number]
--- NOTE | 2020-09-19 13:53 | RAD ---
Ultrasound right lower quadrant abdomen. INDICATION: 30-year-old female with right lower quadrant abdominal pain. TECHNIQUE: Grayscale and color Doppler imaging of the right lower quadrant abdomen was performed with freeze-frame documentation of imaging findings including cine loop clips. Technologist reports patient has rebound tenderness. FINDINGS: A tubular structure in the right lower quadrant abdomen is identified but the blind end of an appendix is not confidently visualized. The tubular structure measures 8 mm in diameter. There is no fluid collection identified in the right lower quadrant abdomen. Some peristalsis is identified. IMPRESSION: Nondiagnostic right lower quadrant abdominal ultrasound for appendicitis as the appendix is not confidently identified. Electronically signed by: Xenia Wen MD (09/19/2020 1:51 PM) [id number]
[2020-09-19] MEDS ORDERED: IV NORMAL SALINE 1,000ML 1,000 ML IV ONE (14:45)
[2020-09-19] MEDS ORDERED: ONDANSETRON PF 4 MG/2 ML VIAL. IVP ONE (14:45)
[2020-09-19] MEDS ORDERED: MORPHINE SULFATE 4 MG/ML DISP.SYRIN. IV ONE (14:45)
[2020-09-19] MEDS ORDERED: PIPERACILLIN/TAZOBACTAM 3.375 GM in IV NORMAL SALINE 50ML 50 ML IV ONE (14:45)
[2020-09-19] MEDS ORDERED: PIPERACILLIN/TAZOBACTAM 3.375 GM VIAL IV ONE (15:06)
[2020-09-19] MEDS ORDERED: IV NORMAL SALINE 50ML 50 ML ONE (15:06)
[2020-09-19 15:45] VITALS: BP 125/77
== END 2020-09-19 16:10 | disposition short-term general hospital (02) ==
LOC: ER 11:11
DX: O21.9 Vomiting of pregnancy, unspecified (principal); R10.31 Right lower quadrant pain; F41.9 Anxiety disorder, unspecified; F32.9 Major depressive disorder, single episode, unspecified; I10 Essential (primary) hypertension; G43.909 Migraine, unspecified, not intractable, without status migrainosus; F20.9 Schizophrenia, unspecified; Z98.890 Other specified postprocedural states; Z91.011 Allergy to milk products; Z3A.21 21 weeks gestation of pregnancy
CPT/HCPCS: 36415; 76815; 80053; 81001; 85025; 87086; 93975; 96365; 96375; 99284; J2270; J2405; J2543; J7030

== ENCOUNTER 2020-09-26 18:24 | Emergency (ER) | payer MEDICAID ==
[~2020-09-26] VITALS: Ht 160 cm; Wt 112.2 kg
[2020-09-26 18:29] VITALS: BP 152/101
[2020-09-26] MEDS ORDERED: oxyCODONE IR 5 MG TABLET PO PRN (19:15)
[2020-09-26 19:17] LABS: BILIRUBIN,URINE NEG (NEG); CLARITY,URINE CLEAR; COLOR,URINE YELLOW; GLUCOSE,URINE NEG (NEG)
[2020-09-26 19:18] LABS: BACTERIA,URINE 0 /HPF (0-FEW); NITRITE,URINE NEG (NEG); RBC,URINE 0 /HPF (0-2); SQUAMOUS EPITHELIAL CELL,UR MOD /LPF; WBC,URINE OCC /HPF (0-4)
[2020-09-26 19:19] LABS: U PREG PATIENT POSITIVE (NEG)
--- NOTE | 2020-09-26 19:43 | PHYS DOC ---
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 Patient reports recently being discharged from psychiatric facility and was subsequently seen within the past x1 week at [facility] for suprapubic pain. She was ultimately diagnosed with a UTI with concern for pyelonephritis based on patient report and admitted for x4 days. She received " IV antibiotics" which I assume was Rocephin and subsequently discharged home on Augmentin which she will finish today and subsequently will be starting Macrobid tomorrow. Patient was given a x2-day prescription for oxycodone HCL 5 mg that was filled 09/23/2020 for her pain. She has subsequently run out of this medication and is here today requesting more. She denies any fever, denies taking any other medication prior to arrival for her pain, states last oxycodone administration was at 3 PM this afternoon Review of Systems Review of Systems Fourteen body systems of review of systems have been reviewed. See HPI for pertinent positives and negative responses, other [place] all other systems are negative, non-pertinent or non-contributory Current Medications Current Medications Current Medications Medications (Trade) Dose Ordered Sig/Andrzej Start Time Stop Time Status Last Admin Dose Admin Oxycodone HCl (Roxicodone) 5 mg 1X PRN 09/26/20 19:15 Allergies Allergies Allergies Coded Allergies Type Severity Reaction Last Updated Verified Milk Containing Products Allergy Intermediate 08/09/20 Yes lisinopril Allergy Intermediate 08/09/20 No Physical Exam Physical Exam Constitutional: Well developed, well nourished, no acute distress, non-toxic appearance. HENT: Normocephalic, atraumatic, bilateral external ears normal, oropharynx moist, no oral exudates, nose normal. Eyes: PERRLA, EOMI, conjunctiva normal, no discharge. Neck: Normal range of motion, no tenderness, supple, no stridor. Cardiovascular: Heart rate regular, sinus rhythm, no murmurs rubs or gallops Lungs & Thorax: Bilateral breath sounds clear to auscultation Abdomen: Bowel sounds normal, soft, no tenderness, no masses, no pulsatile masses. Nonsurgical abdomen, no peritoneal signs. heart tones appreciated at 160 bpm Skin: Warm, dry, no erythema, no rash. Back: No tenderness, no CVA tenderness. Extremities: No tenderness, no cyanosis, no clubbing, ROM intact, no edema. Neurologic: Alert and oriented X 3, grossly normal motor & sensory function, no focal deficits noted. Psychologic: Flat affect, judgement normal, depressed mood Current Patient Data Vital Signs Vital Signs Date Time Temp Pulse Resp B/P (MAP) Pulse Ox O2 Delivery O2 Flow Rate FiO2 09/26/20 18:29 97.9 69 6 152/101 (118) 98 Room Air Lab Results Laboratory Tests Test 09/26/20 18:34 Urine Collection Type Unknown Urine Color Yellow Urine Clarity Clear Urine pH 6.5 Urine Specific [place] 1.025 Urine Protein Neg (NEG-TRACE) Urine Glucose (UA) Neg mg/dL (NEG) Urine Ketones (Stick) Neg mg/dL (NEG) Urine Blood Neg (NEG) Urine Nitrite Neg (NEG) Urine Bilirubin Neg (NEG) Urine Urobilinogen Dipstick 1.0 mg/dL (0.2 mg/dL) Urine Leukocyte Esterase Neg (NEG) Urine RBC 0 /HPF (0-2) Urine WBC Occ /HPF (0-4) Urine Squamous Epithelial Cells Mod /LPF Urine Bacteria 0 /HPF (0-FEW) Urine Test Positive (NEG) EKG EKG [] Radiology/Procedures Radiology/Procedures [] Heart Score Risk Factors: Risk Factors: DM, Current or recent (<one month) smoker, HTN, HLP, family history of CAD, obesity. Risk Scores: Risk Factors: DM, Current or recent (<one month) smoker, HTN, HLP, family history of CAD, obesity. Course & Med Decision Making Course & Med Decision Making BC is unremarkable, patient hemodynamically stable, complaining of greater than 8 out of 10 in severity pain and requesting refill of oxycodone today. I do not feel this is evidence-based for her diagnosis of pyelonephritis/UTI for which she is currently on treatment. Patient upset with this and wanting to be transferred to [facility] ER for evaluation and medication refill, I advised her that this was not indicated. I offered patient Tyleno, she countered and asked if she could have oxycodone and I declined. She then asked if she could have IV pain medication which I declined. She then asked if she could have Tylenol and IV Benadryl which I declined. Ultimately, patient took 650 mg Tylenol and subsequently discharged home in stable condition with instructions to follow-up with her primary care physician in upcoming 48 hours for repeat evaluation. Strict return precautions were discussed with good understanding by patient, all questions and concerns addressed prior to ER departure in stable condition Dragon Disclaimer Dragon Disclaimer This electronic medical record was generated, in whole or in part, using a voice recognition dictation system. Departure Departure: Impression: Primary Impression: UTI in Disposition: 01 DC HOME SELF CARE/HOMELESS Condition: STABLE Referrals: DEX COLON MD (PCP) Patient Instructions: - Urinary Tract Infection Additional Instructions: As instructed prior to ER departure, please call your primary care physician first thing tomorrow morning to schedule outpatient follow-up in upcoming 72 hours after recent [facility] hospital admission and or ER visit today As discussed, please take your previously prescribed antibiotics as scheduled to completion Also as discussed, please utilize Tylenol as needed for pain. There is no indication for further oxycodone use or other narcotic medications given your diagnosis of UTI Your evaluation was not suggestive of any emergent condition requiring medical intervention at this time. However, some abdominal problems make take more time to appear. Therefore, it is important for you to watch for any new symptoms or worsening of your current condition. Return to the Emergency Department if you experience worsening pain, persistent fevers greater than 100.4, recurrent vomiting, blood in vomit, blood in stool, dark tarry stool, chest pain, difficulty breathing, or any other concerning symptoms. ADITI TANNER DO Sep 26, 2020 19:43
[2020-09-26] MEDS ORDERED: ACETAMINOPHEN 325 MG TABLET PO ONE ×2 (20:05→20:15)
== END 2020-09-26 20:08 | disposition home or self-care (01) ==
LOC: ER 18:24
DX: O23.41 Unspecified infection of urinary tract in pregnancy, first trimester (principal); O16.1 Unspecified maternal hypertension, first trimester; G43.909 Migraine, unspecified, not intractable, without status migrainosus; Z87.440 Personal history of urinary (tract) infections; Z3A.00 Weeks of gestation of pregnancy not specified; Z91.011 Allergy to milk products; Z88.8 Allergy status to other drugs, medicaments and biological substances
CPT/HCPCS: 81001; 81025; 99283

== ENCOUNTER 2021-01-25 14:28 | Emergency (ER) | payer MEDICAID ==
[~2021-01-25] VITALS: Ht 160 cm; Wt 97.0 kg
[2021-01-25 14:52] VITALS: BP 173/127
--- NOTE | 2021-01-25 19:12 | PHYS DOC ---
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 Patient had a on 01/08, with no complications. Patient was given oxycodone to take for 2 days. Patient states that she was seen at last week for the same symptoms and was discharged with ibuprofen. She states "I still just feel really sore". (ALEXANDREA REES APRN) Review of Systems: Review of Systems: Constitutional: Denies fever or chills Eyes: Denies change in visual acuity HENT: Denies nasal congestion or sore throat Respiratory: Denies cough or shortness of breath Cardiovascular: Denies chest pain or edema GI: Denies abdominal pain, nausea, vomiting, bloody stools or diarrhea : Denies dysuria Musculoskeletal: Denies back pain or joint pain Integument: Denies rash Neurologic: Denies headache, focal weakness or sensory changes Endocrine: Denies polyuria or polydipsia Lymphatic: Denies swollen glands Psychiatric: Denies depression or anxiety (ALEXANDREA REES APRN) Allergies: Allergies: Allergies Coded Allergies Type Severity Reaction Last Updated Verified Milk Containing Products Allergy Intermediate 08/09/20 Yes lisinopril Allergy Intermediate 01/25/21 Yes (ALEXANDREA REES APRN) Physical Exam: PE: Constitutional: Well developed, well nourished, no acute distress, non-toxic appearance. [] HENT: Normocephalic, atraumatic, bilateral external ears normal, oropharynx moist, no oral exudates, nose normal. [] Eyes: PERRLA, EOMI, conjunctiva normal, no discharge. [] Neck: Normal range of motion, no tenderness, supple, no stridor. [] Cardiovascular:Heart rate regular rhythm, no murmur [] Lungs & Thorax: Bilateral breath sounds clear to auscultation [] Abdomen: Bowel sounds normal, soft, no tenderness, no masses, no pulsatile masses. [] Skin: Warm, dry, no erythema, no rash. [] Back: No tenderness, no CVA tenderness. [] Extremities: No tenderness, no cyanosis, no clubbing, ROM intact, no edema. [] Neurologic: Alert and oriented X 3, normal motor function, normal sensory function, no focal deficits noted. [] Psychologic: Affect normal, judgement normal, mood normal. [] (ALEXANDREA REES APRN) Current Patient Data: Vital Signs: Vital Signs Date Time Temp Pulse Resp B/P (MAP) Pulse Ox O2 Delivery O2 Flow Rate FiO2 01/25/21 14:52 98.1 83 22 173/127 (142) 100 Room Air (ALEXANDREA REES APRN) EKG: EKG: [] (ALEXANDREA REES APRN) Radiology/Procedures: Radiology/Procedures: [] (ALEXANDREA REES APRN) Heart Score: C/O Chest Pain: No Risk Factors: Risk Factors: DM, Current or recent (<one month) smoker, HTN, HLP, family history of CAD, obesity. Risk Scores: Score 0 - 3: 2.5% MACE over next 6 weeks - Discharge Home Score 4 - 6: 20.3% MACE over next 6 weeks - Admit for Clinical Observation Score 7 - 10: 72.7% MACE over next 6 weeks - Early Invasive Strategies (ALEXANDREA REES APRN) Course & Med Decision Making: Course & Med Decision Making Pertinent Labs and Imaging studies reviewed. (See chart for details) [] Patient's scar does not have any swelling, redness. Scar is healing properly. No signs of infection. Patient denies fevers. "I just feel sore". Patient is given a oxycodone in the emergency room. Instructed to take ibuprofen at home for further management. Patient is to follow-up with her OB. Patient states that she has an appointment in a few days with her OB. (ALEXANDREA REES APRN) Course & Med Decision Making I oversaw on the above date of service of this patient and discussed the care with the [employer]. I agree with the findings, plan of care, and disposition as documented. Electronically signed, Aditi Tanner DO (ADITI TANNER DOAna Lilia Yan Disclaimer: Yuriy Disclaimer: This electronic medical record was generated, in whole or in part, using a voice recognition dictation system. (ALEXANDREA REES APRN) Departure Departure: Impression: Primary Impression: Post-op pain Disposition: 01 DC HOME SELF CARE/HOMELESS Condition: STABLE Referrals: DEX COLON MD (PCP) Patient Instructions: Care After Delivery Additional Instructions: EMERGENCY DEPARTMENT GENERAL DISCHARGE INSTRUCTIONS Thank you for coming to [facility] (ED) today and trusting us with you care. We trust that you had a positivie experience in our Emergency Department. If you wish to speak to the department management, you may call the director at ( [phone]. YOUR FOLLOW UP INSTRUCTIONS ARE FOLLOWS: 1. Do you have a private Doctor? If you do not have a private doctor, please ask for a resource list of physicians or clinics that may be able to assist you with follow up care. 2. The Emergency Physician has interpreted your x-rays. The X-Ray specialist will also review them. If there is a change in the findings, you will be notified in 48 hours when at all possible. 3. A lab test or culture has been done, your results will be reviewed and you will be notified if you need a change in treatment. ADDITIONAL INSTRUCTIONS AND INFORMATION: 1. Your care today has been supervised by a physician who is specially trained in emergency care. Many problems require more than one evaluation for a complete diagnosis and treatment. We recommend that you schedule your follow up appointment as recommended to ensure complete treatment of you illness or injury. If you are unable to obtain follow up care and continue to have a problem, or if your condition worsens, we recommend that you return to the ED. 2. We are not able to safely determine your condition over the phone nor are we able to give sound medical advice over the phone. For these safety reasons, if you call for medical advice we will ask you to come to the ED for further evaluation. 3. If you have any questions regarding these discharge instructions please call the ED at [phone]. SAFETY INFORMATION: In the interest of safety, wellness, and injury prevention; we encourage you to wear your sealbelt, if you smoke; quite smoking, and we encourage family to use a protective helmet for bicycling and other sporting events that present an increased risk for head injury. IF YOUR SYMPTOMS WORSEN OR NEW SYMPTOMS DEVELOP, OR YOU HAVE CONCERNS ABOUT YOUR CONDITION; OR IF YOUR CONDITION WORSENS WHILE YOU ARE WAITING FOR YOUR FOLLOW UP APPOINTMENT; EITHER CONTACT YOUR PRIMARY CARE DOCTOR, THE PHYSICIAN WHOSE NAME AND NUMBER YOU WERE GIVEN, OR RETURN TO THE ED IMMEDIATELY. ALEXANDREA REES APRN Jan 25, 2021 19:12 ADITI TANNER DO Jan 27, 2021 15:02
[2021-01-25] MEDS ORDERED: OXYC-325 PO (19:45)
[2021-01-25] MEDS ORDERED: oxyCODONE/APAP 5/325 1 TAB TABLET PO ONE (20:00)
== END 2021-01-25 20:20 | disposition home or self-care (01) ==
LOC: ER 14:28
DX: O90.89 Other complications of the puerperium, not elsewhere classified (principal); G89.18 Other acute postprocedural pain; I10 Essential (primary) hypertension; Z98.890 Other specified postprocedural states; Z88.8 Allergy status to other drugs, medicaments and biological substances; Z91.011 Allergy to milk products
CPT/HCPCS: 99283

== ENCOUNTER 2021-03-28 11:24 | Emergency (ER) | payer MEDICAID ==
[~2021-03-28] VITALS: Ht 160 cm; Wt 100.0 kg
[~2021-03-28 11:24] MED LIST changes: +OXYC-325 PO
[2021-03-28] MEDS ORDERED: HYDROcodone/APAP 5/325MG 1 TAB TABLET PO ONE (12:30)
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
[2021-03-28 13:35] VITALS: BP 170/82
[2021-03-28] MEDS ORDERED: HYDR-2155 PO (13:37)
== END 2021-03-28 13:44 | disposition home or self-care (01) ==
LOC: ER 11:24
DX: S20.224A Contusion of middle back wall of thorax, initial encounter (principal); S30.0XXA Contusion of lower back and pelvis, initial encounter; S90.01XA Contusion of right ankle, initial encounter; M54.2 Cervicalgia; I10 Essential (primary) hypertension; Z91.011 Allergy to milk products; Z88.8 Allergy status to other drugs, medicaments and biological substances; Y08.89XA Assault by other specified means, initial encounter; Y93.89 Activity, other specified; Y92.89 Other specified places as the place of occurrence of the external cause; Y99.8 Other external cause status
CPT/HCPCS: 72080; 73610; 99284

== ENCOUNTER 2021-04-05 11:01 | Emergency (ER) | payer MEDICAID ==
[~2021-04-05] VITALS: Ht 160 cm; Wt 100.0 kg
[~2021-04-05 11:01] MED LIST changes: +HYDR-2155 PO
[2021-04-05 11:12] VITALS: BP 159/97
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
--- NOTE | 2021-04-05 11:39 | RAD ---
XR EXAM OF ANKLE_RIGHT 3VIEWS, XR FOOT_RIGHT 3 VIEWS 04/05/2021 11:25 AM INDICATION: Inversion injury base of fifth metatarsal pain COMPARISON: None available. TECHNIQUE: 3 views of the right foot and 3 views the right ankle are provided. FINDINGS/ IMPRESSION: There is no acute fracture or dislocation. Joint spaces are maintained. Bone mineralization is within normal limits. Soft tissue swelling about the ankle is noted. There is no soft tissue gas or osseous erosion. No radiopaque foreign body. Electronically signed by: Hanna Lopez MD (04/05/2021 11:37 AM) [id number]
[2021-04-05] MEDS ORDERED: ACETAMINOPHEN 325 MG TABLET PO ONE (11:45)
== END 2021-04-05 12:08 | disposition home or self-care (01) ==
LOC: ER 11:01
DX: S39.012A Strain of muscle, fascia and tendon of lower back, initial encounter (principal); S96.911A Strain of unspecified muscle and tendon at ankle and foot level, right foot, initial encounter; I10 Essential (primary) hypertension; Z91.011 Allergy to milk products; Z88.8 Allergy status to other drugs, medicaments and biological substances; W18.39XA Other fall on same level, initial encounter; Y93.89 Activity, other specified; Y92.89 Other specified places as the place of occurrence of the external cause; Y99.8 Other external cause status
CPT/HCPCS: 73610; 73630; 99284

== ENCOUNTER 2021-04-16 05:47 | Emergency (ER) | payer MEDICAID ==
[~2021-04-16] VITALS: Ht 160 cm; Wt 100.0 kg
[2021-04-16 05:56] VITALS: BP 172/135
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
[2021-04-16] MEDS ORDERED: HYDR25TA PO (14:30)
== END 2021-04-16 07:31 | disposition home or self-care (01) ==
LOC: ER 05:47
DX: F41.0 Panic disorder [episodic paroxysmal anxiety] (principal); I10 Essential (primary) hypertension; Z88.8 Allergy status to other drugs, medicaments and biological substances
CPT/HCPCS: 99283-25

== ENCOUNTER 2021-04-16 12:49 | Emergency (ER) | payer MEDICAID ==
[~2021-04-16] VITALS: Ht 160 cm; Wt 100.0 kg
--- NOTE | 2021-04-16 13:04 | PHYS DOC ---
Past History Past Medical History: Anxiety, Hypertension Additional Past Medical Histor: Castleman's disease, Lymphoproliferateive disorder Past Surgical History: Additional Past Surgical Histo: Tumor, R ovary and R fallopian tube removed Smoking: Non-smoker Alcohol Use: None Drug Use: None Adult General Chief Complaint Chief Complaint: ANXIETY/PANIC ATTACK HPI HPI Patient is a 30-year-old female seen several hours prior by myself and presenting via EMS for mental health evaluation. She was evaluated by mental health services this morning, no HI/SI and discussed no indication for inpatient psychiatric placement. We also disclosed that she would not be able to be placed with her child present and that she would have to find alternative childcare, either with baby's father or patient's mother. Patient did not want to do that. She returned home and attempted to go back to work but reports unwanted intrusive thoughts continued to occur causing her distress so she called EMS to bring her back here for evaluation. She is hesitant giving her baby to baby father and/or mother for personal reasons. She discloses if this is needed to have formal behavioral health evaluation she will comply. She wants to be tested to see if nothing is wrong with her. Denies any medication use, stopped her home labetalol and Klonopin by her self, no illicit drug use. No HI/SI at present Review of Systems Review of Systems Fourteen body systems of review of systems have been reviewed. See HPI for p ertinent positives and negative responses, other [place] all other systems are negative, non-pertinent or non-contributory Allergies Allergies Allergies Coded Allergies Type Severity Reaction Last Updated Verified Milk Containing Products Allergy Intermediate 08/09/20 Yes lisinopril Allergy Intermediate 01/25/21 Yes Physical Exam Physical Exam Constitutional: Well developed, well nourished, no acute distress, non-toxic appearance. HENT: Normocephalic, atraumatic, bilateral external ears normal, oropharynx moist, no oral exudates, nose normal. Eyes: PERRLA, EOMI, conjunctiva normal, no discharge. Neck: Normal range of motion, no tenderness, supple, no stridor. Cardiovascular: Heart rate regular, sinus rhythm, no murmurs rubs or gallops Lungs & Thorax: Bilateral breath sounds clear to auscultation Abdomen: Bowel sounds normal, soft, no tenderness, no masses, no pulsatile masses. Nonsurgical abdomen, no peritoneal signs Skin: Warm, dry, no erythema, no rash. Back: No tenderness, no CVA tenderness. Extremities: No tenderness, no cyanosis, no clubbing, ROM intact, no edema. Neurologic: Alert and oriented X 3, grossly normal motor & sensory function, no focal deficits noted. Psychologic: Flat affect, tearful, depressed mood, Current Patient Data Vital Signs Vital Signs Date Time Temp Pulse Resp B/P (MAP) Pulse Ox O2 Delivery O2 Flow Rate FiO2 04/16/21 12:49 98.5 110 22 150/139 (143) 98 Room Air Vital Signs Date Time Temp Pulse Resp B/P (MAP) Pulse Ox O2 Delivery O2 Flow Rate FiO2 04/16/21 12:49 98.5 110 22 150/139 (143) 98 Room Air EKG EKG [] Radiology/Procedures Radiology/Procedures [] Heart Score C/O Chest Pain: No Risk Factors: Risk Factors: DM, Current or recent (<one month) smoker, HTN, HLP, family history of CAD, obesity. Risk Scores: Risk Factors: DM, Current or recent (<one month) smoker, HTN, HLP, family history of CAD, obesity. Course & Med Decision Making Course & Med Decision Making Pertinent Labs and Imaging studies reviewed. (See chart for details) [] Dragon Disclaimer Dragon Disclaimer This electronic medical record was generated, in whole or in part, using a voice recognition dictation system. Departure Departure: Impression: Primary Impression: Anxiety Additional Impression: Panic attacks Disposition: HOME / SELF CARE / HOMELESS Condition: STABLE Referrals: DEX COLON MD (PCP) Patient Instructions: Anxiety and Panic Attacks Additional Instructions: You were seen in the ED for evaluation of anxiety and panic attacks. Anxiety is a serious medical condition with unfortunate effects on daily living. You should utilize the Behavior Health resources and attached resources provided to you during this visit and visit earlier this morning for further management of your symptoms. Scripts Hydroxyzine Hcl (HYDROXYZINE HCL) 25 Mg Tablet 1 TAB PO TID for ANXIETY for 7 Days, #21 TAB Prov: ADITI TANNER DO 04/16/21 Problem Qualifiers ADITI TANNER DO Apr 16, 2021 13:03
[2021-04-16] MEDS ORDERED: HYDR25TA PO (14:30)
[2021-04-16 14:31] VITALS: BP 172/129
== END 2021-04-16 14:33 | disposition home or self-care (01) ==
LOC: ER 12:49
DX: F41.0 Panic disorder [episodic paroxysmal anxiety] (principal); I10 Essential (primary) hypertension; Z91.011 Allergy to milk products
CPT/HCPCS: 99283

== ENCOUNTER 2021-04-18 07:30 | Emergency (ER) | payer MEDICAID ==
[~2021-04-18] VITALS: Ht 160 cm; Wt 100.0 kg
[2021-04-18 07:30] VITALS: BP 168/126
[~2021-04-18 07:30] MED LIST changes: +HYDR25TA PO
[2021-04-18] MEDS ORDERED: ACETAMINOPHEN 325 MG TABLET PO ONE (08:15)
[2021-04-18] MEDS ORDERED: QUEtiapine 25 MG TABLET. PO ONE (08:15)
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
[2021-04-18] MEDS ORDERED: SUMAtriptan SUCCINATE 50 MG TABLET PO ONE ×2 (08:33→08:45)
[2021-04-18] MEDS ORDERED: KETOROLAC 60 MG/2 ML VIAL. IM ONE (11:30)
== END 2021-04-18 11:46 | disposition home or self-care (01) ==
LOC: ER 07:30
DX: F41.9 Anxiety disorder, unspecified (principal); F32.9 Major depressive disorder, single episode, unspecified; I10 Essential (primary) hypertension; Z98.890 Other specified postprocedural states; Z91.011 Allergy to milk products; Z88.8 Allergy status to other drugs, medicaments and biological substances
CPT/HCPCS: 96372; 99284; J1885

== ENCOUNTER 2021-04-22 11:21 | Emergency (ER) | payer MEDICAID ==
[~2021-04-22] VITALS: Ht 160 cm; Wt 100.0 kg
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
== END 2021-04-22 15:11 | disposition home or self-care (01) ==
LOC: ER 11:21
DX: M54.2 Cervicalgia (principal); I10 Essential (primary) hypertension; F41.9 Anxiety disorder, unspecified; F32.9 Major depressive disorder, single episode, unspecified; Z88.8 Allergy status to other drugs, medicaments and biological substances
CPT/HCPCS: 99281

== ENCOUNTER 2021-04-25 13:07 | Emergency (ER) | payer MEDICAID ==
[~2021-04-25] VITALS: Ht 160 cm; Wt 100.0 kg
[2021-04-25 13:10] VITALS: BP 172/122
[2021-04-25] MEDS ORDERED: HYDR25TA PO (14:17)
--- NOTE | 2021-04-25 14:18 | PHYS DOC ---
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 Patient states she was seen here 2 weeks ago and given a prescription for anxiety medication that did not help but would like the same medication represcribed to her. Patient states that she has not yet had a chance to make an appointment with her primary care provider nor the guidance Center to assist her with a mental health evaluation and management of her psychiatric medications. Patient states that she has been worried about her daughter as she thinks she might have food poisoning because the formula smells strange to her. Patient denies homicidal or suicidal ideations. Patient denies chest pains, headaches, chest congestion or shortness of breath. Patient denies abdominal pain, nausea, vomiting, or diarrhea. Patient denies urinary burning, urinary pressure, vaginal discharge, or STI concerns. Patient denies any other physical complaints or physical concerns stating she is just here for refill of hydroxyzine. Review of Systems Review of Systems 14 body systems of review of systems have been reviewed. See HPI for pertinent positives and negative responses, otherwise all other systems are negative, nonpertinent or noncontributory. Allergies Allergies Allergies Coded Allergies Type Severity Reaction Last Updated Verified Milk Containing Products Allergy Intermediate 04/18/21 Yes lisinopril Allergy Intermediate 04/18/21 Yes Physical Exam Physical Exam Constitutional: Well developed, well nourished, no acute distress, non-toxic appearance. 30-year-old female in no apparent distress. HENT: Normocephalic, atraumatic. Eyes: Conjunctiva normal, no discharge. Neck: Normal range of motion. Cardiovascular: No cyanosis appreciated, distal cap refill less than 2 seconds. Lungs & Thorax: Patient is in no obvious respiratory distress, no audible adventitious lung sounds appreciated. Skin: Warm, dry, no erythema, no rash. Back: No tenderness. No CVA tenderness on the left or right. Extremities: No tenderness, no cyanosis, no clubbing, ROM intact, no edema. Neurologic: Alert and oriented X 3, normal motor function, normal sensory function, no focal deficits noted. Psychologic: Affect normal, judgement normal, mood normal. Current Patient Data Vital Signs Vital Signs Date Time Temp Pulse Resp B/P (MAP) Pulse Ox O2 Delivery O2 Flow Rate FiO2 04/25/21 13:10 98.0 90 18 172/122 (139) 96 Room Air EKG EKG [] Radiology/Procedures Radiology/Procedures [] Heart Score C/O Chest Pain: No Risk Factors: Risk Factors: DM, Current or recent (<one month) smoker, HTN, HLP, family history of CAD, obesity. Risk Scores: Risk Factors: DM, Current or recent (<one month) smoker, HTN, HLP, family history of CAD, obesity. Course & Med Decision Making Course & Med Decision Making Pertinent Labs and Imaging studies reviewed. (See chart for details) 30-year-old female, vital signs reviewed, presents to the emergency department with chief complaint of wanting her hydroxyzine refilled for anxiety. Patient's physical examination was unremarkable. Discussed with patient need to follow- up with her primary care physician Dr. Colon for ongoing evaluation of psychiatric problems and medication management. Discussed with patient need for her to follow-up with the guidance Center as was recommended to her on previous visits this year, patient states she would rather follow-up with her primary care doctor first before making an appointment with the guidance Center. Patient states she will make an appointment today to see her primary care physician. Patient gave verbal understanding of discharge home instructions, medication refill, follow-up with PCP tomorrow, return to ER precautions or concerns, patient had no further questions or concerns and was discharged home. Patient's primary ED nurse reports that after she had discharged patient to home and was walking patient to ED exit, patient stated that she wants to have her labs drawn. I spoke with patient at bedside, patient states that she now has burning with urination and wants to have her labs drawn. Patient denied any vaginal discharge or other urinary tract infection type complaints. Patient did remain nontoxic during her ER stay and vital signs remained stable, discussed with patient will test her urine for infectious process, patient was amenable to this plan. The patient gave a urine sample for urinalysis assay. Patient's urine was positive for yeast and simple cystitis results. Discussed with patient findings, patient continues to deny any vaginal discharge or malodorous discharge, discussed with patient will prescribe Keflex for UTI and clotrimazole for yeast infection, patient gave verbal understanding of this, patient states she will follow-up with her primary care physician tomorrow, patient remained stable and was ambulatory to ED exit without incident. Dragon Disclaimer Dragon Disclaimer This electronic medical record was generated, in whole or in part, using a voice recognition dictation system. Departure Departure: Impression: Primary Impression: Encounter for medication refill Additional Impressions: Anxiety Yeast infection Urinary tract infection Disposition: HOME / SELF CARE / HOMELESS Condition: GOOD Referrals: DEX COLON MD (PCP) Additional Instructions: You were seen today in the emergency department for anxiety problems and to obta in a refill of your anxiety medication. I am prescribing your hydroxyzine, please follow-up with Dr. Colon for reevaluation of your anxiety issues as Dr. Colon may consider changing your anxiety medication. Please return to the emergency department for worsening symptoms or other concerns. EMERGENCY DEPARTMENT GENERAL DISCHARGE INSTRUCTIONS Thank you for coming to [facility] (ED) today and trusting us with you care. We trust that you had a positivie experience in our Emergency Department. If you wish to speak to the department management, you may call the director at [phone]. YOUR FOLLOW UP INSTRUCTIONS ARE FOLLOWS: 1. Do you have a private Doctor? If you do not have a private doctor, please ask for a resource list of physicians or clinics that may be able to assist you with follow up care. 2. The Emergency Physician has interpreted your x-rays. The X-Ray specialist will also review them. If there is a change in the findings, you will be notified in 48 hours when at all possible. 3. A lab test or culture has been done, your results will be reviewed and you will be notified if you need a change in treatment. ADDITIONAL INSTRUCTIONS AND INFORMATION: 1. Your care today has been supervised by a physician who is specially trained in emergency care. Many problems require more than one evaluation for a complete diagnosis and treatment. We recommend that you schedule your follow up appointment as recommended to ensure complete treatment of you illness or injury. If you are unable to obtain follow up care and continue to have a problem, or if your condition worsens, we recommend that you return to the ED. 2. We are not able to safely determine your condition over the phone nor are we able to give sound medical advice over the phone. For these safety reasons, if you call for medical advice we will ask you to come to the ED for further evaluation. 3. If you have any questions regarding these discharge instructions please call the ED at [phone]. SAFETY INFORMATION: In the interest of safety, wellness, and injury prevention; we encourage you to wear your sealbelt, if you smoke; quite smoking, and we encourage family to use a protective helmet for bicycling and other sporting events that present an increased risk for head injury. IF YOUR SYMPTOMS WORSEN OR NEW SYMPTOMS DEVELOP, OR YOU HAVE CONCERNS ABOUT YOUR CONDITION; OR IF YOUR CONDITION WORSENS WHILE YOU ARE WAITING FOR YOUR FOLLOW UP APPOINTMENT; EITHER CONTACT YOUR PRIMARY CARE DOCTOR, THE PHYSICIAN WHOSE NAME AND NUMBER YOU WERE GIVEN, OR RETURN TO THE ED IMMEDIATELY. Scripts Clotrimazole (CLOTRIMAZOLE 3) 21 Gm Cream.appl 1 APPFUL VG QHS for YEAST INFECTION for 3 Days, #21 GM 0 Refills Prov: DAVID MCKEON APRN 04/25/21 Cephalexin (CEPHALEXIN) 500 Mg Capsule 1 CAP PO BID for UTI for 7 Days, #14 CAP 0 Refills Prov: DAVID MCKEON APRN 04/25/21 Hydroxyzine Hcl (HYDROXYZINE HCL) 25 Mg Tablet 1 TAB PO TID for anxiety, #21 TAB 0 Refills Prov: DAVID MCKEON APRN 04/25/21 Problem Qualifiers Additional Impressions: Urinary tract infection Urinary tract infection type: site unspecified Hematuria presence: with hematuria Qualified Codes: N39.0 - Urinary tract infection, site not specified; R31.9 - Hematuria, unspecified DAVID MCKEON APRN Apr 25, 2021 14:18
[2021-04-25 15:11] LABS: BILIRUBIN,URINE NEG (NEG); CLARITY,URINE CLEAR; COLOR,URINE YELLOW; GLUCOSE,URINE NEG (NEG)
[2021-04-25 15:12] LABS: NITRITE,URINE NEG (NEG)
[2021-04-25 15:26] LABS: BACTERIA,URINE FEW /HPF (0-FEW); SQUAMOUS EPITHELIAL CELL,UR FEW /LPF
[2021-04-25 15:27] LABS: YEAST,URINE PRESENT /HPF
[2021-04-25] MEDS ORDERED: CEPH500C PO (15:34)
[2021-04-25] MEDS ORDERED: CLOT21CR7 VG (15:35)
[2021-04-26] MEDS ORDERED: PHEN-318 PO (11:42)
[2021-04-26] MEDS ORDERED: FLUC200T PO (11:42)
== END 2021-04-25 14:31 | disposition home or self-care (01) ==
LOC: ER 13:07
DX: F41.9 Anxiety disorder, unspecified (principal); Z76.0 Encounter for issue of repeat prescription; B37.9 Candidiasis, unspecified; N39.0 Urinary tract infection, site not specified; F32.9 Major depressive disorder, single episode, unspecified; I10 Essential (primary) hypertension; Z98.890 Other specified postprocedural states; Z91.011 Allergy to milk products; Z88.8 Allergy status to other drugs, medicaments and biological substances
CPT/HCPCS: 81001; 87086; 99283

== ENCOUNTER 2021-04-26 09:49 | Emergency (ER) | payer MEDICAID ==
[~2021-04-26] VITALS: Ht 160 cm; Wt 100.0 kg
[~2021-04-26 09:49] MED LIST changes: +CEPH500C PO; +CLOT21CR7 VG
[2021-04-26 11:06] LABS: CLARITY,URINE CLEAR; COLOR,URINE AMBER
[2021-04-26 11:07] LABS: BILIRUBIN,URINE SMALL (NEG); GLUCOSE,URINE NEG (NEG); NITRITE,URINE NEG (NEG)
[2021-04-26 11:17] LABS: BACTERIA,URINE FEW /HPF (0-FEW); RBC,URINE 0 /HPF (0-2); SQUAMOUS EPITHELIAL CELL,UR OCC /LPF; WBC,URINE OCC /HPF (0-4)
[2021-04-26] MEDS ORDERED: FLUC200T PO (11:42)
[2021-04-26] MEDS ORDERED: PHEN-318 PO (11:42)
--- NOTE | 2021-04-26 11:42 | PHYS DOC ---
Past History Past Medical History: Anxiety, Depression, Hypertension Additional Past Medical Histor: Castleman's disease, Lymphoproliferateive disorder Past Surgical History: Additional Past Surgical Histo: Tumor, R ovary and R fallopian tube removed Smoking: Non-smoker Alcohol Use: None Drug Use: None General Adult EDM: Chief Complaint: PAIN ON URINATION HPI: HPI: 30-year-old female presents with report of dysuria and suprapubic discomfort which has been ongoing for the past few days. Patient seen yesterday for same and diagnosed with urinary tract infection and yeast infection. Patient prescribed medication. Today reports some subjective fever/chills and generalized malaise. Patient also presents with her daughter due to concern for excessive vomiting after bottle feeds. Patient denies concern for STDs. Reports history of ovarian cyst with oophorectomy to the right. Review of Systems: Review of Systems: Constitutional: Reports subjective fever and chills Eyes: Denies redness or eye pain HENT: Denies nasal congestion or sore throat Respiratory: Denies cough or shortness of breath Cardiovascular: Denies chest pain or palpitations GI: Denies abdominal pain, nausea, or vomiting /[employer] RES[employer] INTERN: Reports dysuria and suprapubic tenderness Musculoskeletal: Denies back pain or joint pain Integument: Denies rash or skin lesions Neurologic: Denies headache, focal weakness or sensory changes Complete systems were reviewed and found to be within normal limits, except as documented in this note. Allergies: Allergies: Allergies Coded Allergies Type Severity Reaction Last Updated Verified Milk Containing Products Allergy Intermediate 04/18/21 Yes lisinopril Allergy Intermediate 04/18/21 Yes Physical Exam: PE: Constitutional: Well developed, well nourished, no acute distress, non-toxic appearance HENT: Normocephalic, atraumatic Eyes: Conjunctiva normal, no discharge Neck: Normal range of motion, no tenderness, supple Lungs & Thorax: No respiratory distress, equal chest rise and fall Abdomen: Soft, no tenderness, no guarding/rebound tenderness/distention Pelvic exam: Migel- Kelley RN, external genitalia normal, scant white discharge noted in vaginal vault, no CMT, no left-sided adnexal tenderness (right ovary with prior oophorectomy) Skin: Warm, dry, no erythema, no rash Back: No tenderness, no CVA tenderness Extremities: No tenderness, ROM intact, no edema Neurologic: Alert and oriented X 3, no focal deficits noted Psychologic: Affect flat, judgment normal Current Patient Data: Labs: Laboratory Tests Test 04/26/21 10:05 04/26/21 10:34 Urine Collection Type Unknown Urine Color [place] Urine Clarity Clear Urine pH 6.0 Urine Specific [place] 1.025 Urine Protein 30 mg/dl (NEG-TRACE) Urine Glucose (UA) Neg mg/dL (NEG) Urine Ketones (Stick) Trace mg/dL (NEG) Urine Blood Neg (NEG) Urine Nitrite Neg (NEG) Urine Bilirubin Small (NEG) Urine Urobilinogen Dipstick 1.0 mg/dL (0.2 mg/dL) Urine Leukocyte Esterase Neg (NEG) Urine RBC 0 /HPF (0-2) Urine WBC Occ /HPF (0-4) Urine Squamous Epithelial Cells Occ /LPF Urine Bacteria Few /HPF (0-FEW) POC Urine HCG, Qualitative hcg negative (Negative) Microbiology 04/26/21 Wet Prep - Final, Complete Vital Signs: Vital Signs Date Time Temp Pulse Resp B/P (MAP) Pulse Ox O2 Delivery O2 Flow Rate FiO2 04/26/21 09:59 97.9 85 18 156/103 (120) 97 Room Air EKG: EKG: [] Radiology/Procedures: Radiology/Procedures: [] Heart Score: C/O Chest Pain: N/A Course & Med Decision Making: Course & Med Decision Making Pertinent Lab studies reviewed. (See chart for details) Patient presents with report of dysuria and suprapubic tenderness. Reports was diagnosed with a UTI and yeast infection yesterday. Patient started on Keflex. Pelvic exam performed today. Chlamydia/gonorrhea cultures pending. Patient de nies recent sexual activity. Wet mount negative. UA without signs of infection. Patient advised to continue antibiotic therapy. Decision to provide diflucan to cover for yeast as patient reports cream hasn't helped. Will also provide Pyridium for symptomatic treatment. Patient stable for discharge with outpatient follow-up with PCP/[employer]EARCH INTERN. Discussed findings and plan with patient, who acknowledges understanding and agreement. Yuriy Disclaimer: Yuriy Disclaimer: This electronic medical record was generated, in whole or in part, using a voice recognition dictation system. Departure Departure: Impression: Primary Impression: Dysuria Disposition: HOME / SELF CARE / HOMELESS Condition: STABLE Referrals: DEX COLON MD (PCP) Patient Instructions: Dysuria Additional Instructions: Increase fluid hydration. Discontinue previously prescribed cream for yeast infection. You have been given a dose of oral antifungal medication here in the Emergency Department. Take additional dose following completion of previously prescribed antibiotics for your urinary tract infection. Scripts Fluconazole (DIFLUCAN) 200 Mg Tablet 1 TAB PO DAILY for yeast infection, #1 TAB Take upon completion of your antibiotic therapy. Prov: DAVID CRUZ DO 04/26/21 Phenazopyridine Hcl (PYRIDIUM) 200 Mg Tablet 200 MG PO TID for urinary tract infection, #6 TAB Prov: DAVID CRUZ DO 04/26/21 DAVID CRUZ DO Apr 26, 2021 11:42
[2021-04-26] MEDS ORDERED: FLUCONAZOLE 100 MG TABLET. PO ONE (11:45)
[2021-04-26] MEDS ORDERED: PHENAZOPYRIDINE 200 MG TABLET. PO ONE (11:45)
[2021-04-26 11:58] VITALS: BP 149/92
[2021-04-28 16:10] LABS: CHLAMYDIA PROBE Negative (Negative)
== END 2021-04-26 12:10 | disposition home or self-care (01) ==
LOC: ER 09:49
DX: R30.0 Dysuria (principal); R50.9 Fever, unspecified; R53.81 Other malaise; F41.9 Anxiety disorder, unspecified; F32.9 Major depressive disorder, single episode, unspecified; I10 Essential (primary) hypertension; Z98.890 Other specified postprocedural states; Z91.011 Allergy to milk products; Z88.8 Allergy status to other drugs, medicaments and biological substances
CPT/HCPCS: 36415; 81001; 81025; 87491; 87591; 99284; Q0111

== ENCOUNTER 2021-04-26 18:51 | Emergency (ER) | payer MEDICAID ==
[~2021-04-26] VITALS: Ht 160 cm; Wt 100.0 kg
[~2021-04-26 18:51] MED LIST changes: +FLUC200T PO; +PHEN-318 PO
[2021-04-26 18:54] VITALS: BP 143/90
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
== END 2021-04-26 19:08 | disposition home or self-care (01) ==
LOC: ER 18:51
DX: F41.9 Anxiety disorder, unspecified (principal); Z77.21 Contact with and (suspected) exposure to potentially hazardous body fluids; F32.9 Major depressive disorder, single episode, unspecified; I10 Essential (primary) hypertension; Z98.890 Other specified postprocedural states; Z91.011 Allergy to milk products; Z88.8 Allergy status to other drugs, medicaments and biological substances
CPT/HCPCS: 99283